=== PATIENT | male | born 1940 | race Caucasian/White ===

== ENCOUNTER 2021-02-10 10:46 | Emergency (ER) | payer MEDICARE ==
[2021-02-10 10:50] VITALS: RESP 16; TEMP 97.8
[2021-02-10 10:58] LABS: Appearance,Urine Clear (Clear); Bilirubin,Urine Negative (Negative); Blood,Urine Negative (Negative); Color,Urine Light Yellow; Glucose,Urine (UA) 4+ (Negative); Ketones,Urine Negative (Negative); Leukocyte Esterase,Urine Negative (Negative); Nitrite,Urine Negative (Negative); Protein,Urine Negative (Negative); Specific Gravity,Urine 1.027 (1.001-1.035); Urobilinogen,Urine <2.0 mg/dL (<2.0)
--- NOTE | 2021-02-10 11:11 | ED ---
Male Urogenital HPI - General Chief complaint: Urogenital Stated complaint: Frequent Urination Source: patient, RN notes reviewed, old records reviewed Mode of arrival: ambulatory Limitations: no limitations - History of Present Illness Initial comments: 80-year-old well-appearing white male presents to the emergency room with family member complaining of urinary frequency and bladder fullness for 6 months. Patient states that he seen Dr. Benavides in August and was told that he did have a enlarged prostate and was put on Flomax. He states that he has increased his dose to twice a day because he still has the symptoms of fullnes, stating when he urinates he still feels like his bladder is full. Patient states that it is now interrupting his sleep where he is unable to Patient denies any fevers, nausea, vomiting or diarrhea. He does not have any pain, complains of frequency and feeling of incomplete emptying. Patient states he's had no change in other medications other than jardiance. Patient is a former smoker. MD Complaint: dysuria -: month(s) (6) Radiation: none Severity scale (1-10): 0 Quality: other (Fullness) Consistency: intermittent Improves with: urination Worsens with: none Reports: other (Increased thirst) - Related Data Allergies Allergy/AdvReac Type Severity Reaction Status Date / Time No Known Allergies Allergy Verified 02/10/21 10:47 Review of Systems ROS Statement: Those systems with pertinent positive or pertinent negative responses have been documented in the HPI. ROS Other: All systems not noted in ROS Statement are negative. Past Medical History Past Medical History: No Reported History History of Any Multi-Drug Resistant Organisms: None Reported Additional Past Surgical History / Comment(s): CABG, lip CA Past Psychological History: No Psychological Hx Reported Smoking Status: Never smoker Past Alcohol Use History: Daily Past Drug Use History: None Reported General Exam Limitations: no limitations General appearance: alert, in no apparent distress Head exam: Present: atraumatic, normocephalic, normal inspection Eye exam: Present: normal appearance, PERRL, EOMI. Absent: scleral icterus, conjunctival injection, periorbital swelling Pupils: Present: normal accommodation ENT exam: Present: normal exam, normal oropharynx, mucous membranes moist Neck exam: Present: normal inspection, full ROM. Absent: tenderness, meningismus, lymphadenopathy Respiratory exam: Present: normal lung sounds bilaterally. Absent: respiratory distress, wheezes, rales, rhonchi, stridor, chest wall tenderness, accessory muscle use, decreased breath sounds, prolonged expiratory Cardiovascular Exam: Present: regular rate, normal rhythm, normal heart sounds. Absent: systolic murmur, diastolic murmur, rubs, gallop, clicks GI/Abdominal exam: Present: soft, tenderness (suprapubic with palpation), normal bowel sounds. Absent: distended, guarding, rebound, rigid Extremities exam: Present: full ROM, normal capillary refill. Absent: tenderne ss, pedal edema, joint swelling, calf tenderness Back exam: Present: normal inspection, full ROM. Absent: tenderness, CVA tenderness (R), CVA tenderness (L), muscle spasm, paraspinal tenderness, vertebral tenderness, rash noted Neurological exam: Present: alert, oriented X3, CN II-XII intact Psychiatric exam: Present: normal affect, normal mood Skin exam: Present: warm, dry, intact, normal color. Absent: rash, cyanosis, diaphoretic, erythema, petechiae, pallor, mottled Course Vital Signs 02/10/21 10:47 Temperature 97.8 F Pulse Rate 93 Respiratory 16 Rate Blood Pressure 114/73 O2 Sat by Pulse 98 Oximetry Medical Decision Making - Medical Decision Making UA shows 4+ glucose but negative for leukocyte esterase, nitrites. Accu-Check 185. Post void bladder scan shows 900 mL. Ll[place] catheter placed patient will be discharged home with a leg bag to follow up with urology. Patient will be given a leg bag and Tylenol threes at discharge. Directed to follow up with urology within the next 7 days. Strict parameters to return to the emergency room with no urine draining into the bag, fever, nausea or vomiting or increased pain. Case discussed with Dr. Kothari. - Lab Data Lab Results 02/10/21 02/10/21 Range/Units 10:52 12:29 POC Glucose (mg/dL) 185 H (75-99) mg/dL POC Glu Row Boss Hoeing ID Ana Cristina Bishop Urine Color Light Yellow Urine Appearance Clear (Clear) Urine pH 5.0 (5.0-8.0) Ur Specific [place] 1.027 (1.001-1.035) Urine Protein Negative (Negative) Urine Glucose (UA) 4+ H (Negative) Urine Ketones Negative (Negative) Urine Blood Negative (Negative) Urine Nitrite Negative (Negative) Urine Bilirubin Negative (Negative) Urine Urobilinogen <2.0 (<2.0) mg/dL Ur Leukocyte Esterase Negative (Negative) Disposition Clinical Impression: Urinary retention Disposition: HOME SELF-CARE Condition: Good Additional Instructions: Keep Llanes catheter in place until seen urology. Use Tylenol threes as needed for pain. Return to the emergency room with any decreased output from the Llanes catheter, fever, or increased pain. Is patient prescribed a controlled substance at d/c from ED?: No Referrals: Andre Berger DO [Primary Care Provider] - 1-2 days Carlitos Clark MD [STAFF PHYSICIAN] - 1-2 days Time of Disposition: 12:45
[2021-02-10] MEDS ORDERED: LIDOCAINE URO-JET JELLY 2% 5 ML KIT URETHRAL ONE (11:48)
[2021-02-10 12:40] LABS: Glucose,Whole Blood 185 mg/dL (75-99)
[2021-02-10] MEDS ORDERED: HYDROcodone/APAP 5-325MG 1 EACH TAB PO STA (12:41)
[2021-02-10] MEDS ORDERED: ACET/COD 300 MG/30 MG STARTER PACK 6 TAB BTL PO STA (12:42)
[2021-02-10 13:06] VITALS: BP 136/89; PULSE 78
== END 2021-02-10 13:05 | disposition home or self-care (01) ==
LOC: EC 10:46
DX: R33.9 Retention of urine, unspecified (principal); R35.0 Frequency of micturition; R30.0 Dysuria; Z87.891 Personal history of nicotine dependence
CPT/HCPCS: 36415; 51702; 51798; 81003; 99283

== ENCOUNTER 2021-09-29 06:14 | Day surgery (SDC) | payer MEDICARE ==
[2021-09-05 10:23] VITALS: BMI 23.2
--- NOTE | 2021-09-27 20:09 | P.GSHP ---
History of Present Illness H&P Date: 09/05/21 Chief Complaint: Urinary retention The patient is a 81-year-old white male who I initially saw in August 2020 for BPH. At that time, bladder emptying was adequate and he was not particularly bothered by his voiding symptoms. He was taking tamsulosin 0.8 mg daily at that time. In February he had an episode of acute urinary retention. 1100 mL of urine was drained from the bladder. Finasteride 5 mg daily was prescribed, to be taken in addition to tamsulosin. He was taught to perform intermittent self- catheterization, which he continues to do. However, he is able to void only small amounts. Urodynamic testing has shown normal detrusor function. Cystoscopy has shown trilobar BPH. He has elected to undergo a TURP to relieve his bladder outflow obstruction. - Constitutional Constitutional: Denies chills, Denies fever - Cardiovascular Cardiovascular: Reports high blood pressure - Genitourinary (Male) Genitourinary: Reports as per HPI Past Medical History Past Medical History: Coronary Artery Disease (CAD), Diabetes Mellitus, Hyperlipidemia, Hypertension Additional Past Medical History / Comment(s): BPH History of Any Multi-Drug Resistant Organisms: None Reported Past Surgical History: Coronary Bypass/CABG Additional Past Surgical History / Comment(s): Lip CA Past Psychological History: No Psychological Hx Reported Smoking Status: Former smoker Past Alcohol Use History: Daily Past Drug Use History: None Reported - Past Family History Mother Family Medical History: No Reported History Medications and Allergies Home Medications Medication Instructions Recorded Confirmed Type Aspirin [Adult Low Dose Aspirin EC] 81 mg PO DAILY 09/05/21 09/05/21 History Carvedilol [Coreg] 6.25 mg PO BID 09/05/21 09/05/21 History Empagliflozin [Jardiance] 25 mg PO DAILY 09/05/21 09/05/21 History Finasteride [Proscar] 5 mg PO DAILY 09/05/21 09/05/21 History Folic Acid 0.8 mg PO DAILY 09/05/21 09/05/21 History Lisinopril-Hctz 20-12.5 mg 1 tab PO DAILY 09/05/21 09/05/21 History [Zestoretic 20-12.5] Lovastatin [Mevacor] 20 mg PO DAILY 09/05/21 09/05/21 History Pioglitazone [Actos] 45 mg PO DAILY 09/05/21 09/05/21 History Tamsulosin [Flomax] 0.4 mg PO BID 09/05/21 09/05/21 History metFORMIN HCL [Glucophage] 1,000 mg PO BID 09/05/21 09/05/21 History Allergies Allergy/AdvReac Type Severity Reaction Status Date / Time No Known Allergies Allergy Verified 09/05/21 10:12 Surgical - Exam - General well developed, well nourished, no distress - Respiratory normal respiratory effort - Abdomen Abdomen: soft, non tender, no guarding, no rigid, no rebound Hernia: umbilical - Genitourinary normal penis with no external lesions, testicles non-tender - Rectum Rectum: normal sphincter tone, no masses, other (Prostate moderately enlarged an d smooth) - Psychiatric oriented to time, oriented to person, oriented to place, speech is normal, memory intact Assessment and Plan (1) Retention of urine, unspecified Status: Acute Code(s): R33.9 - RETENTION OF URINE, UNSPECIFIED SNOMED Code(s): 051552445 (2) Benign prostatic hyperplasia with lower urinary tract symptoms Status: Acute Code(s): N40.1 - BENIGN PROSTATIC HYPERPLASIA WITH LOWER URINARY TRACT SYMP SNOMED Code(s): 506484729 Plan: Cystoscopy, bipolar transurethral resection of prostate (TURP). The procedure has been reviewed in detail with the patient. He is aware of potential risks, which include anesthesia, bleeding, infection, urinary incontinence, and persistent urinary retention. His biggest risk is the requirement to be off Plavix perioperatively. He has been cleared by Dr. Villavicencio for this.
[2021-09-29] MEDS ORDERED: ONDANSETRON 4 MG/2 ML VIAL IVP ONE ×2 (06:37→12:48)
[2021-09-29] MEDS ORDERED: DEXAMETHASONE SOD PHOSPHATE 4 MG/ML 1 ML VIAL IV ONE (06:37)
[2021-09-29] MEDS ORDERED: HYDROmorphone 0.5 MG/0.5 ML SYRINGE IVP PRN (06:37)
[2021-09-29] MEDS: LACTATED RINGERS 1,000 ML IV SCH ×2 (06:52→13:12)
[2021-09-29] MEDS ORDERED: LIDOCAINE 1% (10MG/ML) FOR IV START INTRADERMA ONE (06:53)
[2021-09-29 07:08] LABS: Glucose,Whole Blood 166 mg/dL (75-99)
[2021-09-29] MEDS ORDERED: fentaNYL (PF) 50 MCG/ML 2 ML AMP ONE (07:30)
[2021-09-29] MEDS ORDERED: CALCIUM CHLORIDE 100 MG/ML 10 ML SYRINGE ONE (07:30)
[2021-09-29] MEDS ORDERED: ePHEDrine 50 MG/ML 1 ML VIAL ONE (07:30)
[2021-09-29] MEDS ORDERED: HYDROmorphone (PF) 1 MG/ML ONE (07:30)
[2021-09-29] MEDS ORDERED: PHENYLEPHRINE-0.9% NACL SYG 1,000 MCG/10 ML SYRINGE ONE (07:30)
[2021-09-29] MEDS ORDERED: PROPOFOL 10 MG/ML 20 ML VIAL IV ONE (07:30)
[2021-09-29] MEDS ORDERED: MIDAZOLAM 2 MG/2 ML VIAL ONE (07:30)
[2021-09-29] MEDS ORDERED: LIDOCAINE 1% INJ 10MG/ML (20 ML MDV) ONE (07:30)
[2021-09-29] MEDS ORDERED: SUCCINYLCHOLINE CHLORIDE 100 MG/5 ML SYR IV ONE (07:30)
[2021-09-29] MEDS ORDERED: LACTATED RINGERS 1,000 ML IV ONE (10:48)
[2021-09-29 10:56] VITALS: TEMP 97.4
--- NOTE | 2021-09-29 11:08 | P.OP ---
Date of Procedure: 09/29/21 Preoperative Diagnosis: BPH with obstruction Postoperative Diagnosis: Same Procedure(s) Performed: Cystoscopy, bipolar transurethral resection of prostate (TURP) Anesthesia: BAILEE Surgeon: Nikolas Sigala Estimated Blood Loss (ml): 50 IV fluids (ml): 1,500 Pathology: other (Prostate chips) Condition: stable Disposition: PACU Indications for Procedure: The patient is a 81-year-old white male who I initially saw in August 2020 for BPH. At that time, bladder emptying was adequate and he was not particularly bothered by his voiding symptoms. He was taking tamsulosin 0.8 mg daily at that time. In February he had an episode of acute urinary retention. 1100 mL of urine was drained from the bladder. Finasteride 5 mg daily was prescribed, to be taken in addition to tamsulosin. He was taught to perform intermittent self- catheterization, which he continues to do. However, he is able to void only small amounts. Urodynamic testing has shown normal detrusor function. Cystoscopy has shown trilobar BPH. He has elected to undergo a TURP to relieve his bladder outflow obstruction. Operative Findings: Trilobar BPH, complete occlusion. Description of Procedure: The patient was taken in the operating room and placed in the dorsolithotomy position. The external genitalia was prepped and draped sterilely. The 25- [place] [employer] resectoscope sheath was introduced into the bladder under direct vis ion. The urethra appeared normal. The prostate was visually occluded, with a trilobar configuration.. The bladder was inspected. Both ureteral orifices were of normal anatomic location and configuration. No tumors or foreign bodies were seen. Using the bipolar cutting loop, the median lobe was resected. Next, the lateral lobes were resected down to the surgical capsule. The floor of the prostate was then resected, proximal to the verumontanum. There was more tissue on the right side than the left, and there was considerable tissue at the floor of the prostatic urethra. Next, the remaining anterior tissue was resected. The residual apical tissue was then carefully resected, with care taken to avoid injury to the external urinary sphincter. The apical tissue extended beyond the verumontanum, and it was resected incompletely. The resection was carried down to the surgical capsule bilaterally. The prostatic fossa was then carefully examined, and any areas of bleeding were controlled with electrocautery. Excellent hemostasis was attained. The resectoscope was withdrawn into the bulbous urethra. The external urinary sphincter remained intact. The prostatic fossa was open. The [employer] evacuator was used to remove all prostate chips from the bladder. These were saved and sent for pathologic examination. The resectoscope was removed, and a 20 [place] Llanes catheter was placed. The return was essentially clear. The patient tolerated the procedure well was taken to the recovery room in stable condition.
[2021-09-29 12:29] LABS: Glucose,Whole Blood 203 mg/dL (75-99)
[2021-09-29] MEDS ORDERED: ONDANSETRON 4 MG/2 ML VIAL ONE (12:46)
[2021-09-29 15:12] VITALS: BP 136/76; PULSE 86; RESP 18
== END 2021-09-29 15:19 | disposition home or self-care (01) ==
LOC: OR 06:14
PROVIDERS: ATTEND Urology
DX: N40.1 Benign prostatic hyperplasia with lower urinary tract symptoms (principal); I25.10 Atherosclerotic heart disease of native coronary artery without angina pectoris; I10 Essential (primary) hypertension; E78.5 Hyperlipidemia, unspecified; E11.9 Type 2 diabetes mellitus without complications; N40.0 Benign prostatic hyperplasia without lower urinary tract symptoms; Z95.1 Presence of aortocoronary bypass graft
CPT/HCPCS: 52601; 88305; J2250; J1100; J0690; J2405; J2001; J3010; J1170; J2370; J0330; J2704

== ENCOUNTER 2021-10-07 15:11 | Emergency (ER) | payer MEDICARE ==
[2021-10-07 15:28] VITALS: RESP 18; TEMP 97.4
[2021-10-07] MEDS ORDERED: SODIUM CHLORIDE 0.9% 1,000 ML IV STA (15:28)
[2021-10-07 15:46] LABS: Glucose,Whole Blood 239 mg/dL (75-99)
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
[2021-10-07 15:52] LABS: Albumin 3.6 g/dL (3.5-5.0); Calcium 8.1 mg/dL (8.4-10.2); Magnesium 2.2 mg/dL (1.6-2.3); Total Bilirubin 1.8 mg/dL (0.2-1.3); Total Protein 6.6 g/dL (6.3-8.2)
[2021-10-07 15:53] LABS: Potassium 4.1 mmol/L (3.5-5.1)
[2021-10-07 16:18] LABS: INR 0.9 (<1.2)
[2021-10-07 16:19] LABS: Basophils % (A) 0 %; Eosinophils % (A) 0 %; HCT 39.3 % (39.0-53.0); HGB 13.3 gm/dL (13.0-17.5); Lymphocytes # (A) 0.5 k/uL (1.0-4.8); Lymphocytes % (A) 10 %; MCH 33.7 pg (25.0-35.0); MCHC 33.9 g/dL (31.0-37.0); MCV 99.3 fL (80.0-100.0); Mean Platelet Volume 8.7; Monocytes # (A) 0.4 k/uL (0-1.0); Monocytes % (A) 8 %; Neutrophils # (A) 3.6 k/uL (1.3-7.7); Neutrophils % (A) 77 %; Partial Thromboplastin Time 24.7 sec (22.0-30.0); Platelet Count 163 k/uL (150-450); Prothrombin Time 10.1 sec (9.0-12.0); RBC 3.96 m/uL (4.30-5.90); RDW 13.8 % (11.5-15.5); WBC 4.6 k/uL (3.8-10.6)
--- NOTE | 2021-10-07 17:12 | CT ---
EXAMINATION TYPE: CT brain wo con DATE OF EXAM: 10/07/2021 COMPARISON: None HISTORY: Syncopal episode and slurred speech. CT DLP: 1095.4 mGycm Automated exposure control for dose reduction was used. Images of the brain obtained without contrast. There is cerebral cortical atrophy. There is no mass effect or midline shift. There is no sign of int racranial hemorrhage. Calvarium is intact. There is normal aeration of the mastoid sinuses. IMPRESSION: Cerebral atrophy. No acute intracranial abnormality.
--- NOTE | 2021-10-07 17:12 | XR ---
EXAMINATION TYPE: XR chest 1V portable DATE OF EXAM: 10/07/2021 COMPARISON: NONE HISTORY: Syncope TECHNIQUE: Single view FINDINGS: There are sternal wires. There is no heart failure nor confluent pneumonic infiltrate. Cost ophrenic angles are clear. There are no hilar masses. IMPRESSION: No active cardiopulmonary disease. No heart failure seen.
[2021-10-07 18:46] LABS: Appearance,Urine Cloudy (Clear); Bilirubin,Urine Negative (Negative); Blood,Urine Large (Negative); Budding Yeast,Urine Many /hpf; Color,Urine Yellow; Glucose,Urine (UA) 4+ (Negative); Ketones,Urine Negative (Negative); Leukocyte Esterase,Urine Moderate (Negative); Mucus,Urine Rare /hpf; Nitrite,Urine Negative (Negative); Protein,Urine 1+ (Negative); RBC,Urine 55 /hpf (0-5); Specific Gravity,Urine 1.023 (1.001-1.035); Urobilinogen,Urine <2.0 mg/dL (<2.0); WBC,Urine 76 /hpf (0-5)
[2021-10-07] MEDS ORDERED: cefTRIAXone IN SWFI 1,000 MG/10 ML SYRINGE IVP STA (19:28)
[2021-10-07] MEDS ORDERED: SODIUM CHLORIDE 0.9% 1,000 ML IV SCH (19:30)
[2021-10-07] MEDS ORDERED: CEPHALEXIN 500MG STARTER PACK 4 CAP BTL PO STA (21:20)
[2021-10-07 21:28] VITALS: BP 126/77; PULSE 77
== END 2021-10-07 21:43 | disposition home or self-care (01) ==
LOC: EC 15:11
DX: E86.0 Dehydration (principal); N39.0 Urinary tract infection, site not specified; I25.10 Atherosclerotic heart disease of native coronary artery without angina pectoris; E11.9 Type 2 diabetes mellitus without complications; E78.5 Hyperlipidemia, unspecified; I10 Essential (primary) hypertension; Z79.82 Long term (current) use of aspirin; Z79.84 Long term (current) use of oral hypoglycemic drugs; Z95.1 Presence of aortocoronary bypass graft; Z87.891 Personal history of nicotine dependence; Z85.818 Personal history of malignant neoplasm of other sites of lip, oral cavity, and pharynx
CPT/HCPCS: 99285; 96374; 96361 ×2; 36415; 93005; 80053; 83735; 84484; 85025; 85610; 85730; 81001; 87086; 87077; 87186; 71045; 70450; J0696

== ENCOUNTER 2021-10-10 12:44 | Observation (INO) | payer MEDICARE ==
[2021-10-10 13:05] VITALS: TEMP 98.5
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
[2021-10-10 14:16] LABS: Albumin 3.7 g/dL (3.5-5.0); Calcium 8.6 mg/dL (8.4-10.2); Potassium 4.1 mmol/L (3.5-5.1); Total Bilirubin 1.5 mg/dL (0.2-1.3); Total Protein 6.9 g/dL (6.3-8.2)
[2021-10-10 14:40] LABS: HCT 41.6 % (39.0-53.0); HGB 14.3 gm/dL (13.0-17.5); MCH 33.5 pg (25.0-35.0); MCHC 34.4 g/dL (31.0-37.0); MCV 97.1 fL (80.0-100.0); Mean Platelet Volume 8.3; Platelet Count 160 k/uL (150-450); RBC 4.28 m/uL (4.30-5.90); RDW 12.9 % (11.5-15.5); WBC 5.4 k/uL (3.8-10.6)
[2021-10-10 14:59] LABS: Appearance,Urine Cloudy (Clear); Bilirubin,Urine Negative (Negative); Blood,Urine Large (Negative); Budding Yeast,Urine Moderate /hpf; Color,Urine Light Yellow; Glucose,Urine (UA) 4+ (Negative); Ketones,Urine Negative (Negative); Leukocyte Esterase,Urine Moderate (Negative); Mucus,Urine Rare /hpf; Nitrite,Urine Negative (Negative); Protein,Urine Trace (Negative); RBC,Urine 80 /hpf (0-5); Specific Gravity,Urine 1.023 (1.001-1.035); Urobilinogen,Urine <2.0 mg/dL (<2.0); WBC,Urine 64 /hpf (0-5)
[2021-10-10] MEDS ORDERED: ACETAMINOPHEN TAB 325 MG TAB PO PRN (14:59)
[2021-10-10] MEDS ORDERED: NALOXONE 0.4 MG/ML 1 ML VIAL IV PRN (14:59)
[2021-10-10] MEDS ORDERED: DAPTOmycin 500 MG in SODIUM CHLORIDE 0.9% 50 ML IVPB STA (15:06)
[2021-10-10 15:34] LABS: Eosinophils # (M) 0.05 k/uL (0-0.7); Lymphocytes # (M) 0.76 k/uL (1.0-4.8); Monocytes # (M) 0.32 k/uL (0-1.0); Neutrophils # (M) 4.27 k/uL (1.3-7.7); Neutrophils % (M) 79 %; Nucleated Red Blood Cells 0 /100 WBC (0-0); Total Cells Counted 100
[2021-10-10 15:35] LABS: RBC Morphology Normal
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
--- NOTE | 2021-10-10 16:23 | P.DS ---
Providers Date of admission: 10/10/21 15:23 Expected date of discharge: 10/10/21 Attending physician: Willard Wills MD Consults: 10/10/21 14:59 Consult Physician Urgent Consulting Provider: Kristal Pendleton Consult Reason/Comments: VRE Do you want consulting provider notified?: Yes Primary care physician: [facility] Course: 81-year-old man with medical history of CAD, diabetes, hypertension, hyperlipidemia, recent prostate surgery complicated by urinary tract infection presented with symptoms of dysuria. Patient is afebrile, 121/69, heart rate is 84, 98% on room air. CBC is unremarkable. Chemistries show mild hyponatremia to 134, elevated glucose to 228. LFTs are unremarkable. Urinalysis is positive for protein, glucose, blood, leukocyte esterase, RBCs are 80 and WBCs are 64. This urinalysis is stable from prior urinalysis. Complicated urinary tract infection due to vancomycin-resistant enterococcus -I reviewed patient's urine culture from previous encounter, he has enterococcus that is susceptible to linezolid. Overall, patient is in good health and overall improving, no fevers, hypotension, tachycardia, concerning signs of sepsis. Symptomatically, he reports his dysuria is improving as well. He feels he can take care of himself at home. His is at bedside, and agrees the patient is doing quite well clinically. I do not see an indication for IV antibiotics considering the susceptibility to linezolid. Although linezolid is bacteriostatic cannot bacteriocidal, it can be used in urinary tract infection cases. I recommended to the patient that he can go home with oral linezolid 600 mg by mouth twice a day for total of 5 days, with plan to repeat his urinalysis at his PCPs office. Should he start to develop symptoms concerning for sepsis, I asked that he return to the emergency room. She was symptoms of dysuria and frequency not improve with the antibiotics, he should return to urgent care or the emergency room or contact his PCP. Patient was subsequently discharged home with prescription for linezolid. Hypertension Hyperlipidemia Diabetes CAD BPH status post resection -Home medications were reviewed and reconciled, no changes made on discharge Gen: awake, alert HEENT: normocephalic, atraumatic, good hearing acuity, moist mucous membranes Resp: good air exchange, breathing comfortably with no accessory muscle use CVS: good distal perfusion x 4, GI: soft, NTTP, ND : Positive SPT, no CVAT, ackerman catheter not present MSK: no pitting edema, no clubbing Neuro: non-focal, moving all extremities Psych: cooperative, euthymic mood Patient Condition at Discharge: Good Plan - Discharge Summary New Discharge Prescriptions: New Linezolid [Zyvox] 600 mg PO Q12H 5 Days #10 tab Acetaminophen Tab [Tylenol] 650 mg PO Q6HR PRN tab PRN Reason: Mild Pain Or Fever > 100.5 Continue Tamsulosin [Flomax] 0.4 mg PO BID Lisinopril-Hctz 20-12.5 mg [Zestoretic 20-12.5] 1 tab PO DAILY Folic Acid 0.8 mg PO DAILY Empagliflozin [Jardiance] 25 mg PO DAILY Carvedilol [Coreg] 6.25 mg PO BID Pioglitazone [Actos] 45 mg PO DAILY metFORMIN HCL [Glucophage] 1,000 mg PO BID Lovastatin [Mevacor] 20 mg PO DAILY Finasteride [Proscar] 5 mg PO DAILY Aspirin [Adult Low Dose Aspirin EC] 81 mg PO DAILY Discharge Medication List Aspirin [Adult Low Dose Aspirin EC] 81 mg PO DAILY 09/05/21 [History] Carvedilol [Coreg] 6.25 mg PO BID 09/05/21 [History] Empagliflozin [Jardiance] 25 mg PO DAILY 09/05/21 [History] Finasteride [Proscar] 5 mg PO DAILY 09/05/21 [History] Folic Acid 0.8 mg PO DAILY 09/05/21 [History] Lisinopril-Hctz 20-12.5 mg [Zestoretic 20-12.5] 1 tab PO DAILY 09/05/21 [History] Lovastatin [Mevacor] 20 mg PO DAILY 09/05/21 [History] Pioglitazone [Actos] 45 mg PO DAILY 09/05/21 [History] Tamsulosin [Flomax] 0.4 mg PO BID 09/05/21 [History] metFORMIN HCL [Glucophage] 1,000 mg PO BID 09/05/21 [History] Acetaminophen Tab [Tylenol] 650 mg PO Q6HR PRN tab 10/10/21 [Rx] Linezolid [Zyvox] 600 mg PO Q12H 5 Days #10 tab 10/10/21 [Rx] Follow up Appointment(s)/Referral(s): Andre Berger DO [Primary Care Provider] - 1-2 days
[2021-10-10 17:43] VITALS: BP 123/87; PULSE 89; RESP 18
[2021-10-11] MEDS ORDERED: DAPTOmycin 500 MG in SODIUM CHLORIDE 0.9% 50 ML IVPB SCH (16:00)
== END 2021-10-10 16:53 | disposition home or self-care (01) ==
LOC: EC 12:44 → 6NMEDSUR 15:23
PROVIDERS: ADMIT Internal Medicine; ATTEND Internal Medicine
DX: N39.0 Urinary tract infection, site not specified (principal); B95.2 Enterococcus as the cause of diseases classified elsewhere; I10 Essential (primary) hypertension; E78.5 Hyperlipidemia, unspecified; E87.1 Hypo-osmolality and hyponatremia; E11.65 Type 2 diabetes mellitus with hyperglycemia; I25.10 Atherosclerotic heart disease of native coronary artery without angina pectoris; N40.0 Benign prostatic hyperplasia without lower urinary tract symptoms; Z16.21 Resistance to vancomycin; Z79.82 Long term (current) use of aspirin; Z79.84 Long term (current) use of oral hypoglycemic drugs; Z79.899 Other long term (current) drug therapy; Z85.819 Personal history of malignant neoplasm of unspecified site of lip, oral cavity, and pharynx; Z87.891 Personal history of nicotine dependence; Z95.1 Presence of aortocoronary bypass graft; Z90.79 Acquired absence of other genital organ(s)
CPT/HCPCS: 99284; 96365; 36415; 80053; 83605; 85025; 81001; 87040; 87086; 87077; 87186; G0378; J0878; 99285

== ENCOUNTER 2021-11-21 13:48 | Inpatient (IN) | payer MEDICARE ==
[2021-11-21] MEDS ORDERED: SODIUM CHLORIDE 0.9% 1,000 ML IV STA (13:55)
[2021-11-21] MEDS ORDERED: METOCLOPRAMIDE 5 MG/ML 2 ML VIAL IVP STA (13:56)
[2021-11-21] MEDS ORDERED: FAMOTIDINE 20 MG/2 ML VIAL IV STA (13:56)
--- NOTE | 2021-11-21 13:59 | ED ---
General Adult HPI - General Stated complaint: abd pain Time Seen by Provider: 11/21/21 13:51 Source: patient, RN notes reviewed Limitations: no limitations - History of Present Illness Initial comments: Patient is a pleasant 81-year-old male presenting to the emergency Department with complaints of dizziness. Dizziness has been present for the past 6 weeks. Patient feels like dizziness gets worse with opening eyes and head movement and upright position. Patient is also having some mild abdominal discomfort that is also been present for weeks. Patient feels like he needs have a bowel movement. No vomiting. No weakness. No confusion. - Related Data Home Medications Medication Instructions Recorded Confirmed Aspirin [Adult Low Dose Aspirin EC] 81 mg PO DAILY 09/05/21 11/21/21 Carvedilol [Coreg] 6.25 mg PO BID 09/05/21 11/21/21 Finasteride [Proscar] 5 mg PO DAILY 09/05/21 11/21/21 Folic Acid 0.8 mg PO DAILY 09/05/21 11/21/21 Lovastatin [Mevacor] 20 mg PO DAILY 09/05/21 11/21/21 Pioglitazone [Actos] 45 mg PO DAILY 09/05/21 11/21/21 metFORMIN HCL [Glucophage] 1,000 mg PO BID 09/05/21 11/21/21 Previous Rx's Medication Instructions Recorded Linezolid [Zyvox] 600 mg PO Q12H 5 Days #10 tab 10/10/21 Voriconazole 200 mg PO BID 12 Days #24 tablet 11/25/21 Allergies Allergy/AdvReac Type Severity Reaction Status Date / Time No Known Allergies Allergy Verified 11/21/21 18:12 Review of Systems ROS Statement: Those systems with pertinent positive or pertinent negative responses have been documented in the HPI. ROS Other: All systems not noted in ROS Statement are negative. Constitutional: Denies: fever Eyes: Denies: eye pain ENT: Denies: ear pain Respiratory: Denies: cough Cardiovascular: Denies: chest pain Endocrine: Denies: fatigue Gastrointestinal: Reports: as per HPI, abdominal pain, constipation. Denies: vomiting Genitourinary: Denies: dysuria Musculoskeletal: Denies: back pain Skin: Denies: rash Neurological: Reports: vertigo. Denies: headache, weakness, numbness, paresthesias, confusion Past Medical History Past Medical History: Coronary Artery Disease (CAD), Diabetes Mellitus, Hyperlipidemia, Hypertension Additional Past Medical History / Comment(s): BPH- pt states surgery rescheduled due to snow storm. denies angina or sob. History of Any Multi-Drug Resistant Organisms: VRE Date of last positivie culture/infection: 10/26/21 MDRO Source:: VRE URINE Past Surgical History: Coronary Bypass/CABG, Prostate Surgery, Tonsillectomy Additional Past Surgical History / Comment(s): Lip CA , CABG X2-PT STATES 30 YEARS AGO AND AGAIN 2017, Past Psychological History: No Psychological Hx Reported Smoking Status: Former smoker Past Alcohol Use History: Daily Past Drug Use History: None Reported - Past Family History family Family Medical History: No Reported History General Exam Limitations: no limitations General appearance: alert, in no apparent distress Head exam: Present: normocephalic Eye exam: Present: normal appearance, PERRL, EOMI. Absent: nystagmus ENT exam: Present: normal oropharynx Neck exam: Present: normal inspection Respiratory exam: Present: normal lung sounds bilaterally Cardiovascular Exam: Present: regular rate, normal rhythm Expanded Peripheral pulses: 2+: Posterior Tibialis (R), Posterior Tibialis (L) GI/Abdominal exam: Present: soft, tenderness (Minimal diffuse tenderness), normal bowel sounds. Absent: distended, guarding, rebound, rigid, pulsatile mass Extremities exam: Present: normal inspection Neurological exam: Present: alert, oriented X3, CN II-XII intact. Absent: motor sensory deficit Expanded Neurological exam: Present: protecting the airway Speech: Present: fluid speech Cranial nerves: EOM's Intact: Normal Motor strength exam: RUE: 5, LUE: 5, RLE: 5, LLE: 5 Eye Response: (4) open spontaneously Motor Response: (6) obeys commands Verbal Response: (5) oriented Psychiatric exam: Present: normal affect, normal mood Skin exam: Present: normal color Course Vital Signs 11/21/21 11/21/21 11/21/21 13:51 15:05 16:35 Temperature 98.2 F Pulse Rate 86 78 77 Pulse Rate [ [employer] ] Respiratory 20 18 18 Rate Blood Pressure 109/58 108/56 102/66 Blood Pressure [Left Arm Sitting] Blood Pressure [Left Arm Standing] Blood Pressure [Left Arm Supine] O2 Sat by Pulse 98 96 98 Oximetry 11/21/21 11/21/21 11/21/21 17:58 19:31 20:00 Temperature Pulse Rate 78 79 84 Pulse Rate [ [employer] ] Respiratory 18 18 16 Rate Blood Pressure 110/61 129/64 Blood Pressure [Left Arm Sitting] Blood Pressure [Left Arm Standing] Blood Pressure [Left Arm Supine] O2 Sat by Pulse 97 98 99 Oximetry 11/21/21 11/21/21 11/22/21 21:00 23:00 01:08 Temperature Pulse Rate 80 90 90 Pulse Rate [ [employer]ide ] Respiratory 16 16 16 Rate Blood Pressure 111/66 97/61 83/45 Blood Pressure [Left Arm Sitting] Blood Pressure [Left Arm Standing] Blood Pressure [Left Arm Supine] O2 Sat by Pulse 94 L 95 99 Oximetry 11/22/21 11/22/21 11/22/21 01:56 06:15 07:36 Temperature 98.1 F 97.6 F Pulse Rate 83 96 90 Pulse Rate [ [employer]ide ] Respiratory 16 16 16 Rate Blood Pressure 105/52 94/47 121/72 Blood Pressure [Left Arm Sitting] Blood Pressure [Left Arm Standing] Blood Pressure [Left Arm Supine] O2 Sat by Pulse 98 97 97 Oximetry 11/22/21 11/22/21 11/22/21 07:54 07:55 09:03 Temperature Pulse Rate 84 Pulse Rate [ 90 97 [employer]ide ] Respiratory 19 16 16 Rate Blood Pressure Blood Pressure 110/74 [Left Arm Sitting] Blood Pressure 127/73 [Left Arm Standing] Blood Pressure 112/67 [Left Arm Supine] O2 Sat by Pulse 96 96 Oximetry 11/22/21 11/22/21 11/22/21 10:09 10:54 16:00 Temperature 98.3 F Pulse Rate 74 98 102 H Pulse Rate [ [employer]ide ] Respiratory 16 16 16 Rate Blood Pressure 111/77 152/77 Blood Pressure [Left Arm Sitting] Blood Pressure [Left Arm Standing] Blood Pressure [Left Arm Supine] O2 Sat by Pulse 98 97 Oximetry EKG Findings - EKG Comments: EKG Findings:: Sinus rhythm with rate 81. KS 153. QRS 81. QT 371. QTC 49. Normal axis. Normal QRS. No acute ST change. Medical Decision Making - Lab Data Result diagrams: 11/25/21 06:35 11/25/21 06:35 Lab Results 04/18/22 04/18/22 04/18/22 Range/Units 14:11 14:11 14:11 WBC 4.9 (3.8-10.6) k/uL RBC 3.77 L (4.30-5.90) m/uL Hgb 12.4 L (13.0-17.5) gm/dL Hct 35.2 L (39.0-53.0) % MCV 93.6 (80.0-100.0) fL MCH 33.0 (25.0-35.0) pg MCHC 35.3 (31.0-37.0) g/dL RDW 14.4 (11.5-15.5) % Plt Count 66 L D (150-450) k/uL MPV 9.9 Neutrophils % 61 % Lymphocytes % 19 % Monocytes % 15 % Eosinophils % 1 % Basophils % 1 % Neutrophils # 3.0 (1.3-7.7) k/uL Lymphocytes # 0.9 L (1.0-4.8) k/uL Monocytes # 0.7 (0-1.0) k/uL Eosinophils # 0.0 (0-0.7) k/uL Basophils # 0.0 (0-0.2) k/uL Manual Slide Review Performed PT 12.0 (9.0-12.0) sec INR 1.1 (<1.2) APTT 20.4 L (22.0-30.0) sec Sodium 133 L (137-145) mmol/L Potassium 3.8 (3.5-5.1) mmol/L Chloride 100 (98-107) mmol/L Carbon Dioxide 22 (22-30) mmol/L Anion Gap 11 mmol/L BUN 21 H (9-20) mg/dL Creatinine 1.30 H (0.66-1.25) mg/dL Est GFR (CKD-EPI)AfAm 60 (>60 ml/min/1.73 sqM) Est GFR (CKD-EPI)NonAf 52 (>60 ml/min/1.73 sqM) Glucose 152 H (74-99) mg/dL POC Glucose (mg/dL) (75-99) mg/dL POC Glu [employer] ID Lactic Ac Sepsis Rflx Plasma Lactic Acid Stu (0.7-2.0) mmol/L Calcium 8.1 L (8.4-10.2) mg/dL Total Bilirubin 1.6 H (0.2-1.3) mg/dL AST 21 (17-59) U/L ALT 13 (4-49) U/L Alkaline Phosphatase 59 (38-126) U/L Troponin I (0.000-0.034) ng/mL Total Protein 6.2 L (6.3-8.2) g/dL Albumin 3.4 L (3.5-5.0) g/dL Urine Color Urine Appearance (Clear) Urine pH (5.0-8.0) Ur Specific [place] (1.001-1.035) Urine Protein (Negative) Urine Glucose (UA) (Negative) Urine Ketones (Negative) Urine Blood (Negative) Urine Nitrite (Negative) Urine Bilirubin (Negative) Urine Urobilinogen (<2.0) mg/dL Ur Leukocyte Esterase (Negative) Urine RBC (0-5) /hpf Urine WBC (0-5) /hpf Urine WBC Clumps (None) /hpf Urine Mucus (None) /hpf Urine Yeast (Budding) (None) /hpf Coronavirus (PCR) (Not Detectd) 11/21/21 11/21/21 11/21/21 Range/Units 14:11 14:11 14:40 WBC (3.8-10.6) k/uL RBC (4.30-5.90) m/uL Hgb (13.0-17.5) gm/dL Hct (39.0-53.0) % MCV (80.0-100.0) fL MCH (25.0-35.0) pg MCHC (31.0-37.0) g/dL RDW (11.5-15.5) % Plt Count (150-450) k/uL MPV Neutrophils % % Lymphocytes % % Monocytes % % Eosinophils % % Basophils % % Neutrophils # (1.3-7.7) k/uL Lymphocytes # (1.0-4.8) k/uL Monocytes # (0-1.0) k/uL Eosinophils # (0-0.7) k/uL Basophils # (0-0.2) k/uL Manual Slide Review PT (9.0-12.0) sec INR (<1.2) APTT (22.0-30.0) sec Sodium (137-145) mmol/L Potassium (3.5-5.1) mmol/L Chloride (98-107) mmol/L Carbon Dioxide (22-30) mmol/L Anion Gap mmol/L BUN (9-20) mg/dL Creatinine (0.66-1.25) mg/dL Est GFR (CKD-EPI)AfAm (>60 ml/min/1.73 sqM) Est GFR (CKD-EPI)NonAf (>60 ml/min/1.73 sqM) Glucose (74-99) mg/dL POC Glucose (mg/dL) (75-99) mg/dL POC Glu [employer] ID Lactic Ac Sepsis Rflx Plasma Lactic Acid Stu 3.2 H* (0.7-2.0) mmol/L Calcium (8.4-10.2) mg/dL Total Bilirubin (0.2-1.3) mg/dL AST (17-59) U/L ALT (4-49) U/L Alkaline Phosphatase (38-126) U/L Troponin I <0.012 (0.000-0.034) ng/mL Total Protein (6.3-8.2) g/dL Albumin (3.5-5.0) g/dL Urine Color Dark Brown Urine Appearance Turbid (Clear) Urine pH 6.0 (5.0-8.0) Ur Specific [place] 1.021 (1.001-1.035) Urine Protein 1+ H (Negative) Urine Glucose (UA) 4+ H (Negative) Urine Ketones Negative (Negative) Urine Blood Moderate H (Negative) Urine Nitrite Positive (Negative) Urine Bilirubin 1+ H (Negative) Urine Urobilinogen 3.0 (<2.0) mg/dL Ur Leukocyte Esterase Large H (Negative) Urine RBC 51 H (0-5) /hpf Urine WBC >182 H (0-5) /hpf Urine WBC Clumps Many H (None) /hpf Urine Mucus Few H (None) /hpf Urine Yeast (Budding) Many H (None) /hpf Coronavirus (PCR) (Not Detectd) 11/21/21 11/21/21 11/21/21 Range/Units 14:57 17:23 20:00 WBC (3.8-10.6) k/uL RBC (4.30-5.90) m/uL Hgb (13.0-17.5) gm/dL Hct (39.0-53.0) % MCV (80.0-100.0) fL MCH (25.0-35.0) pg MCHC (31.0-37.0) g/dL RDW (11.5-15.5) % Plt Count (150-450) k/uL MPV Neutrophils % % Lymphocytes % % Monocytes % % Eosinophils % % Basophils % % Neutrophils # (1.3-7.7) k/uL Lymphocytes # (1.0-4.8) k/uL Monocytes # (0-1.0) k/uL Eosinophils # (0-0.7) k/uL Basophils # (0-0.2) k/uL Manual Slide Review PT (9.0-12.0) sec INR (<1.2) APTT (22.0-30.0) sec Sodium (137-145) mmol/L Potassium (3.5-5.1) mmol/L Chloride (98-107) mmol/L Carbon Dioxide (22-30) mmol/L Anion Gap mmol/L BUN (9-20) mg/dL Creatinine (0.66-1.25) mg/dL Est GFR (CKD-EPI)AfAm (>60 ml/min/1.73 sqM) Est GFR (CKD-EPI)NonAf (>60 ml/min/1.73 sqM) Glucose (74-99) mg/dL POC Glucose (mg/dL) (75-99) mg/dL POC Glu [employer] ID Lactic Ac Sepsis Rflx Y Plasma Lactic Acid Stu 0.8 (0.7-2.0) mmol/L Calcium (8.4-10.2) mg/dL Total Bilirubin (0.2-1.3) mg/dL AST (17-59) U/L ALT (4-49) U/L Alkaline Phosphatase (38-126) U/L Troponin I (0.000-0.034) ng/mL Total Protein (6.3-8.2) g/dL Albumin (3.5-5.0) g/dL Urine Color Urine Appearance (Clear) Urine pH (5.0-8.0) Ur Specific [place] (1.001-1.035) Urine Protein (Negative) Urine Glucose (UA) (Negative) Urine Ketones (Negative) Urine Blood (Negative) Urine Nitrite (Negative) Urine Bilirubin (Negative) Urine Urobilinogen (<2.0) mg/dL Ur Leukocyte Esterase (Negative) Urine RBC (0-5) /hpf Urine WBC (0-5) /hpf Urine WBC Clumps (None) /hpf Urine Mucus (None) /hpf Urine Yeast (Budding) (None) /hpf Coronavirus (PCR) Not Detected (Not Detectd) 11/22/21 11/22/21 11/22/21 Range/Units 07:35 11:07 12:25 WBC (3.8-10.6) k/uL RBC (4.30-5.90) m/uL Hgb (13.0-17.5) gm/dL Hct (39.0-53.0) % MCV (80.0-100.0) fL MCH (25.0-35.0) pg MCHC (31.0-37.0) g/dL RDW (11.5-15.5) % Plt Count (150-450) k/uL MPV Neutrophils % % Lymphocytes % % Monocytes % % Eosinophils % % Basophils % % Neutrophils # (1.3-7.7) k/uL Lymphocytes # (1.0-4.8) k/uL Monocytes # (0-1.0) k/uL Eosinophils # (0-0.7) k/uL Basophils # (0-0.2) k/uL Manual Slide Review PT (9.0-12.0) sec INR (<1.2) APTT (22.0-30.0) sec Sodium (137-145) mmol/L Potassium (3.5-5.1) mmol/L Chloride (98-107) mmol/L Carbon Dioxide (22-30) mmol/L Anion Gap mmol/L BUN (9-20) mg/dL Creatinine (0.66-1.25) mg/dL Est GFR (CKD-EPI)AfAm (>60 ml/min/1.73 sqM) Est GFR (CKD-EPI)NonAf (>60 ml/min/1.73 sqM) Glucose (74-99) mg/dL POC Glucose (mg/dL) 186 H 126 H 154 H (75-99) mg/dL POC Glu [employer] Shasta Thornton Taylor Netter, [place], T Lactic Ac Sepsis Rflx Plasma Lactic Acid Stu (0.7-2.0) mmol/L Calcium (8.4-10.2) mg/dL Total Bilirubin (0.2-1.3) mg/dL AST (17-59) U/L ALT (4-49) U/L Alkaline Phosphatase (38-126) U/L Troponin I (0.000-0.034) ng/mL Total Protein (6.3-8.2) g/dL Albumin (3.5-5.0) g/dL Urine Color Urine Appearance (Clear) Urine pH (5.0-8.0) Ur Specific [place] (1.001-1.035) Urine Protein (Negative) Urine Glucose (UA) (Negative) Urine Ketones (Negative) Urine Blood (Negative) Urine Nitrite (Negative) Urine Bilirubin (Negative) Urine Urobilinogen (<2.0) mg/dL Ur Leukocyte Esterase (Negative) Urine RBC (0-5) /hpf Urine WBC (0-5) /hpf Urine WBC Clumps (None) /hpf Urine Mucus (None) /hpf Urine Yeast (Budding) (None) /hpf Coronavirus (PCR) (Not Detectd) 11/22/21 11/22/21 11/23/21 Range/Units 16:55 21:18 07:19 WBC (3.8-10.6) k/uL RBC (4.30-5.90) m/uL Hgb (13.0-17.5) gm/dL Hct (39.0-53.0) % MCV (80.0-100.0) fL MCH (25.0-35.0) pg MCHC (31.0-37.0) g/dL RDW (11.5-15.5) % Plt Count (150-450) k/uL MPV Neutrophils % % Lymphocytes % % Monocytes % % Eosinophils % % Basophils % % Neutrophils # (1.3-7.7) k/uL Lymphocytes # (1.0-4.8) k/uL Monocytes # (0-1.0) k/uL Eosinophils # (0-0.7) k/uL Basophils # (0-0.2) k/uL Manual Slide Review PT (9.0-12.0) sec INR (<1.2) APTT (22.0-30.0) sec Sodium (137-145) mmol/L Potassium (3.5-5.1) mmol/L Chloride (98-107) mmol/L Carbon Dioxide (22-30) mmol/L Anion Gap mmol/L BUN (9-20) mg/dL Creatinine (0.66-1.25) mg/dL Est GFR (CKD-EPI)AfAm (>60 ml/min/1.73 sqM) Est GFR (CKD-EPI)NonAf (>60 ml/min/1.73 sqM) Glucose (74-99) mg/dL POC Glucose (mg/dL) 190 H 233 H 139 H (75-99) mg/dL POC Glu [employer] Kathia Sparks T Wright, Melinda Kirschner, Tiffany Lactic Ac Sepsis Rflx Plasma Lactic Acid Stu (0.7-2.0) mmol/L Calcium (8.4-10.2) mg/dL Total Bilirubin (0.2-1.3) mg/dL AST (17-59) U/L ALT (4-49) U/L Alkaline Phosphatase (38-126) U/L Troponin I (0.000-0.034) ng/mL Total Protein (6.3-8.2) g/dL Albumin (3.5-5.0) g/dL Urine Color Urine Appearance (Clear) Urine pH (5.0-8.0) Ur Specific [place] (1.001-1.035) Urine Protein (Negative) Urine Glucose (UA) (Negative) Urine Ketones (Negative) Urine Blood (Negative) Urine Nitrite (Negative) Urine Bilirubin (Negative) Urine Urobilinogen (<2.0) mg/dL Ur Leukocyte Esterase (Negative) Urine RBC (0-5) /hpf Urine WBC (0-5) /hpf Urine WBC Clumps (None) /hpf Urine Mucus (None) /hpf Urine Yeast (Budding) (None) /hpf Coronavirus (PCR) (Not Detectd) Disposition Clinical Impression: UTI (urinary tract infection), Dizziness Disposition: ADMITTED IP TO THIS HOSP Is patient prescribed a controlled substance at d/c from ED?: No
[2021-11-21 14:44] LABS: Basophils % (A) 1 %; Eosinophils % (A) 1 %; HCT 35.2 % (39.0-53.0); HGB 12.4 gm/dL (13.0-17.5); Lymphocytes # (A) 0.9 k/uL (1.0-4.8); Lymphocytes % (A) 19 %; MCHC 35.3 g/dL (31.0-37.0); MCV 93.6 fL (80.0-100.0); Mean Platelet Volume 9.9; Monocytes # (A) 0.7 k/uL (0-1.0); Monocytes % (A) 15 %; Neutrophils % (A) 61 %; RBC 3.77 m/uL (4.30-5.90); RDW 14.4 % (11.5-15.5); WBC 4.9 k/uL (3.8-10.6)
[2021-11-21 14:50] LABS: INR 1.1 (<1.2)
[2021-11-21 15:02] LABS: Appearance,Urine Turbid (Clear); Bilirubin,Urine 1+ (Negative); Blood,Urine Moderate (Negative); Budding Yeast,Urine Many /hpf; Color,Urine Dark Brown; Glucose,Urine (UA) 4+ (Negative); Ketones,Urine Negative (Negative); Leukocyte Esterase,Urine Large (Negative); Mucus,Urine Few /hpf; Nitrite,Urine Positive (Negative); Protein,Urine 1+ (Negative); RBC,Urine 51 /hpf (0-5); Specific Gravity,Urine 1.021 (1.001-1.035); WBC,Urine >182 /hpf (0-5)
[2021-11-21 15:07] LABS: Albumin 3.4 g/dL (3.5-5.0); Calcium 8.1 mg/dL (8.4-10.2); Potassium 3.8 mmol/L (3.5-5.1); Total Bilirubin 1.6 mg/dL (0.2-1.3); Total Protein 6.2 g/dL (6.3-8.2)
[2021-11-21 15:12] LABS: Partial Thromboplastin Time 20.4 sec (22.0-30.0)
[2021-11-21 15:35] LABS: Platelet Count 66 k/uL (150-450)
--- NOTE | 2021-11-21 16:15 | CT ---
EXAMINATION TYPE: CT brain wo con DATE OF EXAM: 11/21/2021 COMPARISON: CT dated 10/07/2021 HISTORY: Weakness. CT DLP: 1099.4 mGycm Automated exposure control for dose reduction was used. TECHNIQUE: CT scan of the brain is performed without IV contrast administration. FINDINGS: Brain volume loss changes, likely age-related. Bilateral cerebral white matter hypodensities, likely representing chronic microvascular ischemic changes. Scattered arterial atherosclerotic calcification s. No acute intracranial hemorrhage. No gross acute cortical infarct. No midline shift, herniation or ve ntriculomegaly. Unremarkable noland-white matter differentiation, basal cisterns, sella and CP angles. No gross space-o ccupying lesion, vasogenic edema or mass effect. Unremarkable orbits. Grossly unremarkable visualized paranasal sinuses and mastoid air cells. Unremar kable calvarial bones. IMPRESSION: No acute intracranial abnormality or gross space-occupying lesion by this nonenhanced CT scan. Incide ntal findings as described above.
--- NOTE | 2021-11-21 16:53 | CT ---
EXAMINATION TYPE: CT abdomen pelvis w con DATE OF EXAM: 11/21/2021 COMPARISON: None available HISTORY: Abdominal pain. CT DLP: 1147.6 mGycm Automated exposure control for dose reduction was used. TECHNIQUE: Helical acquisition of images was performed from the lung bases through the pelvis. CONTRAST: Performed without Oral Contrast and with IV Contrast, patient injected with 80ml mL of Isovue 300. FINDINGS: LUNG BASES: Bilateral basal subsegmental pulmonary atelectasis. Cardiomegaly with coronary arterial a therosclerotic calcifications and small right pleural reaction. LIVER/GB: No significant abnormality is appreciated. PANCREAS: Annular pancreas. Unremarkable pancreas otherwise. SPLEEN: No significant abnormality is seen. ADRENALS: Right adrenal nodule measuring 2.5 cm, incompletely characterized by this CT scan could rep resent an adrenal adenoma. Follow-up elective dedicated CT adrenal protocol can be considered. Unrema rkable left adrenal. KIDNEYS: A few left renal hypodensities likely representing renal cysts without gross suspicious feat ure. Bilateral perinephric fat stranding and reactive fluid, nonspecific. Acute inflammatory/infectio us process of the kidneys cannot be excluded. No hydroureter or hydronephrosis. FREE AIR: No free air is visualized. RETROPERITONEAL ADENOPATHY: None visualized REPRODUCTIVE ORGANS: Suspected previous transurethral resection of the prostate. Unremarkable seminal vesicles. URINARY BLADDER: Thickened urinary bladder wall with surrounding prominent subcentimeter lymph nodes and intravesical gas, please correlate with recent catheterization. Acute cystitis or urothelial les ion cannot be excluded, please correlate with urinalysis results. PELVIC ADENOPATHY: No pathologically enlarged pelvic lymph nodes. OSSEOUS STRUCTURES: Severe degenerative changes of the lumbar spine with multilevel spinal canal nikolas nosis and neuroforaminal stenosis. Further MRI assessment can be considered. BOWEL: Unremarkable nondistended stomach. Large diverticulum is seen at the duodenojejunal junction. Unremarkable remainder of the small bowel. Fluid-filled rectum, please correlate clinically for diar carson. Scattered uncomplicated colonic diverticulosis. No evidence of acute appendicitis. OTHER: Arterial atherosclerotic calcifications. No sizable ascites. Small left fat-containing inguina l hernia. IMPRESSION: Urinary bladder wall thickening and intravesicular gas, please correlate with recent catheterization/ intervention. Acute cystitis or urothelial lesion cannot be excluded, please correlate with urinalysi s results. Other multiple incidental findings and recommendations as described above.
[2021-11-21] MEDS ORDERED: AMPICILLIN 250 MG VIAL IV ONE (17:22)
[2021-11-21] MEDS ORDERED: cefTRIAXone IN SWFI 1,000 MG/10 ML SYRINGE IVP STA (19:09)
[2021-11-21] MEDS ORDERED: ACETAMINOPHEN TAB 325 MG TAB PO PRN (22:54)
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
[2021-11-22] MEDS: INSULIN ASPART (NovoLOG) 100 UNIT/ML VIAL SQ SCH ×5 (00:22→21:33)
[2021-11-22] MEDS: carvediloL 6.25 MG TAB PO SCH ×3 (01:10→21:32)
[2021-11-22] MEDS: TAMSULOSIN 0.4 MG CAP.ER.24H PO SCH ×3 (01:10→21:33)
[2021-11-22] MEDS: FINASTERIDE 5 MG TAB PO SCH (07:38)
[2021-11-22] MEDS: FOLIC ACID 1 MG TAB PO SCH (07:38)
[2021-11-22] MEDS: ASPIRIN 81 MG PO SCH (07:38)
[2021-11-22] MEDS: ATORVASTATIN 10 MG TAB PO SCH (07:38)
[2021-11-22 07:46] LABS: Glucose,Whole Blood 186 mg/dL (75-99)
[2021-11-22 11:12] LABS: Glucose,Whole Blood 126 mg/dL (75-99)
--- NOTE | 2021-11-22 11:40 | P.PN ---
Subjective Patient was examined at bedside today continues to complain of intractable pain currently rates the tendon to 10. His also notes some gas passing through his urethra proximally 4 days ago. Currently he was examined in the emergency department. He was resting comfortably not complaining of any worsening symptoms. Objective - Vital Signs Vital signs: Vital Signs Temp 97.6 F 11/22/21 07:36 Pulse 98 11/22/21 10:54 Resp 16 11/22/21 10:54 BP 111/77 11/22/21 10:54 Pulse Ox 98 11/22/21 10:54 Intake & Output 11/21/21 11/22/21 11/22/21 18:59 06:59 18:59 Weight 72.575 kg - Exam Constitutional: No acute distress, conversant, pleasant Eyes: Anicteric sclerae, moist conjunctiva, Pupils equal round reactive to light Lungs: Clear to auscultation Clear to percussion Normal respiratory effort, no accessory muscle use Cardiovascular: Heart regular in rate and rhythm, No murmurs, gallops, or rubs No peripheral edema Abdominal: Soft Nontender, no guarding, rebound or rigidity Abdomen moving with respiration Skin: Normal temperature, tone, texture, turgor No induration Extremities: No digital cyanosis No clubbing Pedal pulses intact and symmetrical Radial pulses intact and symmetrical No calf tenderness Psychiatric: Alert and oriented to person, place and time Appropriate affect fair judgement Neuro Muscles Strength 4/5 in all 4 extremities Sensation to light touch grossly present throughout Cranial nerves II-XII grossly intact No focal sensory deficits Lymphatics: no palpable cervical or supraclavicular , or inguinal lymph nodes - Labs CBC & Chem 7: 11/21/21 14:11 11/21/21 14:11 Labs: Abnormal Lab Results - Last 24 Hours (Table) 11/21/21 11/21/21 11/21/21 Range/Units 14:11 14:11 14:11 RBC 3.77 L (4.30-5.90) m/uL Hgb 12.4 L (13.0-17.5) gm/dL Hct 35.2 L (39.0-53.0) % Plt Count 66 L D (150-450) k/uL Lymphocytes # 0.9 L (1.0-4.8) k/uL APTT 20.4 L (22.0-30.0) sec Sodium 133 L (137-145) mmol/L BUN 21 H (9-20) mg/dL Creatinine 1.30 H (0.66-1.25) mg/dL Glucose 152 H (74-99) mg/dL POC Glucose (mg/dL) (75-99) mg/dL Plasma Lactic Acid Stu (0.7-2.0) mmol/L Calcium 8.1 L (8.4-10.2) mg/dL Total Bilirubin 1.6 H (0.2-1.3) mg/dL Total Protein 6.2 L (6.3-8.2) g/dL Albumin 3.4 L (3.5-5.0) g/dL Urine Protein (Negative) Urine Glucose (UA) (Negative) Urine Blood (Negative) Urine Bilirubin (Negative) Ur Leukocyte Esterase (Negative) Urine RBC (0-5) /hpf Urine WBC (0-5) /hpf Urine WBC Clumps (None) /hpf Urine Mucus (None) /hpf Urine Yeast (Budding) (None) /hpf 11/21/21 11/21/21 11/22/21 Range/Units 14:11 14:40 07:35 RBC (4.30-5.90) m/uL Hgb (13.0-17.5) gm/dL Hct (39.0-53.0) % Plt Count (150-450) k/uL Lymphocytes # (1.0-4.8) k/uL APTT (22.0-30.0) sec Sodium (137-145) mmol/L BUN (9-20) mg/dL Creatinine (0.66-1.25) mg/dL Glucose (74-99) mg/dL POC Glucose (mg/dL) 186 H (75-99) mg/dL Plasma Lactic Acid Stu 3.2 H* (0.7-2.0) mmol/L Calcium (8.4-10.2) mg/dL Total Bilirubin (0.2-1.3) mg/dL Total Protein (6.3-8.2) g/dL Albumin (3.5-5.0) g/dL Urine Protein 1+ H (Negative) Urine Glucose (UA) 4+ H (Negative) Urine Blood Moderate H (Negative) Urine Bilirubin 1+ H (Negative) Ur Leukocyte Esterase Large H (Negative) Urine RBC 51 H (0-5) /hpf Urine WBC >182 H (0-5) /hpf Urine WBC Clumps Many H (None) /hpf Urine Mucus Few H (None) /hpf Urine Yeast (Budding) Many H (None) /hpf 11/22/21 Range/Units 11:07 RBC (4.30-5.90) m/uL Hgb (13.0-17.5) gm/dL Hct (39.0-53.0) % Plt Count (150-450) k/uL Lymphocytes # (1.0-4.8) k/uL APTT (22.0-30.0) sec Sodium (137-145) mmol/L BUN (9-20) mg/dL Creatinine (0.66-1.25) mg/dL Glucose (74-99) mg/dL POC Glucose (mg/dL) 126 H (75-99) mg/dL Plasma Lactic Acid Stu (0.7-2.0) mmol/L Calcium (8.4-10.2) mg/dL Total Bilirubin (0.2-1.3) mg/dL Total Protein (6.3-8.2) g/dL Albumin (3.5-5.0) g/dL Urine Protein (Negative) Urine Glucose (UA) (Negative) Urine Blood (Negative) Urine Bilirubin (Negative) Ur Leukocyte Esterase (Negative) Urine RBC (0-5) /hpf Urine WBC (0-5) /hpf Urine WBC Clumps (None) /hpf Urine Mucus (None) /hpf Urine Yeast (Budding) (None) /hpf Microbiology - Last 24 Hours (Table) 11/21/21 14:40 Urine Culture - Preliminary Urine,Voided Assessment and Plan Assessment: Assessment/plan: #1 urinary tract infection/prostatitis #2 BPH status post TURP #3 likely acidosis secondary to above resolved #4 acute kidney injury on CKD most likely prerenal baseline creatinine around 1.3 #5 history of Enterococcus faecalis VRE-, continue to Plan: -Admit to medicine for close monitoring -Aspiration/fall precaution -Continue daptomycin. No previous urine cultures. -Chronic infectious disease consulted -Continue follow repeat microbiology for culture. -Urology also consulted -Computed tomography scan of the abdomen and pelvis suggesting intravesicular gas -CT abdomen and pelvis also showed an incidental normal at 2.5 cm Gen. nodule. Patient is requested to follow palpation. I have instructed him and he is agreeable and aware of this. -DVT prophylaxis
[2021-11-22 12:27] LABS: Glucose,Whole Blood 154 mg/dL (75-99)
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
[2021-11-22 16:56] LABS: Glucose,Whole Blood 190 mg/dL (75-99)
[2021-11-22 21:20] LABS: Glucose,Whole Blood 233 mg/dL (75-99)
[2021-11-23 07:22] LABS: Glucose,Whole Blood 139 mg/dL (75-99)
[2021-11-23] MEDS: INSULIN ASPART (NovoLOG) 100 UNIT/ML VIAL SQ SCH ×4 (10:04→22:01)
[2021-11-23] MEDS: TAMSULOSIN 0.4 MG CAP.ER.24H PO SCH ×2 (10:07→22:02)
[2021-11-23] MEDS: FOLIC ACID 1 MG TAB PO SCH (10:07)
[2021-11-23] MEDS: FINASTERIDE 5 MG TAB PO SCH (10:07)
[2021-11-23] MEDS: ASPIRIN 81 MG PO SCH (10:07)
[2021-11-23] MEDS: carvediloL 6.25 MG TAB PO SCH ×2 (10:07→22:02)
[2021-11-23] MEDS: ATORVASTATIN 10 MG TAB PO SCH (10:07)
--- NOTE | 2021-11-23 11:14 | P.PN ---
Subjective Patient was examined at bedside today not complaining of any new symptom symptomatology. Patient is anticipated for CT cystogram today. Case discussed with RN present at bedside. Patient denies of any fecal mass or gas passing through his urethra. We'll continue monitor closely. Objective - Vital Signs Vital signs: Vital Signs Temp 97.6 F 11/23/21 07:21 Pulse 93 11/23/21 07:21 Resp 18 11/23/21 07:21 BP 126/68 11/23/21 07:21 Pulse Ox 96 11/23/21 07:21 Intake & Output 11/22/21 11/23/21 11/23/21 18:59 06:59 18:59 Intake Total 180 Balance 180 Weight 72.575 kg Intake: Oral 180 Other: Voiding Method Toilet Toilet # Voids 3 - Exam Constitutional: No acute distress, conversant, pleasant Eyes: Anicteric sclerae, moist conjunctiva, Pupils equal round reactive to light Lungs: Clear to auscultation Clear to percussion Normal respiratory effort, no accessory muscle use Cardiovascular: Heart regular in rate and rhythm, No murmurs, gallops, or rubs No peripheral edema Abdominal: Soft Nontender, no guarding, rebound or rigidity Abdomen moving with respiration Skin: Normal temperature, tone, texture, turgor No induration Extremities: No digital cyanosis No clubbing Pedal pulses intact and symmetrical Radial pulses intact and symmetrical No calf tenderness Psychiatric: Alert and oriented to person, place and time Appropriate affect fair judgement Neuro Muscles Strength 4/5 in all 4 extremities Sensation to light touch grossly present throughout Cranial nerves II-XII grossly intact No focal sensory deficits Lymphatics: no palpable cervical or supraclavicular , or inguinal lymph nodes - Labs CBC & Chem 7: 11/21/21 14:11 11/21/21 14:11 Labs: Abnormal Lab Results - Last 24 Hours (Table) 11/22/21 11/22/21 11/22/21 Range/Units 11:07 12:25 16:55 POC Glucose (mg/dL) 126 H 154 H 190 H (75-99) mg/dL 11/22/21 11/23/21 Range/Units 21:18 07:19 POC Glucose (mg/dL) 233 H 139 H (75-99) mg/dL Microbiology - Last 24 Hours (Table) 11/21/21 14:40 Urine Culture - Preliminary Urine,Voided Yeast species Assessment and Plan Assessment: Assessment/plan: #1 urinary tract infection/prostatitis #2 BPH status post TURP #3 likely acidosis secondary to above resolved #4 acute kidney injury on CKD most likely prerenal baseline creatinine around 1.3 #5 history of Enterococcus faecalis VRE-, continue to Plan: -Admit to medicine for close monitoring -Aspiration/fall precaution -Patient anticipated for CT cystogram today. -Continue daptomycin. Noted previous urine cultures. -infectious disease consulted -Continue follow repeat microbiology for culture. -Urology also consulted -Computed tomography scan of the abdomen and pelvis suggesting intravesicular gas -CT abdomen and pelvis also showed an incidental normal at 2.5 cm adrenal nodule. Patient is requested to follow with PCP. I have instructed him and he is agreeable and aware of this. -DVT prophylaxis Disposition patient is scheduled for CT cystogram today pending further recommendations from surgical team.
[2021-11-23 12:31] LABS: Glucose,Whole Blood 207 mg/dL (75-99)
[2021-11-23] MEDS ORDERED: FLUCONAZOLE 100 MG TAB PO SCH (12:45)
--- NOTE | 2021-11-23 12:54 | P.PN ---
Subjective Progress Note Date: 11/23/21 CHIEF COMPLAINT: Pneumaturia HISTORY OF PRESENT ILLNESS: Patient reports having pneumaturia this morning. He also still having dysuria. Denies any passing of stool through the urine. Denies any abdominal pain. He did report having a normal bowel movement today. He is scheduled for a CT cystogram for further evaluation about a colovesical fistula. Unfortunately they're having difficulty to place Llanes catheter. Awaiting urology to place the catheter. Afebrile. Mildly tachycardic. Labs pending PHYSICAL EXAM: VITAL SIGNS: Reviewed. GENERAL: Well-developed in no acute distress. HEENT: No sclera icterus. Extraocular movements grossly intact. Moist buccal mucosa. Head is atraumatic, normocephalic. ABDOMEN: Soft. Nondistended. Nontender. NEUROLOGIC: Alert and oriented. Cranial nerves II through XII grossly intact. ASSESSMENT: 1. Pneumaturia PLAN: -Awaiting CT cystogram for further evaluation of possible colovesical fistula -Awaiting urology to place Llanes catheter before CT cystogram can be completed -Continue supportive care Physician Jacquard Loom Heddles Tier note has been reviewed by physician. Signing provider agrees with the documented findings, assessment, and plan of care. I have personally seen and examined the patient, reviewed the JOB HONER /PAs history, exam and MDM and agree with the assessment and plan as written. Based on total visit time, I have performed more than 50% of the visit. As above: Patient feels better today. CT cystogram shows no obvious fistula. There still seems to be a plane between the gallbladder and the sigmoid colon. Urine culture shows [place]. Will discuss further with urology. Objective - Vital Signs Vital signs: Vital Signs Temp 97.6 F 11/23/21 07:21 Pulse 93 11/23/21 07:21 Resp 18 11/23/21 07:21 BP 126/68 11/23/21 07:21 Pulse Ox 96 11/23/21 07:21 Intake & Output 11/22/21 11/23/21 11/23/21 18:59 06:59 18:59 Intake Total 180 Balance 180 Weight 72.575 kg Intake: Oral 180 Other: Voiding Method Toilet Toilet # Voids 3 - Labs CBC & Chem 7: 11/21/21 14:11 11/21/21 14:11 Labs: Abnormal Lab Results - Last 24 Hours (Table) 11/22/21 11/22/21 11/23/21 Range/Units 16:55 21:18 07:19 POC Glucose (mg/dL) 190 H 233 H 139 H (75-99) mg/dL 11/23/21 Range/Units 12:25 POC Glucose (mg/dL) 207 H (75-99) mg/dL Microbiology - Last 24 Hours (Table) 11/21/21 14:40 Urine Culture - Preliminary Urine,Voided Yeast species
--- NOTE | 2021-11-23 14:54 | P.PN ---
Subjective Progress Note Date: 11/23/21 the patient has a uti and persistent pneumaturia. He saw Dr Cotter yesterday. He will undergo a ct cystogram today. This has been discussed with the patient. Objective - Vital Signs Vital signs: Vital Signs Temp 98.2 F 11/23/21 13:40 Pulse 91 11/23/21 13:40 Resp 18 11/23/21 13:40 BP 106/63 11/23/21 13:40 Pulse Ox 99 11/23/21 13:40 Intake & Output 11/22/21 11/23/21 11/23/21 18:59 06:59 18:59 Intake Total 180 Balance 180 Weight 72.575 kg Intake: Oral 180 Other: Voiding Method Toilet Toilet # Voids 3 2 - Labs CBC & Chem 7: 11/21/21 14:11 11/21/21 14:11 Labs: Abnormal Lab Results - Last 24 Hours (Table) 11/22/21 11/22/21 11/23/21 Range/Units 16:55 21:18 07:19 POC Glucose (mg/dL) 190 H 233 H 139 H (75-99) mg/dL 11/23/21 Range/Units 12:25 POC Glucose (mg/dL) 207 H (75-99) mg/dL Microbiology - Last 24 Hours (Table) 11/21/21 14:40 Urine Culture - Preliminary Urine,Voided Yeast species
--- NOTE | 2021-11-23 15:13 | CDI ---
Documentation Clarification Form Date: 11/23/2021 From: Lisa Bella RN, CCDS Phone: [phone] Admit Date: 11/23/2021 08:09:00 AM Patient Name: Markus Khan Visit Number: [id number] Discharge Date: ATTENTION: The Clinical Documentation Specialists (CDI) and [facility] Coding Staff appreciate your assistance in clarifying documentation. Please respond to the clarification below the line at the bottom and electronically sign. The CDI & [facility] Coding staff will review the response and follow-up if needed. Please note: Queries are made part of the Legal Health Record. If you have any questions, please contact the author of this message via ITS. Dr. Umberto Waterman or Dr. Vicente Brown: Unspecified CKD is documented in the progress note starting on 11/21/21. Additional clarification regarding the stage of CKD is requested. History/Risk Factors: CAD, Diabetes Mellitus, Hyperlipidemia, Hypertension Patients Historical: 11/22 Progress note: Baseline creatinine 1.3 Clinical Indicators: [id number] male with UTI, history of BPH. Progress notes on 11/21/21 has acute kidney injury on CKD most likely prerenal baseline creatinine around 1.3 11/21 BUN 21, CR 1.30, GFR 52 Treatment: Flomax 0.4 MG PO BID .9NS@ 130 MLS/HR IV (11/21) Please clarify the stage of the CKD, if known: [ ] CKD Stage 1 (GFR > 90) [ ] CKD Stage 2 (GFR 60-89) [ ] CKD Stage 3 (GFR 30-59) [ x ] CKD Stage 3a (GFR 45-59) [ ] CKD Stage 3b (GFR 30-44) [ ] Other, please specify [ ] Unable to determine (Template last revised: September 2020) MTDD
--- NOTE | 2021-11-23 15:19 | P.PCN ---
Date of Procedure: 11/23/21 Preoperative Diagnosis: r ecurrent uti, nursing staff unable to pass cath for cystogram Postoperative Diagnosis: same Procedure(s) Performed: difficult catherization Anesthesia: none Description of Procedure: the patient is prespped draped steriley. A 14 fr coude tip catheter is passed into the bladder with cloudy urine return. HE will undergo ct cystogram
--- NOTE | 2021-11-23 16:02 | CT ---
EXAMINATION TYPE: CT Cystogram DATE OF EXAM: 11/23/2021 INDICATION: Evaluate for possible colovesical fistula CT DLP: 1554 mGy.cm Automated Exposure Control for Dose Reduction was Utilized. TECHNIQUE AND CONTRAST: CT scan of the pelvis before and after intra-vesical injection of contrast (CT cystogram). COMPARISON: CT dated 11/21/2021 FINDINGS: Interval insertion of a Llanes catheter with persistent multiple air bubbles within the urinary bladde r. There is also persistent thickening of the urinary bladder wall with surrounding perivesical fat s tranding and prominent subcentimeter lymph node. The retrograde cystogram images demonstrate linear filling defects within the urinary bladder lumen w hich could represent debris or blood clots. Trabeculation is also seen within the urinary bladder wal l. No evidence of extravasation of the injected contrast outside the urinary bladder. No tushar communica tion with the adjacent bowel. Questionable previous transurethral resection of the prostate. Grossly unremarkable seminal vesicles. The rest is unchanged compared to the previous recent CT scan. IMPRESSION: No convincing evidence of a colovesicular fistula by this CT cystogram. Persistent diffuse wall thick ening of the urinary bladder with intravesical gas, perivesical fat stranding and prominent lymph nod es. This could be due to acute cystitis, probably by a gas-forming organism however underlying urothe lial lesion cannot be excluded. Recommend correlation with urinalysis results including cytology. Fur ther cystoscopy can be considered.
[2021-11-23 17:14] LABS: Glucose,Whole Blood 196 mg/dL (75-99)
[2021-11-23 18:52] LABS: HCT 33.1 % (39.6-50.0); HGB 10.6 g/dL (13.0-17.0); MCH 31.2 pg (27.0-32.0); MCV 97.4 fL (80.0-97.0); Mean Platelet Volume 10.8 fL (9.5-12.2); NRBC Per 100 WBC 0.5 /100 WBCS (0.0-0.0); Platelet Count 157 X 10*3/uL (140-440); RDW 14.2 % (11.5-14.5); WBC 5.72 X 10*3/uL (4.50-10.00)
[2021-11-23 19:08] LABS: African American GFR (CKD) 73.6 (60.0-200.0); Anion Gap 12.4 mmol/L (10.00-18.00); BUN/Creat Ratio 10.91 Ratio (12.00-20.00); Calcium 8.8 mg/dL (8.7-10.3); Carbon Dioxide 21.6 mmol/L (20.0-27.5); Non-African American GFR(CKD) 63.5 (60.0-200.0); Potassium 3.9 mmol/L (3.5-5.5)
[2021-11-23 19:46] LABS: Basophils # (M) 0.06 X 10*3/uL (0.00-0.10); Eosinophils # (M) 0.17 X 10*3/uL (0.04-0.35); Lymphocytes # (M) 0.74 X 10*3/uL (0.90-5.00); Metamyelocytes % 1 % (0-0); Monocytes # (M) 0.46 X 10*3/uL (0.20-1.00); Myelocytes % 2 % (0-0); Neutrophils # (M) 4.12 X 10*3/uL (2.00-8.90); Neutrophils % (M) 72 %; RBC Morphology NORMAL
[2021-11-23 21:52] LABS: Glucose,Whole Blood 194 mg/dL (75-99)
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
--- NOTE | 2021-11-24 06:08 | P.PN ---
Subjective Progress Note Date: 11/24/21 The patient is in the hospital with a uti and pneumaturia. He is growing genia which could be producing gas. His cystogram didnt show a fistula. He was started on diflucan by Dr Pendleton. Will follow Objective - Vital Signs Vital signs: Vital Signs Temp 98.2 F 11/24/21 03:13 Pulse 97 11/24/21 03:13 Resp 18 11/24/21 03:13 BP 94/53 11/24/21 03:13 Pulse Ox 98 11/24/21 03:13 Intake & Output 11/23/21 11/23/21 11/24/21 06:59 18:59 06:59 Intake Total 402 Balance 402 Intake: Oral 402 Other: Voiding Method Toilet Toilet Toilet # Voids 3 2 2 - Labs CBC & Chem 7: 11/23/21 10:53 11/23/21 10:53 Labs: Abnormal Lab Results - Last 24 Hours (Table) 11/23/21 11/23/21 11/23/21 Range/Units 07:19 10:53 10:53 RBC 3.40 L (4.40-5.60) X 10*6/uL Hgb 10.6 L (13.0-17.0) g/dL Hct 33.1 L (39.6-50.0) % MCV 97.4 H (80.0-97.0) fL Absolute Nucleated RBC 0.03 H (0.00-0.00) X 10*3/uL Metamyelocytes % 1 H (0-0) % Myelocytes % 2 H (0-0) % Lymphocytes # (Manual) 0.74 L (0.90-5.00) X 10*3/uL NRBC/100 WBC Diff 0.5 H (0.0-0.0) /100 WBCS BUN/Creatinine Ratio 10.91 L (12.00-20.00) Ratio Glucose 207 H (70-110) mg/dL POC Glucose (mg/dL) 139 H (75-99) mg/dL 11/23/21 11/23/21 11/23/21 Range/Units 12:25 17:12 21:50 RBC (4.40-5.60) X 10*6/uL Hgb (13.0-17.0) g/dL Hct (39.6-50.0) % MCV (80.0-97.0) fL Absolute Nucleated RBC (0.00-0.00) X 10*3/uL Metamyelocytes % (0-0) % Myelocytes % (0-0) % Lymphocytes # (Manual) (0.90-5.00) X 10*3/uL NRBC/100 WBC Diff (0.0-0.0) /100 WBCS BUN/Creatinine Ratio (12.00-20.00) Ratio Glucose (70-110) mg/dL POC Glucose (mg/dL) 207 H 196 H 194 H (75-99) mg/dL Microbiology - Last 24 Hours (Table) 11/21/21 14:40 Urine Culture - Final Urine,Voided Genia glabrata
[2021-11-24 07:16] LABS: Glucose,Whole Blood 228 mg/dL (75-99)
[2021-11-24] MEDS: INSULIN ASPART (NovoLOG) 100 UNIT/ML VIAL SQ SCH ×4 (08:23→21:23)
[2021-11-24] MEDS: carvediloL 6.25 MG TAB PO SCH ×2 (08:24→19:56)
[2021-11-24] MEDS: ATORVASTATIN 10 MG TAB PO SCH (08:24)
[2021-11-24] MEDS: FINASTERIDE 5 MG TAB PO SCH (08:24)
[2021-11-24] MEDS: ASPIRIN 81 MG PO SCH (08:24)
[2021-11-24] MEDS: FOLIC ACID 1 MG TAB PO SCH (08:24)
[2021-11-24] MEDS: VORICONAZOLE 200 MG in SODIUM CHLORIDE 0.9% 100 ML IVPB SCH ×2 (08:24→19:56)
[2021-11-24] MEDS: TAMSULOSIN 0.4 MG CAP.ER.24H PO SCH ×2 (08:25→19:56)
[2021-11-24] MEDS ORDERED: FLUCONAZOLE 100 MG TAB PO SCH (09:00)
[2021-11-24 09:39] LABS: Basophils # (A) 0.04 X 10*3/uL (0.00-0.10); Basophils % (A) 0.7 %; Eosinophils # (A) 0.11 X 10*3/uL (0.04-0.35); Eosinophils % (A) 2.1 %; HCT 31.3 % (39.6-50.0); HGB 10.1 g/dL (13.0-17.0); Immature Grans, Automated 3.6 %; Lymphocytes # (A) 1.26 X 10*3/uL (0.90-5.00); Lymphocytes % (A) 23.6 %; MCH 31.1 pg (27.0-32.0); MCHC 32.3 g/dL (32.0-37.0); MCV 96.3 fL (80.0-97.0); Mean Platelet Volume 10.4 fL (9.5-12.2); Monocytes # (A) 0.69 X 10*3/uL (0.20-1.00); Monocytes % (A) 12.9 %; NRBC Per 100 WBC 0.6 /100 WBCS (0.0-0.0); Neutrophils # (A) 3.05 X 10*3/uL (1.80-7.70); Neutrophils % (A) 57.1 %; Platelet Count 163 X 10*3/uL (140-440); RBC 3.25 X 10*6/uL (4.40-5.60); RDW 14.2 % (11.5-14.5); WBC 5.34 X 10*3/uL (4.50-10.00)
[2021-11-24 09:47] LABS: African American GFR (CKD) 82.6 (60.0-200.0); Albumin/Globulin Ratio 1.82 (1.60-3.17); Anion Gap 13.1 mmol/L (10.00-18.00); BUN/Creat Ratio 11.7 Ratio (12.00-20.00); Blood Urea Nitrogen 11.7 mg/dL (9.0-27.0); C Reactive Protein 1.9 mg/dL (0.00-0.80); Calcium 8.6 mg/dL (8.7-10.3); Carbon Dioxide 23.9 mmol/L (20.0-27.5); Globulin 2.2 g/dL (1.6-3.3); Non-African American GFR(CKD) 71.3 (60.0-200.0); Total Bilirubin 0.7 mg/dL (0.30-1.20); Total Protein 6.2 g/dL (6.2-8.2)
--- NOTE | 2021-11-24 11:27 | P.PN ---
Subjective Progress Note Date: 11/24/21 CHIEF COMPLAINT: Pneumaturia HISTORY OF PRESENT ILLNESS: Patient reports that he is still having dysuria. Denies any abdominal pain. Denies passing any air with the urine this morning or last night. Denies any nausea or vomiting. CT cystogram showed no evidence of colovesical fistula. Urine culture growing genia glabrata. Dr. Pendleton started Voriconzole. Afebrile. WBC 5.34 HGB 10.1 plt 163 PHYSICAL EXAM: VITAL SIGNS: Reviewed. GENERAL: Well-developed in no acute distress. HEENT: No sclera icterus. Extraocular movements grossly intact. Moist buccal mucosa. Head is atraumatic, normocephalic. ABDOMEN: Soft. Nondistended. Nontender. NEUROLOGIC: Alert and oriented. Cranial nerves II through XII grossly intact. ASSESSMENT: 1. Pneumaturia 2. Urine growing genia glabrata PLAN: -Continue supportive care -Continue Voriconzole per ID -Further recommendations forthcoming per surgeon -Appreciate urology recommendations Physician Cuprous Chloride Operator note has been reviewed by physician. Signing provider agrees with the documented findings, assessment, and plan of care. I have personally seen and examined the patient, reviewed the SEASONING MIXER /PAs history, exam and MDM and agree with the assessment and plan as written. Based on total visit time, I have performed more than 50% of the visit. As above: Patient doing better today. Urine culture is noted. Possible gas- forming organism in the form of genia. Continue antifungal's. If pneumaturia persists recommend outpatient follow-up. Otherwise patient will follow up with his urologist after discharge. We'll sign off. Please call if needed. Objective - Vital Signs Vital signs: Vital Signs Temp 98.0 F 11/24/21 07:00 Pulse 98 11/24/21 07:00 Resp 18 11/24/21 07:00 BP 143/75 11/24/21 07:00 Pulse Ox 97 11/24/21 07:00 Intake & Output 11/23/21 11/24/21 11/24/21 18:59 06:59 18:59 Intake Total 402 180 Balance 402 180 Intake: Oral 402 180 Other: Voiding Method Toilet Toilet # Voids 2 2 - Labs CBC & Chem 7: 11/24/21 05:41 11/24/21 05:41 Labs: Abnormal Lab Results - Last 24 Hours (Table) 11/23/21 11/23/21 11/23/21 Range/Units 10:53 10:53 12:25 RBC 3.40 L (4.40-5.60) X 10*6/uL Hgb 10.6 L (13.0-17.0) g/dL Hct 33.1 L (39.6-50.0) % MCV 97.4 H (80.0-97.0) fL Absolute Nucleated RBC 0.03 H (0.00-0.00) X 10*3/uL Metamyelocytes % 1 H (0-0) % Myelocytes % 2 H (0-0) % Immature Gran # (0.00-0.04) X 10*3/uL Lymphocytes # (Manual) 0.74 L (0.90-5.00) X 10*3/uL NRBC/100 WBC Diff 0.5 H (0.0-0.0) /100 WBCS BUN/Creatinine Ratio 10.91 L (12.00-20.00) Ratio Glucose 207 H (70-110) mg/dL POC Glucose (mg/dL) 207 H (75-99) mg/dL Calcium (8.7-10.3) mg/dL C-Reactive Protein (0.00-0.80) mg/dL 11/23/21 11/23/21 11/24/21 Range/Units 17:12 21:50 05:41 RBC 3.25 L (4.40-5.60) X 10*6/uL Hgb 10.1 L (13.0-17.0) g/dL Hct 31.3 L (39.6-50.0) % MCV (80.0-97.0) fL Absolute Nucleated RBC 0.03 H (0.00-0.00) X 10*3/uL Metamyelocytes % (0-0) % Myelocytes % (0-0) % Immature Gran # 0.19 H (0.00-0.04) X 10*3/uL Lymphocytes # (Manual) (0.90-5.00) X 10*3/uL NRBC/100 WBC Diff 0.6 H (0.0-0.0) /100 WBCS BUN/Creatinine Ratio (12.00-20.00) Ratio Glucose (70-110) mg/dL POC Glucose (mg/dL) 196 H 194 H (75-99) mg/dL Calcium (8.7-10.3) mg/dL C-Reactive Protein (0.00-0.80) mg/dL 11/24/21 11/24/21 Range/Units 05:41 07:14 RBC (4.40-5.60) X 10*6/uL Hgb (13.0-17.0) g/dL Hct (39.6-50.0) % MCV (80.0-97.0) fL Absolute Nucleated RBC (0.00-0.00) X 10*3/uL Metamyelocytes % (0-0) % Myelocytes % (0-0) % Immature Gran # (0.00-0.04) X 10*3/uL Lymphocytes # (Manual) (0.90-5.00) X 10*3/uL NRBC/100 WBC Diff (0.0-0.0) /100 WBCS BUN/Creatinine Ratio 11.70 L (12.00-20.00) Ratio Glucose 210 H (70-110) mg/dL POC Glucose (mg/dL) 228 H (75-99) mg/dL Calcium 8.6 L (8.7-10.3) mg/dL C-Reactive Protein 1.90 H (0.00-0.80) mg/dL Microbiology - Last 24 Hours (Table) 11/21/21 14:40 Urine Culture - Final Urine,Voided Genia glabrata
[2021-11-24 12:10] LABS: Glucose,Whole Blood 211 mg/dL (75-99)
[2021-11-24 16:59] LABS: Glucose,Whole Blood 196 mg/dL (75-99)
--- NOTE | 2021-11-24 17:48 | P.PN ---
Subjective Patient was seen and examined chart was reviewed no active complaints remains afebrile Objective - Vital Signs Vital signs: Vital Signs Temp 97.8 F 11/24/21 14:42 Pulse 93 11/24/21 14:42 Resp 17 11/24/21 14:42 BP 104/65 11/24/21 14:42 Pulse Ox 96 11/24/21 14:42 Intake & Output 11/23/21 11/24/21 11/24/21 18:59 06:59 18:59 Intake Total 402 420 Balance 402 420 Intake: Oral 402 420 Other: Voiding Method Toilet Toilet # Voids 2 2 4 # Bowel Movements 1 - Exam Constitutional: No acute distress, conversant, pleasant Eyes: Anicteric sclerae, moist conjunctiva, Pupils equal round reactive to light Lungs: Clear to auscultation Clear to percussion Normal respiratory effort, no accessory muscle use Cardiovascular: Heart regular in rate and rhythm, No murmurs, gallops, or rubs No peripheral edema Abdominal: Soft Nontender, no guarding, rebound or rigidity Abdomen moving with respiration Skin: Normal temperature, tone, texture, turgor No induration Extremities: No digital cyanosis No clubbing Pedal pulses intact and symmetrical Radial pulses intact and symmetrical No calf tenderness Psychiatric: Alert and oriented to person, place and time Appropriate affect fair judgement Neuro Muscles Strength 4/5 in all 4 extremities Sensation to light touch grossly present throughout Cranial nerves II-XII grossly intact No focal sensory deficits Lymphatics: no palpable cervical or supraclavicular , or inguinal lymph nodes - Labs CBC & Chem 7: 11/24/21 05:41 11/24/21 05:41 Labs: Abnormal Lab Results - Last 24 Hours (Table) 11/23/21 11/23/21 11/23/21 Range/Units 10:53 10:53 21:50 RBC 3.40 L (4.40-5.60) X 10*6/uL Hgb 10.6 L (13.0-17.0) g/dL Hct 33.1 L (39.6-50.0) % MCV 97.4 H (80.0-97.0) fL Absolute Nucleated RBC 0.03 H (0.00-0.00) X 10*3/uL Metamyelocytes % 1 H (0-0) % Myelocytes % 2 H (0-0) % Immature Gran # (0.00-0.04) X 10*3/uL Lymphocytes # (Manual) 0.74 L (0.90-5.00) X 10*3/uL NRBC/100 WBC Diff 0.5 H (0.0-0.0) /100 WBCS BUN/Creatinine Ratio 10.91 L (12.00-20.00) Ratio Glucose 207 H (70-110) mg/dL POC Glucose (mg/dL) 194 H (75-99) mg/dL Calcium (8.7-10.3) mg/dL C-Reactive Protein (0.00-0.80) mg/dL 11/24/21 11/24/21 11/24/21 Range/Units 05:41 05:41 07:14 RBC 3.25 L (4.40-5.60) X 10*6/uL Hgb 10.1 L (13.0-17.0) g/dL Hct 31.3 L (39.6-50.0) % MCV (80.0-97.0) fL Absolute Nucleated RBC 0.03 H (0.00-0.00) X 10*3/uL Metamyelocytes % (0-0) % Myelocytes % (0-0) % Immature Gran # 0.19 H (0.00-0.04) X 10*3/uL Lymphocytes # (Manual) (0.90-5.00) X 10*3/uL NRBC/100 WBC Diff 0.6 H (0.0-0.0) /100 WBCS BUN/Creatinine Ratio 11.70 L (12.00-20.00) Ratio Glucose 210 H (70-110) mg/dL POC Glucose (mg/dL) 228 H (75-99) mg/dL Calcium 8.6 L (8.7-10.3) mg/dL C-Reactive Protein 1.90 H (0.00-0.80) mg/dL 11/24/21 11/24/21 Range/Units 12:07 16:56 RBC (4.40-5.60) X 10*6/uL Hgb (13.0-17.0) g/dL Hct (39.6-50.0) % MCV (80.0-97.0) fL Absolute Nucleated RBC (0.00-0.00) X 10*3/uL Metamyelocytes % (0-0) % Myelocytes % (0-0) % Immature Gran # (0.00-0.04) X 10*3/uL Lymphocytes # (Manual) (0.90-5.00) X 10*3/uL NRBC/100 WBC Diff (0.0-0.0) /100 WBCS BUN/Creatinine Ratio (12.00-20.00) Ratio Glucose (70-110) mg/dL POC Glucose (mg/dL) 211 H 196 H (75-99) mg/dL Calcium (8.7-10.3) mg/dL C-Reactive Protein (0.00-0.80) mg/dL Microbiology - Last 24 Hours (Table) 11/21/21 14:40 Urine Culture - Final Urine,Voided Genia glabrata Assessment and Plan Plan: #urinary tract infection/prostatitis Urology and infectious disease following Urine culture: Genia albicans Started on Diflucan by infectious diseases EKG: Daily is normal, monitor liver enzyme #BPH status post TURP Continue per urology accommodation #acute kidney injury on CKD most likely prerenal baseline creatinine around 1.3 -CT abdomen and pelvis also showed an incidental normal at 2.5 cm adrenal nodule. Patient is requested to follow with PCP. I have instructed him and he is agreeable and aware of this. -DVT prophylaxis Disposition: Per infection disease [id number]
[2021-11-24 20:23] LABS: Glucose,Whole Blood 244 mg/dL (75-99)
--- NOTE | 2021-11-24 23:38 | P.PN ---
Subjective Progress Note Date: 11/24/21 Principal diagnosis: Complicated urinary tract infection Patient is a 81 year male with a recent history of TURP procedure in this patient subsequently developing urinary tract infection has been treated with multiple courses of antibiotic present hospital with weakness dizziness and burning of urine and a positive UA concerning for a complicated UTI. On today's evaluation that is 11/24/2021, the patient denies having any fever or any chills patient is feeling slightly better, patient urinary burning has slightly decreased no chest pain shortness of breath no cough no abdominal pain no diarrhea Objective - Vital Signs Vital signs: Vital Signs Temp 98.0 F 11/24/21 07:00 Pulse 98 11/24/21 07:00 Resp 18 11/24/21 07:00 BP 143/75 11/24/21 07:00 Pulse Ox 97 11/24/21 07:00 Intake & Output 11/23/21 11/24/21 11/24/21 18:59 06:59 18:59 Intake Total 402 420 Balance 402 420 Intake: Oral 402 420 Other: Voiding Method Toilet Toilet # Voids 2 2 4 # Bowel Movements 1 - Exam GENERAL DESCRIPTION: An elderly male lying in bed in no distress RESPIRATORY SYSTEM: Unlabored breathing , decreased breath sounds at bases HEART: S1 S2 regular rate and rhythm , ABDOMEN: Soft , no tenderness EXTREMITIES: No edema feet - Labs CBC & Chem 7: 11/24/21 05:41 11/24/21 05:41 Labs: Abnormal Lab Results - Last 24 Hours (Table) 11/23/21 11/23/21 11/23/21 Range/Units 10:53 10:53 17:12 RBC 3.40 L (4.40-5.60) X 10*6/uL Hgb 10.6 L (13.0-17.0) g/dL Hct 33.1 L (39.6-50.0) % MCV 97.4 H (80.0-97.0) fL Absolute Nucleated RBC 0.03 H (0.00-0.00) X 10*3/uL Metamyelocytes % 1 H (0-0) % Myelocytes % 2 H (0-0) % Immature Gran # (0.00-0.04) X 10*3/uL Lymphocytes # (Manual) 0.74 L (0.90-5.00) X 10*3/uL NRBC/100 WBC Diff 0.5 H (0.0-0.0) /100 WBCS BUN/Creatinine Ratio 10.91 L (12.00-20.00) Ratio Glucose 207 H (70-110) mg/dL POC Glucose (mg/dL) 196 H (75-99) mg/dL Calcium (8.7-10.3) mg/dL C-Reactive Protein (0.00-0.80) mg/dL 11/23/21 11/24/21 11/24/21 Range/Units 21:50 05:41 05:41 RBC 3.25 L (4.40-5.60) X 10*6/uL Hgb 10.1 L (13.0-17.0) g/dL Hct 31.3 L (39.6-50.0) % MCV (80.0-97.0) fL Absolute Nucleated RBC 0.03 H (0.00-0.00) X 10*3/uL Metamyelocytes % (0-0) % Myelocytes % (0-0) % Immature Gran # 0.19 H (0.00-0.04) X 10*3/uL Lymphocytes # (Manual) (0.90-5.00) X 10*3/uL NRBC/100 WBC Diff 0.6 H (0.0-0.0) /100 WBCS BUN/Creatinine Ratio 11.70 L (12.00-20.00) Ratio Glucose 210 H (70-110) mg/dL POC Glucose (mg/dL) 194 H (75-99) mg/dL Calcium 8.6 L (8.7-10.3) mg/dL C-Reactive Protein 1.90 H (0.00-0.80) mg/dL 11/24/21 11/24/21 Range/Units 07:14 12:07 RBC (4.40-5.60) X 10*6/uL Hgb (13.0-17.0) g/dL Hct (39.6-50.0) % MCV (80.0-97.0) fL Absolute Nucleated RBC (0.00-0.00) X 10*3/uL Metamyelocytes % (0-0) % Myelocytes % (0-0) % Immature Gran # (0.00-0.04) X 10*3/uL Lymphocytes # (Manual) (0.90-5.00) X 10*3/uL NRBC/100 WBC Diff (0.0-0.0) /100 WBCS BUN/Creatinine Ratio (12.00-20.00) Ratio Glucose (70-110) mg/dL POC Glucose (mg/dL) 228 H 211 H (75-99) mg/dL Calcium (8.7-10.3) mg/dL C-Reactive Protein (0.00-0.80) mg/dL Microbiology - Last 24 Hours (Table) 11/21/21 14:40 Urine Culture - Final Urine,Voided Genia glabrata Assessment and Plan (1) UTI (urinary tract infection) Current Visit: No Status: Acute Code(s): N39.0 - URINARY TRACT INFECTION, SITE NOT SPECIFIED SNOMED Code(s): 03476915 Plan: 1patient presented to hospital with weakness and dizzinessdid have significant burning of urine positive UA and abnormality on the CT suspicious for cystitis with culture done this admission showing a Genia. 2patient urine is growing Genia glabrata for which the patient was started on voriconazole and seemed to have shown some clinical improvement if continued to improve to finish a 10 day course of oral voriconazole on discharge Time with Patient: Less than 30
[2021-11-25 07:15] LABS: Glucose,Whole Blood 220 mg/dL (75-99)
--- NOTE | 2021-11-25 07:55 | P.PN ---
Subjective Progress Note Date: 11/25/21 The patient has been in the hospital with a recurrent urine infection and pneumaturia. This has occurred for the last couple of months. He did have a TURP by for urine retention back in September. His symptoms however persisted. He did a computed tomography scan and a CT cystogram to make sure there is no colovesical fistula and none was identified. There is a nice plane between the colon and the bladder. The urine culture which originally grew VRE enterococcus now is growing Genia. He was placed on intravenous Diflucan and his symptoms have abated significantly. He will go home on oral Diflucan. I explained to the patient that I could not tell him a long he had need to be on t his. I suspect he has a chronic prostatitis. He'll be seen in the office in one week. Urologic standpoint he can go home. Objective - Vital Signs Vital signs: Vital Signs Temp 97.2 F L 11/25/21 07:00 Pulse 104 H 11/25/21 07:00 Resp 18 11/25/21 07:00 BP 115/56 11/25/21 07:00 Pulse Ox 97 11/25/21 07:00 Intake & Output 11/24/21 11/25/21 11/25/21 18:59 06:59 18:59 Intake Total 600 Balance 600 Intake: Oral 600 Other: Voiding Method Toilet # Voids 4 1 # Bowel Movements 1 - Labs CBC & Chem 7: 11/24/21 05:41 11/24/21 05:41 Labs: Abnormal Lab Results - Last 24 Hours (Table) 11/24/21 11/24/21 11/24/21 Range/Units 05:41 05:41 12:07 RBC 3.25 L (4.40-5.60) X 10*6/uL Hgb 10.1 L (13.0-17.0) g/dL Hct 31.3 L (39.6-50.0) % Absolute Nucleated RBC 0.03 H (0.00-0.00) X 10*3/uL Immature Gran # 0.19 H (0.00-0.04) X 10*3/uL NRBC/100 WBC Diff 0.6 H (0.0-0.0) /100 WBCS BUN/Creatinine Ratio 11.70 L (12.00-20.00) Ratio Glucose 210 H (70-110) mg/dL POC Glucose (mg/dL) 211 H (75-99) mg/dL Calcium 8.6 L (8.7-10.3) mg/dL C-Reactive Protein 1.90 H (0.00-0.80) mg/dL 11/24/21 11/24/21 11/25/21 Range/Units 16:56 20:22 07:05 RBC (4.40-5.60) X 10*6/uL Hgb (13.0-17.0) g/dL Hct (39.6-50.0) % Absolute Nucleated RBC (0.00-0.00) X 10*3/uL Immature Gran # (0.00-0.04) X 10*3/uL NRBC/100 WBC Diff (0.0-0.0) /100 WBCS BUN/Creatinine Ratio (12.00-20.00) Ratio Glucose (70-110) mg/dL POC Glucose (mg/dL) 196 H 244 H 220 H (75-99) mg/dL Calcium (8.7-10.3) mg/dL C-Reactive Protein (0.00-0.80) mg/dL
[2021-11-25] MEDS: TAMSULOSIN 0.4 MG CAP.ER.24H PO SCH (08:02)
[2021-11-25] MEDS: ASPIRIN 81 MG PO SCH (08:02)
[2021-11-25] MEDS: ATORVASTATIN 10 MG TAB PO SCH (08:02)
[2021-11-25] MEDS: INSULIN ASPART (NovoLOG) 100 UNIT/ML VIAL SQ SCH ×2 (08:02→12:47)
[2021-11-25] MEDS: FINASTERIDE 5 MG TAB PO SCH (08:03)
[2021-11-25] MEDS: FOLIC ACID 1 MG TAB PO SCH (08:03)
[2021-11-25] MEDS: carvediloL 6.25 MG TAB PO SCH (08:03)
[2021-11-25] MEDS: VORICONAZOLE 200 MG in SODIUM CHLORIDE 0.9% 100 ML IVPB SCH (08:07)
[2021-11-25 09:22] LABS: HCT 33.2 % (39.6-50.0); HGB 10.3 g/dL (13.0-17.0); NRBC Per 100 WBC 0 /100 WBCS (0.0-0.0); Platelet Count 154 X 10*3/uL (140-440); RBC 3.32 X 10*6/uL (4.40-5.60); RDW 14.9 % (11.5-14.5); WBC 5.73 X 10*3/uL (4.50-10.00)
[2021-11-25 09:29] LABS: African American GFR (CKD) 82.6 (60.0-200.0); Albumin 3.9 g/dL (3.8-4.9); Albumin/Globulin Ratio 1.7 (1.60-3.17); Anion Gap 11.8 mmol/L (10.00-18.00); BUN/Creat Ratio 10.6 Ratio (12.00-20.00); Blood Urea Nitrogen 10.6 mg/dL (9.0-27.0); Calcium 8.5 mg/dL (8.7-10.3); Carbon Dioxide 24.2 mmol/L (20.0-27.5); Globulin 2.3 g/dL (1.6-3.3); Non-African American GFR(CKD) 71.3 (60.0-200.0); Potassium 3.8 mmol/L (3.5-5.5); Total Bilirubin 0.9 mg/dL (0.30-1.20); Total Protein 6.2 g/dL (6.2-8.2)
[2021-11-25 11:53] LABS: Glucose,Whole Blood 202 mg/dL (75-99)
--- NOTE | 2021-11-25 12:25 | P.PN ---
Subjective Patient was seen and examined chart was reviewed no active complaints remains afebrile Patient has been treated for chronic prostatitis. Patient urine grew Genia glabrata, sensitivity to voriconazole. Patient started voriconazole with the plan to go home on oral voriconazole. Objective - Vital Signs Vital signs: Vital Signs Temp 97.2 F L 11/25/21 07:00 Pulse 104 H 11/25/21 07:00 Resp 18 11/25/21 07:00 BP 115/56 11/25/21 07:00 Pulse Ox 97 11/25/21 07:00 Intake & Output 11/24/21 11/25/21 11/25/21 18:59 06:59 18:59 Intake Total 600 180 Balance 600 180 Intake: Oral 600 180 Other: Voiding Method Toilet # Voids 4 1 # Bowel Movements 1 - Exam Constitutional: No acute distress, conversant, pleasant Eyes: Anicteric sclerae, moist conjunctiva, Pupils equal round reactive to light Lungs: Clear to auscultation Clear to percussion Normal respiratory effort, no accessory muscle use Cardiovascular: Heart regular in rate and rhythm, No murmurs, gallops, or rubs No peripheral edema Abdominal: Soft Nontender, no guarding, rebound or rigidity Abdomen moving with respiration Skin: Normal temperature, tone, texture, turgor No induration Extremities: No digital cyanosis No clubbing Pedal pulses intact and symmetrical Radial pulses intact and symmetrical No calf tenderness Psychiatric: Alert and oriented to person, place and time Appropriate affect fair judgement Neuro Muscles Strength 4/5 in all 4 extremities Sensation to light touch grossly present throughout Cranial nerves II-XII grossly intact No focal sensory deficits Lymphatics: no palpable cervical or supraclavicular , or inguinal lymph nodes - Labs CBC & Chem 7: 11/25/21 06:35 11/25/21 06:35 Labs: Abnormal Lab Results - Last 24 Hours (Table) 11/24/21 11/24/21 11/25/21 Range/Units 16:56 20:22 06:35 RBC 3.32 L (4.40-5.60) X 10*6/uL Hgb 10.3 L (13.0-17.0) g/dL Hct 33.2 L (39.6-50.0) % MCV 100.0 H (80.0-97.0) fL MCHC 31.0 L (32.0-37.0) g/dL RDW 14.9 H (11.5-14.5) % BUN/Creatinine Ratio (12.00-20.00) Ratio Glucose (70-110) mg/dL POC Glucose (mg/dL) 196 H 244 H (75-99) mg/dL Calcium (8.7-10.3) mg/dL 11/25/21 11/25/21 11/25/21 Range/Units 06:35 07:05 11:52 RBC (4.40-5.60) X 10*6/uL Hgb (13.0-17.0) g/dL Hct (39.6-50.0) % MCV (80.0-97.0) fL MCHC (32.0-37.0) g/dL RDW (11.5-14.5) % BUN/Creatinine Ratio 10.60 L (12.00-20.00) Ratio Glucose 211 H (70-110) mg/dL POC Glucose (mg/dL) 220 H 202 H (75-99) mg/dL Calcium 8.5 L (8.7-10.3) mg/dL Assessment and Plan Plan: #urinary tract infection/chronic prostatitis Urology and infectious disease following Urine culture: Genia glabrata Started on IV voriconazole by infectious diseaseJos switched to oral voriconazole discharge #BPH status post TURP Continue per urology accommodation #acute kidney injury on CKD most likely prerenal baseline creatinine around 1.3 -CT abdomen and pelvis also showed an incidental normal at 2.5 cm adrenal nodule. Patient is requested to follow with PCP. I have instructed him and he is agreeable and aware of this. -DVT prophylaxis Disposition: Discharge home once okay with urology and infectious disease
[2021-11-25 13:45] VITALS: BP 100/56; PULSE 88; RESP 16; TEMP 97.6
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
== END 2021-11-25 15:06 | disposition home or self-care (01) | DRG 728 ==
LOC: EC 13:48 → 6NMEDSUR 11-22 06:29 → OBSVTOIN 11-23 08:09
PROVIDERS: ADMIT Internal Medicine; ATTEND Internal Medicine
PROC: BT101ZZ Fluoroscopy of Bladder using Low Osmolar Contrast (ICD-10-PCS; principal; 2021-11-23)
DX: B37.41 Candidal cystitis and urethritis (principal); N17.9 Acute kidney failure, unspecified; E87.2 Acidosis; N18.31 Chronic kidney disease, stage 3a; E11.22 Type 2 diabetes mellitus with diabetic chronic kidney disease; D69.6 Thrombocytopenia, unspecified; Z20.822 Contact with and (suspected) exposure to COVID-19; N41.1 Chronic prostatitis; I25.10 Atherosclerotic heart disease of native coronary artery without angina pectoris; I12.9 Hypertensive chronic kidney disease with stage 1 through stage 4 chronic kidney disease, or unspecified chronic kidney disease; R42 Dizziness and giddiness; N40.0 Benign prostatic hyperplasia without lower urinary tract symptoms; R39.89 Other symptoms and signs involving the genitourinary system; E78.5 Hyperlipidemia, unspecified; Z90.79 Acquired absence of other genital organ(s); Z95.1 Presence of aortocoronary bypass graft; Z79.82 Long term (current) use of aspirin; Z79.899 Other long term (current) drug therapy; Z79.84 Long term (current) use of oral hypoglycemic drugs; Z87.891 Personal history of nicotine dependence; Z87.440 Personal history of urinary (tract) infections; Z85.819 Personal history of malignant neoplasm of unspecified site of lip, oral cavity, and pharynx
CPT/HCPCS: 36415; 70450; 72192; 74177; 80048; 80053; 81001; 83605; 84484; 85025; 85027; 85610; 85730; 86140; 87086; 87635; 93005; 96361; 96365; 96375; 99285

== ENCOUNTER 2022-02-19 14:47 | Emergency (ER) | payer MEDICARE ==
[2022-02-19 14:54] VITALS: TEMP 97.9
[2022-02-19] MEDS ORDERED: KETOROLAC 15 MG/ML 1 ML VIAL IVP STA ×2 (14:57→16:33)
[2022-02-19] MEDS ORDERED: diazePAM 5 MG TAB PO STA (14:58)
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
--- NOTE | 2022-02-19 15:33 | XR ---
EXAMINATION TYPE: XR lumbosacral spine min 4V DATE OF EXAM: 02/19/2022 COMPARISON: NONE HISTORY: Back pain TECHNIQUE: 5 views FINDINGS: The lumbar vertebrae have normal alignment. There is degenerative disc space narrowing thro ughout the lumbar spine with spur formation. No compression fracture. Abdominal aorta is atheromatous . The sacroiliac joints are intact. IMPRESSION: Moderate multilevel spondylotic changes. No fracture. No change compared to CT scan of .
[2022-02-19] MEDS ORDERED: ORPHENADRINE 30 MG/ML 2 ML VIAL IVP STA (16:33)
[2022-02-19] MEDS ORDERED: ACET/COD 300 MG/30 MG STARTER PACK 6 TAB BTL PO STA (17:48)
[2022-02-19 18:07] VITALS: BP 138/78; PULSE 85; RESP 18
== END 2022-02-19 18:00 | disposition home or self-care (01) ==
LOC: EC 14:47
DX: S39.012A Strain of muscle, fascia and tendon of lower back, initial encounter (principal); I10 Essential (primary) hypertension; E11.9 Type 2 diabetes mellitus without complications; E78.5 Hyperlipidemia, unspecified; Z87.891 Personal history of nicotine dependence; Z79.84 Long term (current) use of oral hypoglycemic drugs; Z79.899 Other long term (current) drug therapy; Z79.82 Long term (current) use of aspirin; X58.XXXA Exposure to other specified factors, initial encounter; Y93.H2 Activity, gardening and landscaping
CPT/HCPCS: 72110; 99284; 96374; 96375; 96376; J2360; J1885

== ENCOUNTER 2022-03-11 18:15 | Inpatient (IN) | payer MEDICARE ==
[2022-03-11] MEDS ORDERED: MORPHINE SULFATE 4 MG/ML SYRINGE IVP STA (19:06)
--- NOTE | 2022-03-11 19:09 | ED ---
General Adult HPI - General Chief complaint: Recheck/Abnormal Lab/Rx Stated complaint: Infection in back/Sent by PCP Time Seen by Provider: 03/11/22 18:35 Source: patient, family, RN notes reviewed, old records reviewed (MRI shows L2/3 discitis possible osteomyelitis) Mode of arrival: ambulatory Limitations: no limitations - History of Present Illness Initial comments: Patient is a pleasant 81-year-old male presenting to the emergency Department with back pain. Symptoms have been present around 3 weeks. No fevers. Discomfort does increase with movement. Discomfort is moderate to severe. No leg weakness. No loss of sensation. No retention or loss of control of bowel or bladder products. Patient does have history of mild back problems previously however not severe enough to see her doctor. - Related Data Home Medications Medication Instructions Recorded Confirmed Aspirin [Adult Low Dose Aspirin EC] 81 mg PO DAILY 09/05/21 11/21/21 Finasteride [Proscar] 5 mg PO DAILY 09/05/21 11/21/21 Folic Acid 0.8 mg PO DAILY 09/05/21 11/21/21 Lovastatin [Mevacor] 20 mg PO DAILY 09/05/21 11/21/21 Pioglitazone [Actos] 45 mg PO DAILY 09/05/21 11/21/21 carvediloL [Coreg] 6.25 mg PO BID 09/05/21 11/21/21 metFORMIN HCL [Glucophage] 1,000 mg PO BID 09/05/21 11/21/21 Previous Rx's Medication Instructions Recorded Linezolid [Zyvox] 600 mg PO Q12H 5 Days #10 tab 10/10/21 Voriconazole 200 mg PO BID 12 Days #24 tablet 11/25/21 Cyclobenzaprine [Flexeril] 5 mg PO TID #20 tab 02/19/22 Ketorolac [Toradol] 10 mg PO Q6HR #15 tab 02/19/22 Allergies Allergy/AdvReac Type Severity Reaction Status Date / Time No Known Allergies Allergy Verified 03/11/22 18:33 Review of Systems ROS Statement: Those systems with pertinent positive or pertinent negative responses have been documented in the HPI. ROS Other: All systems not noted in ROS Statement are negative. Constitutional: Denies: fever, chills Eyes: Denies: eye pain ENT: Denies: ear pain Respiratory: Denies: cough Cardiovascular: Denies: chest pain Endocrine: Denies: fatigue Gastrointestinal: Denies: abdominal pain Genitourinary: Denies: dysuria Musculoskeletal: Reports: as per HPI, back pain Skin: Denies: rash Neurological: Denies: weakness Past Medical History Past Medical History: Coronary Artery Disease (CAD), Diabetes Mellitus, Hyperlipidemia, Hypertension Additional Past Medical History / Comment(s): BPH- pt states surgery rescheduled due to snow storm. denies angina or sob. History of Any Multi-Drug Resistant Organisms: VRE Date of last positivie culture/infection: 10/26/21 MDRO Source:: VRE URINE Past Surgical History: Coronary Bypass/CABG, Prostate Surgery, Tonsillectomy Additional Past Surgical History / Comment(s): Lip CA , CABG X2-PT STATES 30 YEARS AGO AND AGAIN 2017, Past Anesthesia/Blood Transfusion Reactions: No Reported Reaction Past Psychological History: No Psychological Hx Reported Smoking Status: Former smoker Past Alcohol Use History: Daily Past Drug Use History: None Reported - Past Family History Mother Family Medical History: No Reported History family Family Medical History: No Reported History General Exam Limitations: no limitations General appearance: alert, in no apparent distress Head exam: Present: normocephalic Eye exam: Present: normal appearance Neck exam: Present: normal inspection Respiratory exam: Present: normal lung sounds bilaterally Cardiovascular Exam: Present: regular rate, normal rhythm GI/Abdominal exam: Present: soft. Absent: tenderness Extremities exam: Present: normal inspection Back exam: Present: vertebral tenderness (Lower lumbar) Neurological exam: Present: alert. Absent: motor sensory deficit Expanded Sensory exam: Lower Extremity Light Touch: Normal Motor strength exam: RLE: 5, LLE: 5 Psychiatric exam: Present: normal affect, normal mood Skin exam: Present: normal color Course Vital Signs 03/11/22 18:28 Temperature 97.6 F Pulse Rate 76 Respiratory 18 Rate Blood Pressure 168/88 O2 Sat by Pulse 96 Oximetry Medical Decision Making - Medical Decision Making Case was discussed with Dr. Morales who will notify Dr. munoz for consult. [facility] [place] physician group has been paged for admission covering Dr. Davis Rodríguez. IV antibiotics will be started. Case was discussed with Dr. Broussard, who will admit. Disposition Clinical Impression: Discitis Disposition: ADMITTED IP TO THIS HOSP Is patient prescribed a controlled substance at d/c from ED?: No Referrals: Andre Berger DO [Primary Care Provider] - 1-2 days Time of Disposition: 20:03
[2022-03-11] MEDS ORDERED: ONDANSETRON 4 MG/2 ML VIAL IVP PRN (20:04)
[2022-03-11] MEDS ORDERED: NALOXONE 0.4 MG/ML 1 ML VIAL IV PRN (20:04)
[2022-03-11] MEDS ORDERED: ACETAMINOPHEN TAB 325 MG TAB PO PRN (20:04)
[2022-03-11] MEDS ORDERED: HYDROmorphone 0.5 MG/0.5 ML SYRINGE IVP PRN (20:04)
[2022-03-11] MEDS ORDERED: VANCOMYCIN IV PER PHARMACY 1 EACH MISC MISCELLANE PRN (20:08)
[2022-03-11] MEDS ORDERED: VANCOMYCIN 1,250 MG in SODIUM CHLORIDE 0.9% 250 ML IVPB STA (20:12)
[2022-03-11 20:25] LABS: Basophils % (A) 0 %; Eosinophils % (A) 0 %; HCT 41.5 % (39.0-53.0); HGB 13.3 gm/dL (13.0-17.5); Lymphocytes # (A) 1.2 k/uL (1.0-4.8); Lymphocytes % (A) 16 %; MCH 28.9 pg (25.0-35.0); MCHC 32.1 g/dL (31.0-37.0); MCV 89.9 fL (80.0-100.0); Mean Platelet Volume 7.2; Monocytes # (A) 0.4 k/uL (0-1.0); Monocytes % (A) 5 %; Neutrophils # (A) 5.7 k/uL (1.3-7.7); Neutrophils % (A) 76 %; Platelet Count 256 k/uL (150-450); RBC 4.62 m/uL (4.30-5.90); RDW 14.8 % (11.5-15.5); WBC 7.5 k/uL (3.8-10.6)
[2022-03-11 20:47] LABS: ALT 14 U/L (4-49); AST 18 U/L (17-59); African American GFR (CKD) >90 (>60 ml/min/1.73 sqM); Albumin 4.2 g/dL (3.5-5.0); Alkaline Phosphatase 88 U/L (38-126); Anion Gap 11 mmol/L; Blood Urea Nitrogen 32 mg/dL (9-20); Calcium 9.7 mg/dL (8.4-10.2); Carbon Dioxide 23 mmol/L (22-30); Chloride 100 mmol/L (98-107); Glucose 222 mg/dL (74-99); Non-African American GFR(CKD) 84 (>60 ml/min/1.73 sqM); Potassium 4.6 mmol/L (3.5-5.1); Sodium 134 mmol/L (137-145); Total Bilirubin 0.8 mg/dL (0.2-1.3); Total Protein 7.4 g/dL (6.3-8.2)
[2022-03-11] MEDS: SODIUM CHLORIDE 0.9% 1,000 ML IV SCH (22:27)
[2022-03-11 22:29] LABS: Partial Thromboplastin Time 23.7 sec (22.0-30.0)
--- NOTE | 2022-03-12 03:09 | P.HPIM ---
History of Present Illness H&P Date: 03/11/22 Chief Complaint: Low back pain 81-year-old male with diabetes mellitus, BPH, hypertension, CAD with CABG Patient comes in for evaluation upon abnormal results on his lumbar MRI showing possible discitis/osteomyelitis. Patient denies any fevers or chills he reports improvement in his overall low back pain which has started about 3 weeks ago when he exhausted himself with y saurab[employer] work suddenly started noticing some stiffness in his lower back which Progressively getting worse for about a week when eventually he came into the ED that was 2 weeks ago for evaluation x-rays were done and he was diagnosed with paraspinal lumbar muscles strain and recommendations were made to follow up with his regular doctor. His PCP ordered an MRI due to persistent low back pain and today was resulted suggesting possible discitis and osteomyelitis of L2 and L3. Patient denies any fevers or chills denies any saddle numbness or paresthesia denies any radiculopathic pain denies any weakness numbness or tingling in his bilateral extremities however he does report that he doesn't feel safe when standing up and he's been using a walker however this has been improving over the past few days. He denies any falls or injuries otherwise. Denies any history of back surgery Patient denies any changes in his urinary habits or bowel habits denies any urinary retention or constipation denies any incontinence. Workup in the ED showed no leukocytosis CRP was within normal limits overall l abs with within normal limits. Lactic acid slightly elevated at 2.1 Patient denies any tobacco smoking and illicit drugs. He admits to occasional alcohol. Review of Systems Pertinent positives as noted in HPI. All other systems were reviewed and are negative Past Medical History Past Medical History: Coronary Artery Disease (CAD), Diabetes Mellitus, Hyperlipidemia, Hypertension, Syncope Additional Past Medical History / Comment(s): BPH History of Any Multi-Drug Resistant Organisms: VRE Date of last positivie culture/infection: 10/26/21 MDRO Source:: VRE URINE Past Surgical History: Coronary Bypass/CABG, Prostate Surgery, Tonsillectomy Additional Past Surgical History / Comment(s): Lip CA , CABG X2-PT STATES 30 YEARS AGO AND AGAIN 2017, Past Anesthesia/Blood Transfusion Reactions: No Reported Reaction Past Psychological History: No Psychological Hx Reported Additional Psychological History / Comment(s): Pt resides with his spouse. He is independent. Smoking Status: Former smoker Past Alcohol Use History: Daily Additional Past Alcohol Use History / Comment(s): Pt started smoking in 1959 and quit in the . He has a shot iof alcohol a day Past Drug Use History: None Reported - Past Family History Mother Family Medical History: No Reported History family Family Medical History: No Reported History Medications and Allergies Home Medications Medication Instructions Recorded Confirmed Type Aspirin [Adult Low Dose Aspirin EC] 81 mg PO DAILY 09/05/21 11/21/21 History Finasteride [Proscar] 5 mg PO DAILY 09/05/21 11/21/21 History Folic Acid 0.8 mg PO DAILY 09/05/21 11/21/21 History Lovastatin [Mevacor] 20 mg PO DAILY 09/05/21 11/21/21 History Pioglitazone [Actos] 45 mg PO DAILY 09/05/21 11/21/21 History carvediloL [Coreg] 6.25 mg PO BID 09/05/21 11/21/21 History metFORMIN HCL [Glucophage] 1,000 mg PO BID 09/05/21 11/21/21 History Linezolid [Zyvox] 600 mg PO Q12H 5 Days #10 tab 10/10/21 11/21/21 Rx Voriconazole 200 mg PO BID 12 Days #24 tablet 11/25/21 Rx Cyclobenzaprine [Flexeril] 5 mg PO TID #20 tab 02/19/22 Rx Ketorolac [Toradol] 10 mg PO Q6HR #15 tab 02/19/22 Rx Allergies Allergy/AdvReac Type Severity Reaction Status Date / Time No Known Allergies Allergy Verified 03/11/22 18:33 Physical Exam Vitals: Vital Signs Temp Pulse Pulse Resp BP BP Pulse Ox 03/11/22 22:57 51 L 183/93 03/11/22 22:37 97.7 F 43 L 16 196/98 98 03/11/22 21:35 81 18 03/11/22 18:28 97.6 F 76 18 168/88 96 Intake and Output 03/11/22 03/11/22 03/12/22 14:59 22:59 06:59 Other: Voiding Method Toilet Weight 74.843 kg Constitutional: No acute distress, conversant, pleasant Eyes: Anicteric sclerae, moist conjunctiva, Pupils equal round reactive to light ENMT: NC/AT Oropharynx clear, no erythema, or exudates Neck: Supple, FROM, no masses, or JVD No carotid bruits No thyromegaly Lungs: Clear to auscultation Clear to percussion Normal respiratory effort, no accessory muscle use Cardiovascular: Heart regular in rate and rhythm, No murmurs, gallops, or rubs No peripheral edema Abdominal: Soft Nontender, no guarding, rebound or rigidity Abdomen moving with respiration Normoactive bowel sounds No hepatomegaly, No splenomegaly No palpable mass No abdominal wall hernia noted No focal tenderness to palpation of the spine. No skin changes over the lumbar spine no warmth to the touch no edema no swelling Skin: Normal temperature, tone, texture, turgor No induration No subcutaneous nodules No rash, lesions No ulcers Extremities: No digital cyanosis No clubbing Pedal pulses intact and symmetrical Radial pulses intact and symmetrical No calf tenderness Psychiatric: Alert and oriented to person, place and time Appropriate affect fair judgement Neuro Muscles Strength 5/5 in all 4 extremities Sensation to light touch grossly present throughout Cranial nerves II-XII grossly intact No focal sensory deficits Lymphatics: no palpable cervical or supraclavicular , or inguinal lymph nodes Results CBC & Chem 7: 03/11/22 19:20 03/11/22 19:20 Labs: Abnormal Lab Results - Last 24 Hours (Table) 03/11/22 03/11/22 Range/Units 19:20 20:32 Sodium 134 L (137-145) mmol/L BUN 32 H (9-20) mg/dL Glucose 222 H (74-99) mg/dL Plasma Lactic Acid Stu 2.1 H* (0.7-2.0) mmol/L Thrombosis Risk Factor Assmnt - Choose All That Apply Any of the Below Risk Factors Present?: No Other Risk Factors: Yes Each Risk Factor Represents 3 Points: Age 75 years or older Other congenital or acquired thrombophilia - If yes, enter type in comment: No Thrombosis Risk Factor Assessment Total Risk Factor Score: 3 Thrombosis Risk Factor Assessment Level: Moderate Risk Assessment and Plan Assessment: Abnormal MRI finding of lumbar spine rule out discitis/osteomyelitis CRP within normal limits No leukocytosis No reported fevers or chills Follow-up cultures Patient initiated on vancomycin Orthopedic consultation Pain control with opiates Tylenol for fever IV fluid hydration with normal saline Fall precautions PT/OT eval Chronic conditions BPH continue with finasteride Hypertension continue with Coreg, clonidine when necessary for systolic above 180 Diabetes mellitus, insulin sliding scale CAD with history of CABG, continue with aspirin and statin DVT prophylaxis heparin subcu 3 times a day Full code
[2022-03-12] MEDS ORDERED: cloNIDine HCL 0.1 MG TAB PO PRN (03:12)
[2022-03-12] MEDS: HYDROmorphone 1 MG/ML 1 ML SYRINGE IVP PRN ×2 (03:36→08:05)
[2022-03-12 07:22] LABS: Glucose,Whole Blood 168 mg/dL (70-110)
[2022-03-12] MEDS: FINASTERIDE 5 MG TAB PO SCH ×2 (08:09→08:11)
[2022-03-12] MEDS: carvediloL 6.25 MG TAB PO SCH ×2 (08:10→18:01)
[2022-03-12] MEDS: INSULIN ASPART (NovoLOG) 100 UNIT/ML VIAL SQ SCH ×4 (08:11→21:03)
[2022-03-12] MEDS: ATORVASTATIN 10 MG TAB PO SCH (08:11)
[2022-03-12] MEDS: ASPIRIN 81 MG PO SCH (08:11)
[2022-03-12] MEDS ORDERED: VANCOMYCIN 1,250 MG in SODIUM CHLORIDE 0.9% 250 ML IVPB SCH (10:00)
[2022-03-12 12:27] LABS: Glucose,Whole Blood 198 mg/dL (70-110)
[2022-03-12] MEDS ORDERED: tiZANidine 4 MG TAB PO PRN (12:53)
--- NOTE | 2022-03-12 13:01 | P.PN ---
Subjective Progress Note Date: 03/12/22 Principal diagnosis: Back pain Patient was seen and examined. No acute events overnight. Patient reports well controlled pain in his lower back. No bladder or bowel incontinence. No saddle anesthesia. No fever or chills. Objective - Vital Signs Vital signs: Vital Signs Temp 97.8 F 03/12/22 12:22 Pulse 81 03/12/22 12:22 Resp 18 03/12/22 12:22 BP 149/82 03/12/22 12:22 Pulse Ox 97 03/12/22 12:22 FiO2 Intake & Output 03/11/22 03/12/22 03/12/22 18:59 06:59 18:59 Intake Total 590 Balance 590 Weight 74.843 kg 74.843 kg Intake: Oral 590 Other: Voiding Method Toilet # Voids 4 - Exam General: [non toxic], [no distress], [appears at stated age] Derm: [warm], [dry] Head: [atraumatic], [normocephalic], [symmetric] Eyes: [EOMI], [no lid lag], [anicteric sclera] Mouth: [no lip lesion], [mucus membranes moist] Ext: [no gross muscle atrophy], [Tenderness to palpation R paraspinal muscles], [no contractures] Neuro: [no focal neuro deficits] Psych: [Alert], [oriented], [appropriate affect] - Labs CBC & Chem 7: 03/11/22 19:20 03/11/22 19:20 Labs: Abnormal Lab Results - Last 24 Hours (Table) 03/11/22 03/11/22 03/12/22 Range/Units 19:20 20:32 06:21 Sodium 134 L (137-145) mmol/L BUN 32 H (9-20) mg/dL Glucose 222 H (74-99) mg/dL POC Glucose (mg/dL) (70-110) mg/dL Hemoglobin A1c 9.9 H (0.0-6.0) % Plasma Lactic Acid Stu 2.1 H* (0.7-2.0) mmol/L 03/12/22 03/12/22 Range/Units 07:21 12:25 Sodium (137-145) mmol/L BUN (9-20) mg/dL Glucose (74-99) mg/dL POC Glucose (mg/dL) 168 H 198 H (70-110) mg/dL Hemoglobin A1c (0.0-6.0) % Plasma Lactic Acid Stu (0.7-2.0) mmol/L Assessment and Plan Assessment: Abnormal MRI finding of lumbar spine rule out discitis/osteomyelitis CRP within normal limits No leukocytosis No reported fevers or chills Follow-up cultures Patient initiated on vancomycin Orthopedic consultation Infectious disease consultation Pain control with Tizanidine and Tramadol as needed Tylenol for fever IV fluid hydration with normal saline Fall precautions PT/OT eval Chronic conditions BPH continue with finasteride Hypertension continue with Coreg, clonidine when necessary for systolic above 180 Diabetes mellitus, insulin sliding scale CAD with history of CABG, continue with aspirin and statin DVT prophylaxis heparin subcu 3 times a day Full code
[2022-03-12] MEDS: tiZANidine 4 MG TAB PO SCH ×2 (13:16→21:03)
[2022-03-12] MEDS: traMADol 50 MG TAB PO PRN ×2 (13:16→21:02)
--- NOTE | 2022-03-12 14:07 | P.CNOR ---
History of Present Illness - [facility] Consult date: 03/12/22 Consult reason: back pain History of present illness: This is a 81-year-old male who is admitted for ongoing problems with his low back. He was seen by his primary care physician who ordered an MRI. The MRI had findings consistent with discitis at L2-3 and he was admitted for IV antibiotics. The patient is slightly sedated secondary to pain medication but is able to provide some history. He states that about 3 weeks ago he was riding his lawnmower for quite a while then began having back pain. He states that he had difficulty getting off of the lawnmower secondary to the back pain. He states that he did have a fall a while back when he passed out but does not recall if it was before or after the back pain began. He states that he did recently have a urinary tract infection which was treated with antibiotics. He states that his urinary symptoms have resolved. He currently denies any numbness or tingling down the legs. He denies weakness to legs. He denies bowel or bladder dysfunction. White blood cell count and CRP are normal. Lactic acid is elevated 2.1. The patient has been afebrile. Past Medical History Past Medical History: Coronary Artery Disease (CAD), Diabetes Mellitus, Hyperlipidemia, Hypertension, Syncope Additional Past Medical History / Comment(s): BPH 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 He is independent. Smoking Status: Former smoker Past Alcohol Use History: Daily Additional Past Alcohol Use History / Comment(s): Pt started smoking in 1960 and quit in the . He has a shot iof alcohol a day Past Drug Use History: None Reported - Past Family History Mother Family Medical History: No Reported History family Family Medical History: No Reported History Medications and Allergies Home Medications Medication Instructions Recorded Confirmed Type Aspirin [Adult Low Dose Aspirin EC] 81 mg PO DAILY 09/05/21 03/12/22 History Finasteride [Proscar] 5 mg PO DAILY 09/05/21 03/12/22 History Folic Acid 0.8 mg PO DAILY 09/05/21 03/12/22 History Lovastatin [Mevacor] 20 mg PO DAILY 09/05/21 03/12/22 History Pioglitazone [Actos] 45 mg PO DAILY 09/05/21 03/12/22 History carvediloL [Coreg] 6.25 mg PO BID 09/05/21 03/12/22 History metFORMIN HCL [Glucophage] 1,000 mg PO BID 09/05/21 03/12/22 History Furosemide [Lasix] 20 mg PO BID 03/12/22 03/12/22 History tiZANidine [Zanaflex] 4 mg PO DAILY 03/12/22 03/12/22 History traMADol HCL 50 mg PO Q12H PRN 03/12/22 03/12/22 History Allergies Allergy/AdvReac Type Severity Reaction Status Date / Time No Known Allergies Allergy Verified 03/11/22 18:33 Physical Examination This is a pleasant 81-year-old male in no acute distress. He is slightly groggy from pain medication. He is able to participate with the exam. He seems to be oriented X3. Exam of the head neck reveal no obvious deformity. He has full cervical spine motion without difficulty or pain. There is no pain to palpation about cervical spine or paraspinal musculature. Exam of the upper extremities reveal no obvious deformity. He has fairly good shoulder, elbow, wrist and finger motion bilaterally without pain. Neurovasc ular status the upper extremities intact. Exam of the thoracic and lumbar spine reveal no obvious deformity. Skin is intact. There are no areas of ecchymosis, erythema or abrasions. There is minimal tenderness to palpation in the L2-3 region. He is nontender over the thoracic or lower lumbar spine. There is minimal paraspinal musculature tenderness in the lumbar region. Exam of the lower extremities reveals no hip irritability. He is able to straight leg raise bilaterally without pain. He has 5/5 strength to the quadriceps. There is slight weakness with dorsiflexion of the great toe against resistance on the right foot compared to the left. Right foot 3-4/5, left foot 5/5 strength. No clonus noted. Neurovascular status to the lower extremity is intact. Results MRI of the lumbar spine which was performed prior to his admission reveals degenerative changes throughout. There is increased signal at the L2 and L3 vertebral bodies. There is edema in the L2-3 disc space. There are findings suspicious for discitis. White blood cell count is 7.5. CRP is 0.6. Lactic acid is elevated at 2.1. - Labs Labs: Abnormal Lab Results - Last 24 Hours (Table) 03/11/22 03/11/22 03/12/22 Range/Units 19:20 20:32 07:21 Sodium 134 L (137-145) mmol/L BUN 32 H (9-20) mg/dL Glucose 222 H (74-99) mg/dL POC Glucose (mg/dL) 168 H (70-110) mg/dL Plasma Lactic Acid Stu 2.1 H* (0.7-2.0) mmol/L H & H 03/11/22 Range/Units 19:20 Hgb 13.3 (13.0-17.5) gm/dL Hct 41.5 (39.0-53.0) % Coagulation 03/11/22 Range/Units 21:28 INR 1.0 (<1.2) Result Diagrams: 03/11/22 19:20 03/11/22 19:20 Assessment and Plan (1) Low back pain Current Visit: Yes Status: Acute Code(s): M54.50 - LOW BACK PAIN, UNSPECIFIED SNOMED Code(s): 815544222 (2) Discitis Current Visit: Yes Status: Acute Code(s): M46.40 - DISCITIS, UNSPECIFIED, SITE UNSPECIFIED SNOMED Code(s): 4458255 Plan: The clinical and radiographic findings are discussed with the patient. I have reviewed the case with Dr. Hurst. He will review the MRI. There is no plan for emergent surgical intervention. Continue IV antibiotics. Appreciate evaluation and recommendations by infectious disease.
[2022-03-12] MEDS: SODIUM CHLORIDE 0.9% 1,000 ML IV SCH (15:50)
[2022-03-12] MEDS ORDERED: tiZANidine 4 MG TAB PO SCH (16:00)
[2022-03-12 17:39] LABS: Glucose,Whole Blood 175 mg/dL (70-110)
[2022-03-12 20:46] LABS: Glucose,Whole Blood 194 mg/dL (70-110)
--- NOTE | 2022-03-12 22:48 | P.CONS ---
History of Present Illness - Reason for Consult Consult date: 03/12/22 Discitis/Osteomyelitis Requesting physician: Nilay Lopez - Chief Complaint Lower back pain 3 week - History of Present Illness Patient is a 81-year male with a past medical history significant for TURP procedure done September 29, 2021, patient apparently did have a multiple UTIs after his surgical procedure as the patient urine culture positive for Enterococcus faecalis followed by VRE and Genia glabrata patient apparently seem to have done well since then with a last urine culture positive on 11/21/2021, patient apparently started having increasing lower back pain that has been going on for the last 3 weeks patient mention has been doing more exercises and may have a sore on his back no history of any fall or trauma patient did have a MRI of the lumbar sacral spine completed on 03/11/2022 which has been read as edema and L2-L3 vertebral bodies with increased fluid signal in the disc consistent with discitis and possible osteomyelitis patient subsequently has been brought to the hospital patient was admitted he was started on empiric Rocephin and vancomycin infectious disease was consulted for further management of antibiotic therapy patient denies having any fever or any chills over the last 2 to 3 weeks patient has been complaining of lower back pain more of a dull aching with intensity 5-6 out of 10 and no radiation denies having any bowel or bladder problems, infectious disease was consulted for further management of antibiotic therapy Review of Systems Positive point has been mentioned in the HPI rest of the systems are negative Past Medical History Past Medical History: Coronary Artery Disease (CAD), Diabetes Mellitus, Hyperlipidemia, Hypertension, Syncope Additional Past Medical History / Comment(s): BPH 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 He is independent. Smoking Status: Former smoker Past Alcohol Use History: Daily Additional Past Alcohol Use History / Comment(s): Pt started smoking in 1960 and quit in the . He has a shot iof alcohol a day Past Drug Use History: None Reported - Past Family History Mother Family Medical History: No Reported History family Family Medical History: No Reported History Medications and Allergies Home Medications Medication Instructions Recorded Confirmed Type Aspirin [Adult Low Dose Aspirin EC] 81 mg PO DAILY 09/05/21 03/12/22 History Finasteride [Proscar] 5 mg PO DAILY 09/05/21 03/12/22 History Folic Acid 0.8 mg PO DAILY 09/05/21 03/12/22 History Lovastatin [Mevacor] 20 mg PO DAILY 09/05/21 03/12/22 History Pioglitazone [Actos] 45 mg PO DAILY 09/05/21 03/12/22 History carvediloL [Coreg] 6.25 mg PO BID 09/05/21 03/12/22 History metFORMIN HCL [Glucophage] 1,000 mg PO BID 09/05/21 03/12/22 History Furosemide [Lasix] 20 mg PO BID 03/12/22 03/12/22 History tiZANidine [Zanaflex] 4 mg PO DAILY 03/12/22 03/12/22 History traMADol HCL 50 mg PO Q12H PRN 03/12/22 03/12/22 History Allergies Allergy/AdvReac Type Severity Reaction Status Date / Time No Known Allergies Allergy Verified 03/11/22 18:33 Physical Exam Vitals: Vital Signs Temp Pulse Pulse Resp BP BP Pulse Ox 03/12/22 12:22 97.8 F 81 18 149/82 97 03/12/22 10:28 162/79 03/12/22 09:00 222/97 03/12/22 05:00 97.6 F 83 16 176/92 98 03/11/22 22:57 51 L 183/93 03/11/22 22:37 97.7 F 43 L 16 196/98 98 03/11/22 21:35 81 18 03/11/22 18:28 97.6 F 76 18 168/88 96 Intake and Output 03/11/22 03/12/22 03/12/22 22:59 06:59 14:59 Intake Total 590 Balance 590 Intake: Oral 590 Other: Voiding Method Toilet # Voids 4 Weight 74.843 kg GENERAL DESCRIPTION: Elderly male lying in bed, no distress. No tachypnea or accessory muscle of respiration use. HEENT: Shows Pallor , no scleral icterus. Oral mucous membrane is dry. No pharyngeal erythema or thrush NECK: Trachea central, no thyromegaly. LUNGS: Unlabored breathing. Clear to auscultation anteriorly. No wheeze or crackle. HEART: S1, S2, regular rate and rhythm. No loud murmur ABDOMEN: Soft, no tenderness , guarding or rigidity, no organomegaly EXTREMITIES: No edema of feet. SKIN: No rash, no masses palpable. NEUROLOGICAL: The patient is awake, alert, oriented x3, mood and affect normal. Results CBC & Chem 7: 03/14/22 07:05 03/14/22 07:05 Labs: Abnormal Lab Results - Last 24 Hours (Table) 03/11/22 03/11/22 03/12/22 Range/Units 19:20 20:32 06:21 Sodium 134 L (137-145) mmol/L BUN 32 H (9-20) mg/dL Glucose 222 H (74-99) mg/dL POC Glucose (mg/dL) (70-110) mg/dL Hemoglobin A1c 9.9 H (0.0-6.0) % Plasma Lactic Acid Stu 2.1 H* (0.7-2.0) mmol/L 03/12/22 03/12/22 Range/Units 07:21 12:25 Sodium (137-145) mmol/L BUN (9-20) mg/dL Glucose (74-99) mg/dL POC Glucose (mg/dL) 168 H 198 H (70-110) mg/dL Hemoglobin A1c (0.0-6.0) % Plasma Lactic Acid Stu (0.7-2.0) mmol/L Assessment and Plan (1) Discitis Current Visit: Yes Status: Acute Code(s): M46.40 - DISCITIS, UNSPECIFIED, SITE UNSPECIFIED SNOMED Code(s): 1268767 Plan: 1patient been complaining of lower back pain for 3 weeks in this patient with n o fever no tenderness no white count however did have abnormal MRI of the lumbosacral spine underlying discitis not entirely excluded. 2we will request for IR aspirate of the affected area and the fluid should be sent for gram stain and culture. 3as the patient does not look toxic not running any fever white count is normal we will discontinue his antibiotic to increase the yield of these culture this was explained in detail and in simple [place] to both the patient and his daughter and both agreed with the plan. We will follow on clinical condition and cultures to further adjust medication if needed Thank you for this consultation will follow this patient along with you Time with Patient: Greater than 30
[2022-03-13] MEDS: SODIUM CHLORIDE 0.9% 1,000 ML IV SCH ×3 (03:07→23:29)
[2022-03-13] MEDS: traMADol 50 MG TAB PO PRN ×3 (03:33→21:48)
[2022-03-13] MEDS: tiZANidine 4 MG TAB PO SCH ×3 (06:33→21:48)
[2022-03-13 06:44] LABS: African American GFR (CKD) >90 (>60 ml/min/1.73 sqM); C Reactive Protein 2.7 mg/dL (<1.0); Non-African American GFR(CKD) 83 (>60 ml/min/1.73 sqM)
[2022-03-13 07:20] LABS: Glucose,Whole Blood 177 mg/dL (70-110)
[2022-03-13] MEDS: ASPIRIN 81 MG PO SCH (08:08)
[2022-03-13] MEDS: INSULIN ASPART (NovoLOG) 100 UNIT/ML VIAL SQ SCH ×4 (08:09→20:25)
[2022-03-13] MEDS: FOLIC ACID 1 MG TAB PO SCH (08:10)
[2022-03-13] MEDS: carvediloL 6.25 MG TAB PO SCH ×2 (08:10→17:51)
[2022-03-13] MEDS: ATORVASTATIN 10 MG TAB PO SCH (08:10)
--- NOTE | 2022-03-13 08:58 | P.PN ---
Progress Note - Text Progress Note Date: 03/13/22 Orthopedic spine: History of present illness: Patient is a very pleasant 81-year-old male who is seen and examined at bedside for follow-up evaluation in regards to his lumbar spine. Recent lumbar MRI imaging showed evidence of likely discitis at L2-3. He was admitted for further treatment and evaluation with IV antibiotics. He is being seen by Dr. Pendleton in infectious disease. Patient has been experiencing lumbosacral pain over the past 3 weeks. He experiences pain at the lumbosacral junction and not higher in his lumbar spine. He denies any lower extremity weakness or radiculopathy bilaterally. He has remained afebrile. He does not have an elevated white count. After being seen and examined yesterday, infectious disease currently discontinued IV antibiotic medication as they have requested interventional radiology aspirate to the area of L2-3 with the fluid to be sent for Gram stain and culture. Antibiotic medication was currently discontinued to increase the yield of the culture and Gram stain. Blood cultures have come back positive for gram-positive bacilli and gram-positive cocci. Patient currently denies any lower extremity weakness or radiculopathy bilaterally. Patient is being seen and examined by medicine for his other multiple medical diagnoses including coronary artery disease with history of CABG, diabetes mellitus, hyperlipidemia, hypertension, and recent multiple urinary tract infections. Physical exam: Patient is awake, alert, and oriented 3 Vital signs stable Good chest excursion with deep inspiration and expiration Examination of lumbar spine reveals skin is intact with no abrasions, lacerations, or bruises; no erythema, purulence or signs of infection No significant pain with palpation over the lumbar and lumbosacral spine Dorsiflexion, plantarflexion, and extensor hallucis longus positive sustained bilaterally Lower extremity strength 5/5 bilaterally Patellar reflex 2+ bilaterally and Achilles reflexes 2+ bilaterally No lower extremity hyperreflexia bilaterally Straight leg test negative bilateral lower extremities Negative Lasegue's test bilaterally No signs or symptoms of DVT; no calf pain No pain with internal and external rotation of the hips bilaterally Neurovascularly intact Pertinent studies: Blood culture finalized on 03/12/2022: Gram-positive bacilli Blood culture finalized on 03/13/2022: Gram-positive cocci MRI of the lumbar spine taken on 03/11/2022: L2-3 increased signal on T2 images with edema in the L2 and L3 vertebral bodies with increased fluid signal in the disc that is consistent with discitis and possible osteomyelitis; no evidence of fracture; multilevel spondylitic changes in all no significant spinal stenosis X-rays of the lumbosacral spine taken on 02/19/2022: T12-S1 significant degenerative disc disease throughout the lumbar spine with anterior ossific spurring; no spondylolisthesis; evidence of endplate bony change at L2-3; no obvious compression fracture deformity; degenerative scoliosis Assessment: Acute lumbosacral pain L2-3 likely discitis possible osteomyelitis T12-S1 significant degenerative disc disease Degenerative scoliosis Lumbar spondylosis Positive blood cultures for gram-positive bacilli and gram-positive cocci Recent multiple urinary tract infections Coronary artery disease with history of CABG Diabetes mellitus Hyperlipidemia Hypertension Plan: 1. Patient is currently being evaluated for likely discitis at L2-3. Patient has been experiencing acute lumbosacral pain over the past 3 weeks. Over this course of time he has remained afebrile. He does not have an elevated white count since his admission to the hospital. Blood cultures have come back positive for gram-positive bacilli and gram-positive cocci. He is currently being seen and examined by infectious disease. Antibiotic medications are currently on hold as consultation has been placed with interventional radiology for aspiration at the L2-3 and infectious is diseases hoping to obtain a higher yield for Gram stain and culture. We did discuss antibiotic medications will be managed by infectious disease. Patient is not currently dispensing lower extremity weakness or radiculopathy bilaterally. We're not currently planning for acute surgical intervention in regards to his lumbar spine. We did discuss in detail he should continue conservative treatment with infectious disease and medicine. Patient feels a significant plan of care. Patient does state he would like to avoid surgical intervention in regards to his lumbar spine if he is able to do so. 2. Patient will continue to be seen and examined by medicine and infectious disease.
--- NOTE | 2022-03-13 11:26 | CT ---
EXAMINATION TYPE: CT guided aspiration DATE OF EXAM: 03/13/2022 COMPARISON: MRI 03/11/2022 HISTORY: Discitis CT DLP: 1344 mGycm The procedure is discussed with the patient, the risks, complications, benefits and alternatives, wer e discussed and any questions were answered. Informed consent was obtained. The patient is placed p dayana on the CT table, prepped and draped in the usual sterile fashion. Utilizing a 22-gauge Chiba needle access into the L2-L3 disc interspace was achieved with small aspir ate obtained. Pathology sent to pathology for analysis. All elements of maximal barrier technique w ere utilized. The patient remained stable throughout the procedure with no immediate postprocedural complication. IMPRESSION: 1. Successful CT guided fine needle aspiration of L2-L3 disc interspace.
[2022-03-13] MEDS ORDERED: VANCOMYCIN IV PER PHARMACY 1 EACH MISC MISCELLANE PRN (11:27)
[2022-03-13 11:56] LABS: Glucose,Whole Blood 171 mg/dL (70-110)
[2022-03-13] MEDS ORDERED: VANCOMYCIN 1,500 MG in SODIUM CHLORIDE 0.9% 250 ML IVPB SCH (12:00)
[2022-03-13] MEDS ORDERED: hydrALAZINE HCL 20 MG/ML 1 ML VIAL IVP PRN (13:28)
--- NOTE | 2022-03-13 13:29 | P.PN ---
Subjective Progress Note Date: 03/13/22 CC: Back pain 03/13: Mr. Khan was seen and examined. He underwent bone biopsy this morning. Complains of pain at biopsy site. Denies fevers or chills. No focal neurological deficits. Vitals: Reviewed General: No acute distress HEENT: Mucous membranes moist neck supple Cardiovascular: RRR, S1-S2 Lungs: Breath sounds equal and clear to auscultation bilaterally. No wheezing, rhonchi or rales Abdomen: Soft, nontender, nondistended Extremities: No lower extremity edema Neuro: No focal deficits Laboratory data reviewed Assessment and plan Assessment and plan 1. Suspected discitis/osteomyelitis of lumbar spine Antibiotics were held briefly for bone biopsy of lumbar spine that was done today. Resume vancomycin. ID on the case and recommendations appreciated. Pain is not controlled today therefore morphine was added along with his tramadol. PT/OT. 2. Gram-positive bacteremia Blood cultures with gram-positive cocci and bacilli. Obtain echocardiogram to rule out endocarditis. Continue with IV vancomycin. Await susceptibilities. Repeat blood cultures to assure clearance. 2. DM 2 Goal blood sugar is 140-180 in the hospital. Continue sliding scale insulin. W e will adjust insulin as needed. 3. Hypertension Elevated, suspect component of pain adding to elevation. Amlodipine 5 mg daily. DC clonidine add hydralazine as needed. 4. CAD status post CABG Continue aspirin, statin and beta deon 5. BPH Continue Flomax Disposition: Anticipate hospitalization for at least another 48 hours Objective - Vital Signs Vital signs: Vital Signs Temp 98 F 03/13/22 11:38 Pulse 81 03/13/22 11:38 Resp 18 03/13/22 11:38 BP 160/79 03/13/22 11:38 Pulse Ox 94 L 03/13/22 11:38 FiO2 Intake & Output 03/12/22 03/13/22 03/13/22 18:59 06:59 18:59 Intake Total 900 Balance 900 Intake: Intake, IV Titration 900 Amount Sodium Chloride 0.9% 1, 900 000 ml @ 75 mls/hr IV . [id number] [facility] Rx#:[id number] Other: Voiding Method Toilet # Voids 3 3 - Labs CBC & Chem 7: 03/11/22 19:20 03/13/22 05:49 Labs: Abnormal Lab Results - Last 24 Hours (Table) 03/12/22 03/12/22 03/13/22 Range/Units 17:38 20:42 05:49 ESR (0-20) mm/Hr POC Glucose (mg/dL) 175 H 194 H (70-110) mg/dL C-Reactive Protein 2.7 H (<1.0) mg/dL 03/13/22 03/13/22 03/13/22 Range/Units 05:49 07:19 11:54 ESR 33 H (0-20) mm/Hr POC Glucose (mg/dL) 177 H 171 H (70-110) mg/dL C-Reactive Protein (<1.0) mg/dL Microbiology - Last 24 Hours (Table) 03/11/22 19:20 Blood Culture - Final Blood 03/11/22 19:35 Blood Culture Gram Stain - Preliminary Blood 03/11/22 19:35 Blood Culture - Final Blood
[2022-03-13] MEDS: amLODIPine 5 MG TAB PO SCH (13:35)
[2022-03-13] MEDS: MORPHINE SULFATE 2 MG/ML SYRINGE IVP PRN ×3 (13:39→23:29)
--- NOTE | 2022-03-13 17:20 | CA ---
Transthoracic Echo Report Name: Markus Khan Age: 81 Gender: M : 1940 Exam Date: 03/13/2022 13:50 Exam Location: [facility] Ht (in): 71 Wt (lb): 165 Ordering Physician: Tosin Mccann MD Attending/Referring Phys: Acetylene Torch Solderer Priscila Cary RDCS Procedure CPT: Indications: rule out endocarditis Cardiac Hx: Cabg Technical Quality: Good Contrast 1: Definity Total Dose (mL): Contrast 2: Total Dose (mL): MEASUREMENTS (Male / Female) Normal Values 2D ECHO LV Diastolic Diameter PLAX 4.2 cm 4.2 - 5.9 / 3.9 - 5.3 cm LV Systolic Diameter PLAX 3.4 cm IVS Diastolic Thickness 1.2 cm 0.6 - 1.0 / 0.6 - 0.9 cm LVPW Diastolic Thickness 1.4 cm 0.6 - 1.0 / 0.6 - 0.9 cm LV Relative Wall Thickness 0.6 RV Internal Dim ED PLAX 3.0 cm M-MODE Aortic Root Diameter MM 3.7 cm LA Systolic Diameter MM 4.9 cm LA Ao Ratio MM 1.3 MV E Point Septal Separation 1.6 cm AV Cusp Separation MM 2.2 cm DOPPLER AV Peak Velocity 72.1 cm/s AV Peak Gradient 2.1 mmHg AI Peak Velocity 143.3 cm/s AI Peak Gradient 8.2 mmHg AI Pressure Half Time 442.4 ms MV Area PHT 5.7 cm??? MR Peak Velocity 188.6 cm/s MR Peak Gradient 14.2 mmHg Mitral E Point Velocity 79.8 cm/s Mitral A Point Velocity 45.5 cm/s Mitral E to A Ratio 1.8 MV Deceleration Time 133.3 ms TR Peak Velocity 318.0 cm/s TR Peak Gradient 40.4 mmHg Right Ventricular Systolic Press 44.2 mmHg PV Peak Velocity 112.4 cm/s PV Peak Gradient 5.0 mmHg PI Peak Gradient 17.0 mmHg FINDINGS Left Ventricle Mild concentric LVH.left ventricular cavity size normal. Left ventricular ejection fraction is estimated at 45-50 %. Right Ventricle The right ventricle is normal in size and function. Right Atrium The right atrium is normal in size. Left Atrium The left atrium is normal in size. Mitral Valve Structurally normal mitral valve without significant stenosis or prolapse. There is mild mitral regurgitation. Aortic Valve Structurally normal aortic valve without significant sclerosis or stenosis. There is mild aortic regurgitation. Possible vegetation or fibroblastoma on the aortic valve leaflet. Tricuspid Valve Structurally normal tricuspid valve without significant stenosis. Pulmonary artery systolic pressure is normal. Trace tricuspid regurgitation. Pulmonic Valve Structurally normal pulmonic valve without significant stenosis. There is mild pulmonic regurgitation. Pericardium Normal pericardium without effusion. Aorta Normal aortic root dimension. CONCLUSIONS Mild LV systolic dysfunction Previewed by: Dr. Adam Scott MD (Electronically Signed) Final Date: 13 March 2022 17:19
[2022-03-13 17:32] LABS: Glucose,Whole Blood 136 mg/dL (70-110)
[2022-03-13 20:13] LABS: Glucose,Whole Blood 230 mg/dL (70-110)
[2022-03-13] MEDS: AMPICILLIN 2,000 MG in SODIUM CHLORIDE 0.9% 100 ML IVPB SCH (23:29)
[2022-03-14] MEDS: MORPHINE SULFATE 2 MG/ML SYRINGE IVP PRN ×3 (03:13→21:38)
[2022-03-14] MEDS: AMPICILLIN 2,000 MG in SODIUM CHLORIDE 0.9% 100 ML IVPB SCH ×5 (03:56→19:13)
[2022-03-14] MEDS: tiZANidine 4 MG TAB PO SCH ×3 (05:22→21:40)
[2022-03-14] MEDS: traMADol 50 MG TAB PO PRN ×3 (05:22→21:39)
[2022-03-14 07:28] LABS: Glucose,Whole Blood 185 mg/dL (70-110)
[2022-03-14] MEDS: FOLIC ACID 1 MG TAB PO SCH (07:54)
[2022-03-14] MEDS: carvediloL 6.25 MG TAB PO SCH ×2 (07:54→17:34)
[2022-03-14] MEDS: FINASTERIDE 5 MG TAB PO SCH (07:54)
[2022-03-14] MEDS: amLODIPine 5 MG TAB PO SCH (07:55)
[2022-03-14] MEDS: ASPIRIN 81 MG PO SCH (07:55)
[2022-03-14] MEDS: ATORVASTATIN 10 MG TAB PO SCH (07:55)
[2022-03-14] MEDS: INSULIN ASPART (NovoLOG) 100 UNIT/ML VIAL SQ SCH ×4 (07:55→20:32)
[2022-03-14 08:04] LABS: African American GFR (CKD) >90 (>60 ml/min/1.73 sqM); Anion Gap 8 mmol/L; Blood Urea Nitrogen 17 mg/dL (9-20); Calcium 8.7 mg/dL (8.4-10.2); Carbon Dioxide 26 mmol/L (22-30); Chloride 101 mmol/L (98-107); Glucose 200 mg/dL (74-99); Non-African American GFR(CKD) 83 (>60 ml/min/1.73 sqM); Potassium 3.9 mmol/L (3.5-5.1); Sodium 135 mmol/L (137-145)
[2022-03-14 10:45] LABS: Basophils # (A) 0.03 X 10*3/uL (0.00-0.10); Basophils % (A) 0.4 %; Eosinophils # (A) 0.08 X 10*3/uL (0.04-0.35); HCT 39.8 % (39.6-50.0); HGB 12.5 g/dL (13.0-17.0); Immature Grans, Automated 0.4 %; Lymphocytes # (A) 0.95 X 10*3/uL (0.90-5.00); Lymphocytes % (A) 11.7 %; MCH 28.3 pg (27.0-32.0); MCHC 31.4 g/dL (32.0-37.0); MCV 90.2 fL (80.0-97.0); Mean Platelet Volume 9.9 fL (9.5-12.2); Monocytes % (A) 9.9 %; NRBC Per 100 WBC 0 /100 WBCS (0.0-0.0); Neutrophils # (A) 6.22 X 10*3/uL (1.80-7.70); Neutrophils % (A) 76.6 %; Platelet Count 211 X 10*3/uL (140-440); RBC 4.41 X 10*6/uL (4.40-5.60); RDW 14.9 % (11.5-14.5); WBC 8.11 X 10*3/uL (4.50-10.00)
[2022-03-14] MEDS ORDERED: polyethylene glycoL 3350 17 GM POWD.PACK PO PRN (11:27)
[2022-03-14] MEDS ORDERED: MAGNESIUM HYDROXIDE 2,400 MG/10 ML CUP PO PRN (11:28)
[2022-03-14 11:33] LABS: Glucose,Whole Blood 154 mg/dL (70-110)
--- NOTE | 2022-03-14 12:15 | P.PN ---
Subjective Progress Note Date: 03/13/22 Principal diagnosis: Bacteremia and discitis Patient is a 81 year old male presenting to the hospital with lower back pain and abnormal MRI done in the outpatient MRI suggestive of L2 and at the vertebral bodies discitis and possible osteomyelitis in this patient who is status post IR aspirate of that area and subsequently blood cultures came back positive with gram-positive cocci. On today's evaluation that is 03/13/2022, patient denies having any fever or any chills, the patient is a breathing comfortably, the patient denies having any chest pain or shortness of breath or cough still complaining of lower back pain with some improvement with the pain medication, denies nausea no vomiting no abdominal pain or diarrhea Objective - Vital Signs Vital signs: Vital Signs Temp 98 F 03/13/22 11:38 Pulse 81 03/13/22 11:38 Resp 18 03/13/22 11:38 BP 160/79 03/13/22 11:38 Pulse Ox 94 L 03/13/22 11:38 FiO2 Intake & Output 03/12/22 03/13/22 03/13/22 18:59 06:59 18:59 Intake Total 900 Balance 900 Intake: Intake, IV Titration 900 Amount Sodium Chloride 0.9% 1, 900 000 ml @ 75 mls/hr IV . [id number] [facility] Rx#:[id number] Other: Voiding Method Toilet # Voids 3 3 - Exam GENERAL DESCRIPTION: An elderly male lying in bed in no distress RESPIRATORY SYSTEM: Unlabored breathing , decreased breath sounds at bases HEART: S1 S2 regular rate and rhythm , ABDOMEN: Soft , no tenderness EXTREMITIES: No edema feet - Labs CBC & Chem 7: 03/14/22 07:05 03/14/22 07:05 Labs: Abnormal Lab Results - Last 24 Hours (Table) 03/12/22 03/12/22 03/13/22 Range/Units 17:38 20:42 05:49 ESR (0-20) mm/Hr POC Glucose (mg/dL) 175 H 194 H (70-110) mg/dL C-Reactive Protein 2.7 H (<1.0) mg/dL 03/13/22 03/13/22 03/13/22 Range/Units 05:49 07:19 11:54 ESR 33 H (0-20) mm/Hr POC Glucose (mg/dL) 177 H 171 H (70-110) mg/dL C-Reactive Protein (<1.0) mg/dL Microbiology - Last 24 Hours (Table) 03/11/22 19:20 Blood Culture - Final Blood 03/11/22 19:35 Blood Culture Gram Stain - Preliminary Blood 03/11/22 19:35 Blood Culture - Final Blood Assessment and Plan (1) Discitis Current Visit: Yes Status: Acute Code(s): M46.40 - DISCITIS, UNSPECIFIED, SITE UNSPECIFIED SNOMED Code(s): 5068984 (2) Bacteremia Current Visit: No Status: Acute Code(s): R78.81 - BACTEREMIA SNOMED Code(s): 6977350 Plan: 1patient been complaining of lower back pain for 3 weeks in this patient with no fever no tenderness no white count however did have abnormal MRI of the lumbosacral spine underlying discitis not entirely excluded. 2the patient is status post IR aspirate of the affected area and the fluid has been sent for gram stain and culture. 3patient now have evidence of gram-positive bacteremia the patient was started on vancomycin subsequently reported by pharmacy likely enterococcus with no resistance genes, antibiotic was switched to ampicillin blood culture has been repeated to document clearance of bacteremia Time with Patient: Less than 30
--- NOTE | 2022-03-14 12:16 | P.PN ---
Subjective Progress Note Date: 03/14/22 Principal diagnosis: Bacteremia and discitis Patient is a 81 year old male presenting to the hospital with lower back pain and abnormal MRI done in the outpatient MRI suggestive of L2 and at the vertebral bodies discitis and possible osteomyelitis in this patient who is status post IR aspirate of that area and subsequently blood cultures came back positive with gram-positive cocci. On today's evaluation that is 03/14/2022, patient remains to be afebrile, the patient is a breathing comfortably on room air, the patient denies having any chest pain or shortness of breath or cough, the patient is still complaining of lower back pain with some improvement with the pain medication, the patient denies nausea no vomiting no abdominal pain or diarrhea Objective - Vital Signs Vital signs: Vital Signs Temp 98.2 F 03/14/22 04:05 Pulse 89 03/14/22 04:05 Resp 18 03/14/22 04:05 BP 151/78 03/14/22 04:05 Pulse Ox 97 03/14/22 04:05 FiO2 Intake & Output 03/13/22 03/14/22 03/14/22 18:59 06:59 18:59 Intake Total 550 1580 Balance 550 1580 Intake: Intake, IV Titration 550 1100 Amount Ampicillin 2,000 mg In 200 Sodium Chloride 0.9% 100 ml @ 200 mls/hr IVPB Q4HR [facility] Rx#:[id number] Sodium Chloride 0.9% 1, 300 900 000 ml @ 75 mls/hr IV . [id number] [facility] Rx#:[id number] Vancomycin 1,500 mg In 250 Sodium Chloride 0.9% 250 ml @ 125 mls/hr IVPB Q12H [facility] Rx#:[id number] Oral 480 Other: Voiding Method Toilet Toilet # Voids 3 3 - Exam GENERAL DESCRIPTION: An elderly male lying in bed in no distress RESPIRATORY SYSTEM: Unlabored breathing , decreased breath sounds at bases HEART: S1 S2 regular rate and rhythm , ABDOMEN: Soft , no tenderness EXTREMITIES: No edema feet - Labs CBC & Chem 7: 03/14/22 07:05 03/14/22 07:05 Labs: Abnormal Lab Results - Last 24 Hours (Table) 03/13/22 03/13/22 03/13/22 Range/Units 05:49 11:54 17:29 ESR 33 H (0-20) mm/Hr Sodium (137-145) mmol/L Glucose (74-99) mg/dL POC Glucose (mg/dL) 171 H 136 H (70-110) mg/dL 03/13/22 03/14/22 03/14/22 Range/Units 20:11 07:05 07:18 ESR (0-20) mm/Hr Sodium 135 L (137-145) mmol/L Glucose 200 H (74-99) mg/dL POC Glucose (mg/dL) 230 H 185 H (70-110) mg/dL Microbiology - Last 24 Hours (Table) 03/11/22 19:35 Blood Culture Gram Stain - Preliminary Blood Blood Culture - Preliminary Enterococcus faecalis 03/11/22 19:20 Blood Culture Gram Stain - Preliminary Blood Blood Culture - Preliminary Group D Enterococcus 03/13/22 11:15 Fungal Culture - Preliminary Aspirate 03/13/22 11:15 Anaerobic Culture - Preliminary Aspirate 03/13/22 11:15 Body Fluid Culture - Preliminary Aspirate 03/13/22 11:15 Acid Fast Bacilli Culture - Preliminary Aspirate 03/13/22 05:49 Blood Culture - Final Blood 03/11/22 19:20 Blood Culture - Final Blood Assessment and Plan (1) Discitis Current Visit: Yes Status: Acute Code(s): M46.40 - DISCITIS, UNSPECIFIED, SITE UNSPECIFIED SNOMED Code(s): 2235135 (2) Bacteremia Current Visit: No Status: Acute Code(s): R78.81 - BACTEREMIA SNOMED Code(s): 1846540 Plan: 1patient been complaining of lower back pain for 3 weeks in this patient with no fever no tenderness no white count however did have abnormal MRI of the lumbosacral spine underlying discitis not entirely excluded. 2the patient is status post IR aspirate of the affected area and the fluid has been sent for gram stain and culture. 3patient Enterococcus faecalis bacteremia likely the source of this L2-3 discitis and Osteomyelitis, patient to continue with ampicillin we will wait for the blood cultures to be negative before placing a PICC line and will need at least 6-8 weeks of IV antibiotic on discharge case assistant to start working on it discussed with Winston Time with Patient: Less than 30
[2022-03-14] MEDS: SODIUM CHLORIDE 0.9% 1,000 ML IV SCH (14:14)
--- NOTE | 2022-03-14 15:26 | P.PN ---
Subjective Progress Note Date: 03/14/22 Patient this morning is complaining of constipation. I started patient on aggressive bowel regimen. He otherwise denies any fever chills nausea vomiting. Objective - Vital Signs Vital signs: Vital Signs Temp 97.8 F 03/14/22 12:23 Pulse 76 03/14/22 12:23 Resp 20 03/14/22 12:23 BP 138/75 03/14/22 12:23 Pulse Ox 96 03/14/22 12:23 FiO2 Intake & Output 03/13/22 03/14/22 03/14/22 18:59 06:59 18:59 Intake Total 550 1580 Balance 550 1580 Intake: Intake, IV Titration 550 1100 Amount Ampicillin 2,000 mg In 200 Sodium Chloride 0.9% 100 ml @ 200 mls/hr IVPB Q4HR [facility] Rx#:[id number] Sodium Chloride 0.9% 1, 300 900 000 ml @ 75 mls/hr IV . 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 Psych - Calm and cooperative - Labs CBC & Chem 7: 03/14/22 07:05 03/14/22 07:05 Labs: Abnormal Lab Results - Last 24 Hours (Table) 03/13/22 03/13/22 03/14/22 Range/Units 17:29 20:11 07:05 Hgb (13.0-17.0) g/dL MCHC (32.0-37.0) g/dL RDW (11.5-14.5) % Sodium 135 L (137-145) mmol/L Glucose 200 H (74-99) mg/dL POC Glucose (mg/dL) 136 H 230 H (70-110) mg/dL 03/14/22 03/14/22 03/14/22 Range/Units 07:05 07:18 11:32 Hgb 12.5 L (13.0-17.0) g/dL MCHC 31.4 L (32.0-37.0) g/dL RDW 14.9 H (11.5-14.5) % Sodium (137-145) mmol/L Glucose (74-99) mg/dL POC Glucose (mg/dL) 185 H 154 H (70-110) mg/dL Microbiology - Last 24 Hours (Table) 03/13/22 12:00 Blood Culture - Preliminary Blood No Growth after 24 hours 03/13/22 05:49 Blood Culture Gram Stain - Preliminary Blood 03/11/22 19:35 Blood Culture Gram Stain - Preliminary Blood Blood Culture - Preliminary Enterococcus faecalis 03/11/22 19:20 Blood Culture Gram Stain - Preliminary Blood Blood Culture - Preliminary Group D Enterococcus 03/13/22 11:15 Fungal Culture - Preliminary Aspirate 03/13/22 11:15 Anaerobic Culture - Preliminary Aspirate 03/13/22 11:15 Body Fluid Culture - Preliminary Aspirate 03/13/22 11:15 Acid Fast Bacilli Culture - Preliminary Aspirate 03/13/22 05:49 Blood Culture - Final Blood Assessment and Plan Assessment: 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
[2022-03-14 17:05] VITALS: BMI 23.6
[2022-03-14 17:11] LABS: Glucose,Whole Blood 138 mg/dL (70-110)
[2022-03-14 20:19] LABS: Glucose,Whole Blood 241 mg/dL (70-110)
[2022-03-15] MEDS: AMPICILLIN 2,000 MG in SODIUM CHLORIDE 0.9% 100 ML IVPB SCH ×6 (00:43→22:19)
[2022-03-15] MEDS: MORPHINE SULFATE 2 MG/ML SYRINGE IVP PRN ×2 (03:56→22:26)
[2022-03-15] MEDS: traMADol 50 MG TAB PO PRN ×3 (06:05→22:19)
[2022-03-15] MEDS: tiZANidine 4 MG TAB PO SCH ×3 (06:06→22:20)
[2022-03-15] MEDS: SODIUM CHLORIDE 0.9% 1,000 ML IV SCH ×2 (06:06→22:20)
[2022-03-15 07:08] LABS: Glucose,Whole Blood 203 mg/dL (70-110)
[2022-03-15 07:30] LABS: Basophils % (A) 0 %; Eosinophils # (A) 0.1 k/uL (0-0.7); Eosinophils % (A) 2 %; HCT 39.7 % (39.0-53.0); HGB 12.5 gm/dL (13.0-17.5); Lymphocytes # (A) 0.8 k/uL (1.0-4.8); Lymphocytes % (A) 15 %; MCHC 31.4 g/dL (31.0-37.0); MCV 89.2 fL (80.0-100.0); Mean Platelet Volume 8.5; Monocytes # (A) 0.6 k/uL (0-1.0); Monocytes % (A) 11 %; Neutrophils % (A) 71 %; Platelet Count 208 k/uL (150-450); RBC 4.44 m/uL (4.30-5.90); RDW 14.9 % (11.5-15.5); WBC 5.7 k/uL (3.8-10.6)
[2022-03-15 07:37] LABS: African American GFR (CKD) >90 (>60 ml/min/1.73 sqM); Anion Gap 10 mmol/L; Blood Urea Nitrogen 13 mg/dL (9-20); Calcium 8.5 mg/dL (8.4-10.2); Carbon Dioxide 26 mmol/L (22-30); Chloride 98 mmol/L (98-107); Glucose 184 mg/dL (74-99); Non-African American GFR(CKD) 89 (>60 ml/min/1.73 sqM); Potassium 3.7 mmol/L (3.5-5.1); Sodium 134 mmol/L (137-145)
[2022-03-15] MEDS: amLODIPine 5 MG TAB PO SCH (10:11)
[2022-03-15] MEDS: ASPIRIN 81 MG PO SCH (10:11)
[2022-03-15] MEDS: FINASTERIDE 5 MG TAB PO SCH (10:11)
[2022-03-15] MEDS: INSULIN ASPART (NovoLOG) 100 UNIT/ML VIAL SQ SCH ×4 (10:12→22:19)
[2022-03-15] MEDS: FOLIC ACID 1 MG TAB PO SCH (10:12)
[2022-03-15] MEDS: ATORVASTATIN 10 MG TAB PO SCH (10:12)
[2022-03-15] MEDS: carvediloL 6.25 MG TAB PO SCH ×2 (10:12→16:18)
[2022-03-15 11:15] LABS: Glucose,Whole Blood 305 mg/dL (70-110)
--- NOTE | 2022-03-15 13:11 | CDI ---
Documentation Clarification Form Date: 03/15/2022 12:48:27 PM From: Lisa Bella RN, CCDS Admit Date: 03/11/2022 08:04:00 PM Patient Name: Markus Khan Visit Number: [id number] Discharge Date: ATTENTION: The Clinical Documentation Specialists (CDI) and [facility] Coding Staff appreciate your assistance in clarifying documentation. Please respond to the clarification below the line at the bottom and electronically sign. The CDI & [facility] Coding staff will review the response and follow-up if needed. Please note: Queries are made part of the Legal Health Record. If you have any questions, please contact the author of this message via ITS. Dr. Kristal Pendleton Osteomyelitis is documented in the the consult on 03/12/22 and subsequent progress notes. Additional clarification regarding the cause and acuity of the osteomyelitis is requested. History/Risk Factors: Discitis, Coronary artery disease, Diabetes Mellitus, Hyperlipidemia, Hypertension, VRE-urine Clinical Indicators: 81-year-old male with complaints lower back pain onging for the last 3 weeks. MRI of lumbar sacral spine completed on 03/11/22 read as edema and L2-3 vertebral bodies and increased fluid signal in the disc consistent with discitis and possible osteomyelitis. 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
--- NOTE | 2022-03-15 13:58 | P.PN ---
Subjective Progress Note Date: 03/15/22 Patient denies any acute complaints. He said that he had a bowel movement yesterday. His cultures from 03/13 and 03/14 are still negative. Objective - Vital Signs Vital signs: Vital Signs Temp 98 F 03/15/22 11:14 Pulse 83 03/15/22 11:14 Resp 17 03/15/22 11:14 BP 151/81 03/15/22 11:14 Pulse Ox 99 03/15/22 11:14 FiO2 Intake & Output 03/14/22 03/15/22 03/15/22 18:59 06:59 18:59 Intake Total 900 800 Balance 900 800 Weight 74.843 kg Intake: Intake, IV Titration 900 200 Amount Ampicillin 2,000 mg In 200 Sodium Chloride 0.9% 100 ml @ 200 mls/hr IVPB Q4HR [facility] Rx#:[id number] Sodium Chloride 0.9% 1, 900 000 ml @ 75 mls/hr IV . [id number] [facility] Rx#:[id number] Oral 600 Other: Voiding Method Toilet Toilet # Voids 3 - Labs CBC & Chem 7: 03/15/22 06:44 03/15/22 06:44 Labs: Abnormal Lab Results - Last 24 Hours (Table) 03/14/22 03/14/22 03/15/22 Range/Units 17:03 20:17 06:44 Hgb 12.5 L (13.0-17.5) gm/dL Lymphocytes # 0.8 L (1.0-4.8) k/uL Sodium (137-145) mmol/L Glucose (74-99) mg/dL POC Glucose (mg/dL) 138 H 241 H (70-110) mg/dL 03/15/22 03/15/22 03/15/22 Range/Units 06:44 07:05 11:14 Hgb (13.0-17.5) gm/dL Lymphocytes # (1.0-4.8) k/uL Sodium 134 L (137-145) mmol/L Glucose 184 H (74-99) mg/dL POC Glucose (mg/dL) 203 H 305 H (70-110) mg/dL Microbiology - Last 24 Hours (Table) 03/13/22 11:15 Gram Stain - Preliminary Aspirate Body Fluid Culture - Preliminary 03/14/22 07:05 Blood Culture - Preliminary Blood No Growth after 24 hours 03/13/22 11:15 Acid Fast Bacilli Smear - Final Aspirate Acid Fast Bacilli Culture - Preliminary 03/13/22 12:00 Blood Culture - Preliminary Blood No Growth after 24 hours 03/13/22 05:49 Blood Culture Gram Stain - Preliminary Blood Assessment and Plan Assessment: 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 Blood cultures from 03/13/2022 and 03/15/2020 are negative to date Diabetes mellitus type 2 Sliding-scale insulin Hypertension Resume amlodipine and hydralazine as needed Coronary artery disease status post CABG Resume aspirin and statin and beta deon BPH Resume Flomax Anticipated discharge: In the next 24-48 hours. Patient will be discharged home. He has great support at home for antibiotic home infusion.
[2022-03-15 17:08] LABS: Glucose,Whole Blood 87 mg/dL (70-110)
[2022-03-15 20:35] LABS: Glucose,Whole Blood 192 mg/dL (70-110)
[2022-03-16] MEDS: AMPICILLIN 2,000 MG in SODIUM CHLORIDE 0.9% 100 ML IVPB SCH ×7 (00:37→23:52)
[2022-03-16] MEDS: MORPHINE SULFATE 2 MG/ML SYRINGE IVP PRN ×3 (04:22→23:32)
[2022-03-16] MEDS: traMADol 50 MG TAB PO PRN ×3 (05:42→21:07)
[2022-03-16] MEDS: tiZANidine 4 MG TAB PO SCH ×4 (05:42→21:29)
[2022-03-16 07:06] LABS: Glucose,Whole Blood 218 mg/dL (70-110)
[2022-03-16] MEDS: SODIUM CHLORIDE 0.9% 1,000 ML IV SCH ×2 (08:26→20:32)
[2022-03-16] MEDS: ASPIRIN 81 MG PO SCH (08:27)
[2022-03-16] MEDS: FOLIC ACID 1 MG TAB PO SCH (08:27)
[2022-03-16] MEDS: FINASTERIDE 5 MG TAB PO SCH (08:27)
[2022-03-16] MEDS: ATORVASTATIN 10 MG TAB PO SCH (08:27)
[2022-03-16] MEDS: carvediloL 6.25 MG TAB PO SCH ×2 (08:27→16:34)
[2022-03-16] MEDS: amLODIPine 5 MG TAB PO SCH (08:27)
[2022-03-16] MEDS: INSULIN ASPART (NovoLOG) 100 UNIT/ML VIAL SQ SCH ×4 (08:28→21:06)
[2022-03-16 11:11] LABS: Glucose,Whole Blood 217 mg/dL (70-110)
--- NOTE | 2022-03-16 11:34 | P.PN ---
Subjective Progress Note Date: 03/16/22 Patient denies any acute complaints. No acute issues overnight. Patient blood culture from 03/13/2022 came back positive. Cardiology consult regarding YVETTE is pending. Objective - Vital Signs Vital signs: Vital Signs Temp 97.8 F 03/16/22 11:10 Pulse 78 03/16/22 11:10 Resp 17 03/16/22 11:10 BP 143/73 03/16/22 11:10 Pulse Ox 97 03/16/22 11:10 FiO2 Intake & Output 03/15/22 03/16/22 03/16/22 18:59 06:59 18:59 Intake Total 1100 Balance 1100 Intake: Intake, IV Titration 1100 Amount Ampicillin 2,000 mg In 200 Sodium Chloride 0.9% 100 ml @ 200 mls/hr IVPB Q4HR [facility] Rx#:[id number] Sodium Chloride 0.9% 1, 900 000 ml @ 75 mls/hr IV . 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 - Calm and cooperative - Labs CBC & Chem 7: 03/15/22 06:44 03/15/22 06:44 Labs: Abnormal Lab Results - Last 24 Hours (Table) 03/15/22 03/16/22 03/16/22 Range/Units 20:33 07:05 11:09 POC Glucose (mg/dL) 192 H 218 H 217 H (70-110) mg/dL Microbiology - Last 24 Hours (Table) 03/13/22 11:15 Gram Stain - Preliminary Aspirate Body Fluid Culture - Preliminary 03/14/22 07:05 Blood Culture - Preliminary Blood No Growth after 48 hours 03/13/22 05:49 Blood Culture Gram Stain - Preliminary Blood Blood Culture - Preliminary Group D Enterococcus 03/13/22 12:00 Blood Culture - Preliminary Blood No Growth after 48 hours Assessment and Plan Assessment: 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 Cardiology consult placed with YVETTE which will likely be done tomorrow. Per ID well order for PICC line once blood cultures are negative. Blood cultures on 03/13/2022 is positive. Blood culture on 03/14/2022 is negative so far. Tomorrow morning at 9AM the culture from 03/14/2022 will be negative for 72 hours and then PICC line can be placed. Diabetes mellitus type 2 Sliding-scale insulin Hypertension Resume amlodipine and hydralazine as needed Coronary artery disease status post CABG Resume aspirin and statin and beta deon BPH Resume Flomax Anticipated discharge: In the next 24 if surveillance blood culture negative and YVETTE negative for endocarditis. Patient will be discharged home. He has great support at home for antibiotic home infusion.
--- NOTE | 2022-03-16 12:21 | P.CRDCN ---
History of Present Illness Consult date: 03/16/22 History of present illness: Patient is a known history of coronary artery disease status post CABG vessel initial surgery 30 years ago and again in 2017, diabetes, hypertension, hyperlipidemia. We have been consulted to perform a YVETTE to rule out endocarditis. Patient is a no 3 but pleasantly confused, and is a poor historian. Patient has been admitted for discitis. Patient denies chest pain, increased shortness of breath. He denies history of congestive heart failure. Recent echocardiogram shows a mildly decreased LV function with an EF of 45-50%. His repeat blood cultures are negative. obtain an EKG. Patient will undergo YVETTE tomorrow Review of Systems REVIEW OF SYSTEMS At the time of my exam: CONSTITUTIONAL: Denies fever or chills. EYES: Negative for vision changes ENT: Negative for hearing loss CARDIOVASCULAR: Denies chest pain, shortness of breath, diaphoresis, orthopnea, PND or palpitations. VASCULAR: Denies edema RESPIRATORY: Denies cough. GASTROINTESTINAL: Denies abdominal pain, diarrhea, constipation, nausea or vomiting. MUSCULOSKELETAL: Denies myalgias. NEUROLOGIC: Denies numbness, tingling, headache or weakness. ENDOCRINE: Denies fatigue, weight change, polydipsia or polyurina. GENITOURINARY: Denies burning, hematuria or urgency with micturation. HEMATOLOGIC: Denies history of anemia or bleeding. DERMATOLOGY: Denies rash or skin sores PSYCH: Negative for depression or hallucinations. Past Medical History Past Medical History: Coronary Artery Disease (CAD), Diabetes Mellitus, Hyperlipidemia, Hypertension, Syncope Additional Past Medical History / Comment(s): BPH History of Any Multi-Drug Resistant Organisms: VRE Date of last positivie culture/infection: 10/26/21 MDRO Source:: VRE URINE Past Surgical History: Coronary Bypass/CABG, Prostate Surgery, Tonsillectomy Additional Past Surgical History / Comment(s): Lip CA , CABG X2-PT STATES 30 YEARS AGO AND AGAIN 2017, Past Anesthesia/Blood Transfusion Reactions: No Reported Reaction Past Psychological History: No Psychological Hx Reported Additional Psychological History / Comment(s): Pt resides with his spouse. He is independent. Smoking Status: Former smoker Past Alcohol Use History: Daily Additional Past Alcohol Use History / Comment(s): Pt started smoking in 1960 and quit in the . He has a shot iof alcohol a day Past Drug Use History: None Reported - Past Family History Mother Family Medical History: No Reported History family Family Medical History: No Reported History Medications and Allergies Home Medications Medication Instructions Recorded Confirmed Type Aspirin [Adult Low Dose Aspirin EC] 81 mg PO DAILY 09/05/21 03/12/22 History Finasteride [Proscar] 5 mg PO DAILY 09/05/21 03/12/22 History Folic Acid 0.8 mg PO DAILY 09/05/21 03/12/22 History Lovastatin [Mevacor] 20 mg PO DAILY 09/05/21 03/12/22 History Pioglitazone [Actos] 45 mg PO DAILY 09/05/21 03/12/22 History carvediloL [Coreg] 6.25 mg PO BID 09/05/21 03/12/22 History metFORMIN HCL [Glucophage] 1,000 mg PO BID 09/05/21 03/12/22 History Furosemide [Lasix] 20 mg PO BID 03/12/22 03/12/22 History tiZANidine [Zanaflex] 4 mg PO DAILY 03/12/22 03/12/22 History traMADol HCL 50 mg PO Q12H PRN 03/12/22 03/12/22 History Allergies Allergy/AdvReac Type Severity Reaction Status Date / Time No Known Allergies Allergy Verified 03/11/22 18:33 Physical Exam Vitals: Vital Signs Temp Pulse Resp BP Pulse Ox 03/16/22 11:10 97.8 F 78 17 143/73 97 03/16/22 08:29 86 165/72 03/16/22 04:48 97.6 F 83 13 183/77 98 03/15/22 20:00 17 03/15/22 19:01 97.5 F L 82 15 142/67 95 Intake and Output 03/15/22 03/16/22 03/16/22 22:59 06:59 14:59 Intake Total 1100 Balance 1100 Intake: Intake, IV Titration 1100 Amount Ampicillin 2,000 mg In 200 Sodium Chloride 0.9% 100 ml @ 200 mls/hr IVPB Q4HR [facility] Rx#:[id number] Sodium Chloride 0.9% 1, 900 000 ml @ 75 mls/hr IV . [id number] [facility] Rx#:[id number] Other: Voiding Method Toilet # Voids 4 1 PHYSICAL EXAMINATION VITAL SIGNS: Reviewed General: The patient is awake and alert, in no distress, and does not appear acutely ill. Skin: Skin is warm and dry and no rashes or lesions are noted. Eye: Pupils are equal, round and reactive to light, extra-ocular movements are intact; there is normal conjunctiva bilaterally. Ears, nose, mouth and throat: There are moist mucous membranes and no oral lesions. Neck: The neck is supple, there is no tenderness or JVD. Cardiovascular: There is irregular regular rate and rhythm. No murmur, rub or gallop is appreciated. Respiratory: Lungs are clear to auscultation, respirations are non-labored, breath sounds are equal. Gastrointestinal: Soft, non-distended, non-tender abdomen without masses or organomegaly noted. There is no rebound or guarding present. Bowel sounds are unremarkable. Back: There is no tenderness to palpation in the midline. There is no obvious deformity. Musculoskeletal: Normal ROM, no tenderness, There is no pedal edema. There is no calf tenderness or swelling. Extremities: Mild bilateral pitting edema Vascular: Femoral pulse is normal. Posterior tibial pulses are normal .Dorsalis pedis is palpable. Neurological: CN II-XII intact. There are no obvious motor or sensory deficits. Speech is normal. Psychiatric: Cooperative, appropriate mood & affect, normal judgment Results 03/15/22 06:44 03/15/22 06:44 Current Medications Generic Name Dose Route Start Last Admin Trade Name Freq PRN Reason Stop Dose Admin Acetaminophen 650 mg 03/11/22 20:04 Acetaminophen Tab 325 Mg Tab PO Q6HR PRN Mild Pain or Fever > 100.5 Amlodipine Besylate 5 mg 03/13/22 13:30 03/16/22 08:27 Amlodipine 5 Mg Tab PO 5 mg DAILY [facility] Administration Aspirin 81 mg 03/12/22 09:00 03/16/22 08:27 Aspirin 81 Mg PO 81 mg DAILY [facility] Administration Atorvastatin Calcium 10 mg 03/12/22 09:00 03/16/22 08:27 Atorvastatin 10 Mg Tab PO 10 mg DAILY [facility] Administration Carvedilol 6.25 mg 03/12/22 07:30 03/16/22 08:27 Carvedilol 6.25 Mg Tab PO 6.25 mg BID-W/MEALS [facility] Administration Finasteride 5 mg 03/12/22 09:00 03/16/22 08:27 Finasteride 5 Mg Tab PO 5 mg DAILY [facility] Administration Folic Acid 1 mg 03/13/22 09:00 03/16/22 08:27 Folic Acid 1 Mg Tab PO 1 mg DAILY [facility] Administration Hydralazine HCl 10 mg 03/13/22 13:28 Hydralazine Hcl 20 Mg/Ml 1 Ml Vial IVP Q6HR PRN Blood Pressure - High Sodium Chloride 1,000 mls @ 75 mls/hr 03/11/22 20:15 03/16/22 08:26 Saline 0.9% IV 75 mls/hr .[id number] [facility] Administration Ampicillin Sodium 2,000 mg/ 100 mls @ 200 mls/hr 03/14/22 00:00 03/16/22 08:2 8 Sodium Chloride IVPB 200 mls/hr Q4HR [facility] Administration Protocol Insulin Aspart 0 unit 03/12/22 07:30 03/16/22 08:28 Insulin Aspart (Novolog) 100 Unit/Ml Vial SQ 6 unit ACHS [facility] Administration Protocol Magnesium Hydroxide 2,400 mg 03/14/22 11:28 03/14/22 12:38 Magnesium Hydroxide 2,400 Mg/10 Ml Cup PO 2,400 mg BID PRN Administration Constipation Morphine Sulfate 2 mg 03/13/22 13:05 03/16/22 04:22 Morphine Sulfate 2 Mg/Ml Syringe IVP 2 mg Q4HR PRN Administration Pain/Discomfort Naloxone HCl 0.2 mg 03/11/22 20:04 Naloxone 0.4 Mg/Ml 1 Ml Vial IV Q2M PRN Opioid Reversal Ondansetron HCl 4 mg 03/11/22 20:04 03/12/22 15:51 Ondansetron 4 Mg/2 Ml Vial IVP 4 mg Q8HR PRN Administration Nausea And Vomiting Polyethylene Glycol 17 gm 03/14/22 11:27 03/14/22 14:14 Polyethylene Glycol 3350 17 Gm Powd.Pack PO 17 gm TID PRN Administration Constipation Tizanidine HCl 4 mg 03/12/22 14:00 03/16/22 05:42 Tizanidine 4 Mg Tab PO 4 mg 0600,1400,2200 [facility] Administration Tramadol HCl 50 mg 03/12/22 12:53 03/16/22 05:42 Tramadol 50 Mg Tab PO 50 mg TID PRN Administration Breakthrough Pain Intake and Output 03/15/22 03/16/22 03/16/22 22:59 06:59 14:59 Intake Total 1100 Balance 1100 Intake: Intake, IV Titration 1100 Amount Ampicillin 2,000 mg In 200 Sodium Chloride 0.9% 100 ml @ 200 mls/hr IVPB Q4HR [facility] Rx#:[id number] Sodium Chloride 0.9% 1, 900 000 ml @ 75 mls/hr IV . [id number] [facility] Rx#:[id number] Other: Voiding Method Toilet # Voids 4 1 03/15/22 06:44 03/15/22 06:44 Assessment and Plan Assessment: Bacteremia rule out endocarditis Plan: Patient will go for transesophageal echocardiogram tomorrow morning Nothing by mouth at midnight Further recommendations based on clinical course The above impression and plan of care have been discussed and directed by the signing physician. Dee Siegel, nurse practitioner, acting as scribe for signing physician.
[2022-03-16 17:09] LABS: Glucose,Whole Blood 105 mg/dL (70-110)
[2022-03-16 20:32] LABS: Glucose,Whole Blood 211 mg/dL (70-110)
[2022-03-17] MEDS: SODIUM CHLORIDE 0.9% 1,000 ML IV SCH ×2 (03:16→21:37)
[2022-03-17] MEDS: AMPICILLIN 2,000 MG in SODIUM CHLORIDE 0.9% 100 ML IVPB SCH ×6 (03:56→23:31)
[2022-03-17] MEDS: MORPHINE SULFATE 2 MG/ML SYRINGE IVP PRN ×4 (03:57→21:30)
[2022-03-17] MEDS: tiZANidine 4 MG TAB PO SCH ×3 (05:32→21:38)
[2022-03-17 07:01] LABS: Glucose,Whole Blood 174 mg/dL (70-110)
--- NOTE | 2022-03-17 07:24 | P.PN ---
Subjective Progress Note Date: 03/15/22 Principal diagnosis: Bacteremia and discitis Patient is a 81 year old male presenting to the hospital with lower back pain and abnormal MRI done in the outpatient MRI suggestive of L2 and at the vertebral bodies discitis and possible osteomyelitis in this patient who is status post IR aspirate of that area and subsequently blood cultures came back positive with Enterococcus faecalis On today's evaluation that is 03/15/2022, patient continues to be afebrile, the patient is a breathing comfortably on room air, the patient denies chest pain shortness of breath or cough, the patient lower back pain has slightly decreased in intensity denies any weakness in the leg and no nausea no vomiting no abdominal pain no diarrhea Objective - Vital Signs Vital signs: Vital Signs Temp 98 F 03/15/22 11:14 Pulse 83 03/15/22 11:14 Resp 17 03/15/22 11:14 BP 151/81 03/15/22 11:14 Pulse Ox 99 03/15/22 11:14 FiO2 Intake & Output 03/14/22 03/15/22 03/15/22 18:59 06:59 18:59 Intake Total 900 800 Balance 900 800 Weight 74.843 kg Intake: Intake, IV Titration 900 200 Amount Ampicillin 2,000 mg In 200 Sodium Chloride 0.9% 100 ml @ 200 mls/hr IVPB Q4HR [facility] Rx#:[id number] Sodium Chloride 0.9% 1, 900 000 ml @ 75 mls/hr IV . [id number] [facility] Rx#:[id number] Oral 600 Other: Voiding Method Toilet Toilet # Voids 3 - Exam GENERAL DESCRIPTION: An elderly male lying in bed in no distress RESPIRATORY SYSTEM: Unlabored breathing , decreased breath sounds at bases HEART: S1 S2 regular rate and rhythm , ABDOMEN: Soft , no tenderness EXTREMITIES: No edema feet - Labs CBC & Chem 7: 03/15/22 06:44 03/15/22 06:44 Labs: Abnormal Lab Results - Last 24 Hours (Table) 03/14/22 03/14/22 03/15/22 Range/Units 17:03 20:17 06:44 Hgb 12.5 L (13.0-17.5) gm/dL Lymphocytes # 0.8 L (1.0-4.8) k/uL Sodium (137-145) mmol/L Glucose (74-99) mg/dL POC Glucose (mg/dL) 138 H 241 H (70-110) mg/dL 03/15/22 03/15/22 03/15/22 Range/Units 06:44 07:05 11:14 Hgb (13.0-17.5) gm/dL Lymphocytes # (1.0-4.8) k/uL Sodium 134 L (137-145) mmol/L Glucose 184 H (74-99) mg/dL POC Glucose (mg/dL) 203 H 305 H (70-110) mg/dL Microbiology - Last 24 Hours (Table) 03/13/22 11:15 Gram Stain - Preliminary Aspirate Body Fluid Culture - Preliminary 03/14/22 07:05 Blood Culture - Preliminary Blood No Growth after 24 hours 03/13/22 11:15 Acid Fast Bacilli Smear - Final Aspirate Acid Fast Bacilli Culture - Preliminary 03/13/22 12:00 Blood Culture - Preliminary Blood No Growth after 24 hours 03/13/22 05:49 Blood Culture Gram Stain - Preliminary Blood 03/11/22 19:35 Blood Culture Gram Stain - Preliminary Blood Blood Culture - Preliminary Enterococcus faecalis 03/11/22 19:20 Blood Culture Gram Stain - Preliminary Blood Blood Culture - Preliminary Group D Enterococcus Assessment and Plan (1) Discitis Current Visit: Yes Status: Acute Code(s): M46.40 - DISCITIS, UNSPECIFIED, SITE UNSPECIFIED SNOMED Code(s): 2251950 Plan: 1patient been complaining of lower back pain for 3 weeks in this patient with no fever no tenderness no white count however did have abnormal MRI of the lumbosacral spine underlying discitis not entirely excluded. 2the patient is status post IR aspirate of the affected area and the fluid has been sent for gram stain and culture. 3patient Enterococcus faecalis bacteremia likely the source of this L2-3 discitis and Osteomyelitis, patient also have a abnormal echo suggestive possible vegetation on the aortic valve , however will recommend cardiology evaluation and YVETTE to confirm and also to see the integrity of aortic valve 4- patient to continue with ampicillin , blood culture repeat has been negative so far and if remains to be negative at 72 hours to get a PICC line Time with Patient: Less than 30
--- NOTE | 2022-03-17 07:26 | P.PN ---
Subjective Progress Note Date: 03/16/22 Principal diagnosis: Bacteremia and discitis Patient is a 81 year old male presenting to the hospital with lower back pain and abnormal MRI done in the outpatient MRI suggestive of L2 and at the vertebral bodies discitis and possible osteomyelitis in this patient who is status post IR aspirate of that area and subsequently blood cultures came back positive with Enterococcus faecalis, patient also have abnormal echo suspicious for aortic valve vegetation cardiology has been consulted for YVETTE On today's evaluation that is 03/16/2022, patient denies any fever or any chills, the patient is a breathing comfortably on room air, the patient denies chest pain shortness of breath or cough, the patient is feeling slightly better and his lower back pain has slightly decreased in intensity , the patient denies nausea no vomiting no abdominal pain no diarrhea Objective - Vital Signs Vital signs: Vital Signs Temp 97.8 F 03/16/22 11:10 Pulse 78 03/16/22 11:10 Resp 17 03/16/22 11:10 BP 143/73 03/16/22 11:10 Pulse Ox 97 03/16/22 11:10 FiO2 Intake & Output 03/15/22 03/16/22 03/16/22 18:59 06:59 18:59 Intake Total 1100 Balance 1100 Intake: Intake, IV Titration 1100 Amount Ampicillin 2,000 mg In 200 Sodium Chloride 0.9% 100 ml @ 200 mls/hr IVPB Q4HR [facility] Rx#:[id number] Sodium Chloride 0.9% 1, 900 000 ml @ 75 mls/hr IV . [id number] POLO Rx#:[id number] Other: Voiding Method Toilet Toilet Toilet # Voids 4 1 - Exam GENERAL DESCRIPTION: An elderly male lying in bed in no distress RESPIRATORY SYSTEM: Unlabored breathing , decreased breath sounds at bases HEART: S1 S2 regular rate and rhythm , ABDOMEN: Soft , no tenderness EXTREMITIES: No edema feet - Labs CBC & Chem 7: 03/15/22 06:44 03/15/22 06:44 Labs: Abnormal Lab Results - Last 24 Hours (Table) 03/15/22 03/16/22 03/16/22 Range/Units 20:33 07:05 11:09 POC Glucose (mg/dL) 192 H 218 H 217 H (70-110) mg/dL Microbiology - Last 24 Hours (Table) 03/13/22 11:15 Gram Stain - Preliminary Aspirate Body Fluid Culture - Preliminary 03/14/22 07:05 Blood Culture - Preliminary Blood No Growth after 48 hours 03/13/22 05:49 Blood Culture Gram Stain - Preliminary Blood Blood Culture - Preliminary Group D Enterococcus 03/13/22 12:00 Blood Culture - Preliminary Blood No Growth after 48 hours Assessment and Plan (1) Discitis Current Visit: Yes Status: Acute Code(s): M46.40 - DISCITIS, UNSPECIFIED, SITE UNSPECIFIED SNOMED Code(s): 4259602 Plan: 1patient been complaining of lower back pain for 3 weeks in this patient with no fever no tenderness no white count however did have abnormal MRI of the lumbosacral spine underlying discitis not entirely excluded. 2the patient is status post IR aspirate of the affected area and the fluid has been sent for gram stain and culture. 3patient Enterococcus faecalis bacteremia likely the source of this L2-3 discitis and Osteomyelitis, patient also have a abnormal echo suggestive possible vegetation on the aortic valve , cardiology has seen the patient and possible YVETTE to confirm the diagnoses of endocarditis also to see the integrity of aortic valve 4- patient to continue with ampicillin , blood culture repeat has been negative, patient will be able to get a PICC line in the morning, outpatient antibiotics has been arranged for the patient Time with Patient: Less than 30
[2022-03-17] MEDS: amLODIPine 5 MG TAB PO SCH (08:16)
[2022-03-17] MEDS: carvediloL 6.25 MG TAB PO SCH ×2 (08:16→18:09)
[2022-03-17] MEDS: ATORVASTATIN 10 MG TAB PO SCH (08:16)
[2022-03-17] MEDS: ASPIRIN 81 MG PO SCH (08:16)
[2022-03-17] MEDS: INSULIN ASPART (NovoLOG) 100 UNIT/ML VIAL SQ SCH ×4 (08:17→20:09)
[2022-03-17] MEDS: BENZOCAINE SPRAY 1 CAN MUCOUS MEM ONE ×2 (10:14→10:26)
[2022-03-17] MEDS ORDERED: IV FLUID CONTINUATION 650 ML IV ONE (10:14)
--- NOTE | 2022-03-17 10:19 | P.PN ---
Subjective Progress Note Date: 03/17/22 Pt doing well today. Planned YVETTE and PICC line placement. BCx NGTD x 72 hours. 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 Cardiology consult placed with YVETTE which will likely be done tomorrow. Per ID well order for PICC line once blood cultures are negative. Blood cultures on 03/13/2022 is positive. Blood culture on 03/14/2022 is negative so far. PICC line order placed Diabetes mellitus type 2 Sliding-scale insulin Hypertension Resume amlodipine and hydralazine as needed Coronary artery disease status post CABG Resume aspirin and statin and beta deon BPH Resume Flomax Anticipated discharge: In the next 24 if surveillance blood culture negative and YVETTE negative for endocarditis. Patient will be discharged home. He has great support at home for antibiotic home infusion. Objective - Vital Signs Vital signs: Vital Signs Temp 97.8 F 03/17/22 05:04 Pulse 84 03/17/22 10:14 Resp 16 03/17/22 10:14 BP 161/84 03/17/22 10:14 Pulse Ox 99 03/17/22 10:14 FiO2 Intake & Output 03/16/22 03/17/22 03/17/22 18:59 06:59 18:59 Other: Voiding Method Toilet Toilet # Voids 4 1 - Labs CBC & Chem 7: 03/15/22 06:44 03/15/22 06:44 Labs: Abnormal Lab Results - Last 24 Hours (Table) 03/16/22 03/16/22 03/17/22 Range/Units 11:09 20:31 07:00 POC Glucose (mg/dL) 217 H 211 H 174 H (70-110) mg/dL Microbiology - Last 24 Hours (Table) 03/14/22 07:05 Blood Culture - Preliminary Blood No Growth after 72 hours 03/13/22 11:15 Gram Stain - Preliminary Aspirate Body Fluid Culture - Preliminary 03/11/22 19:20 Blood Culture Gram Stain - Final Blood Blood Culture - Final Enterococcus faecalis 03/11/22 19:35 Blood Culture Gram Stain - Final Blood Blood Culture - Final Enterococcus faecalis 03/13/22 12:00 Blood Culture - Preliminary Blood No Growth after 72 hours 03/13/22 11:15 Anaerobic Culture - Preliminary Aspirate
[2022-03-17] MEDS ORDERED: MIDAZOLAM 2 MG/2 ML VIAL IV ONE (10:26)
[2022-03-17] MEDS ORDERED: fentaNYL (PF) 50 MCG/ML 2 ML AMP IV ONE (10:26)
[2022-03-17] MEDS ORDERED: LIDOCAINE 1% INJ 10MG/ML (5 ML VIAL-PF) SQ ONE (11:06)
--- NOTE | 2022-03-17 11:22 | IR ---
PICC LINE PLACEMENT: HISTORY: Infection requiring long-term antibiotic therapy PROCEDURE: Ultrasound and fluoroscopic guidance of PICC line placement. COMPLICATIONS: None ANESTHESIA: 1. 1% Lidocaine locally. FINDINGS/TECHNIQUE: The procedure was explained to the patient. The risks, complications, benefits and alternatives were discussed and any questions were answered. Informed consent was obtained. The patient was placed supine on the fluoroscopic table and prepped and draped in the usual sterile fash ion. Utilizing a 21 gauge needle and sonographic and fluoroscopic guidance, access in the left basi lic vein was achieved and there is placement of a 0.018 guidewire. The vein is patent. A 4-F sheath was placed over the guidewire. The guidewire and dilator were removed and a 4-F. PICC line was plac ed through the sheath with the tip at the level of the SVC. The sheath was removed, the catheter was flushed and sutured into position. The patient was stable throughout the procedure and remained sta ble upon discharge from the Department of Radiology. The vein puncture was patent under ultrasound. A noland scale image was obtained to document patency of the vein punctured. All elements of the maximal barrier technique were utilized. FLUOROSCOPY TIME: 0.4 minutes and 1 images submitted IMPRESSION: Successful PICC line placement under ultrasound and fluoroscopic guidance.
[2022-03-17 11:36] LABS: Glucose,Whole Blood 110 mg/dL (70-110)
[2022-03-17] MEDS: traMADol 50 MG TAB PO PRN (11:43)
[2022-03-17] MEDS: FINASTERIDE 5 MG TAB PO SCH (11:44)
[2022-03-17] MEDS: FOLIC ACID 1 MG TAB PO SCH (11:44)
--- NOTE | 2022-03-17 16:01 | P.PN ---
Subjective Progress Note Date: 03/17/22 Principal diagnosis: Bacteremia and discitis Patient is a 81 year old male presenting to the hospital with lower back pain and abnormal MRI done in the outpatient MRI suggestive of L2 and at the vertebral bodies discitis and possible osteomyelitis in this patient who is status post IR aspirate of that area and subsequently blood cultures came back positive with Enterococcus faecalis, patient also have abnormal echo suspicious for aortic valve vegetation cardiology has been consulted, the patient is status post YVETTE this morning official report is pending On today's evaluation that is 03/17/2022, patient remains to be afebrile, the patient is a breathing comfortably on room air, the patient denies chest pain shortness of breath or cough, the patient is feeling slightly better and his lower back pain has slightly decreased in intensity , the patient denies nausea no vomiting no abdominal pain no diarrhea Objective - Vital Signs Vital signs: Vital Signs Temp 97.8 F 03/17/22 05:04 Pulse 71 03/17/22 10:46 Resp 16 03/17/22 10:46 BP 133/65 03/17/22 10:46 Pulse Ox 97 03/17/22 10:46 FiO2 Intake & Output 03/16/22 03/17/22 03/17/22 18:59 06:59 18:59 Other: Voiding Method Toilet Toilet Toilet # Voids 4 1 - Exam GENERAL DESCRIPTION: An elderly male lying in bed in no distress RESPIRATORY SYSTEM: Unlabored breathing , decreased breath sounds at bases HEART: S1 S2 regular rate and rhythm , ABDOMEN: Soft , no tenderness EXTREMITIES: No edema feet - Labs CBC & Chem 7: 03/15/22 06:44 03/15/22 06:44 Labs: Abnormal Lab Results - Last 24 Hours (Table) 03/16/22 03/17/22 Range/Units 20:31 07:00 POC Glucose (mg/dL) 211 H 174 H (70-110) mg/dL Microbiology - Last 24 Hours (Table) 03/14/22 07:05 Blood Culture - Preliminary Blood No Growth after 72 hours 03/13/22 11:15 Gram Stain - Preliminary Aspirate Body Fluid Culture - Preliminary 03/11/22 19:20 Blood Culture Gram Stain - Final Blood Blood Culture - Final Enterococcus faecalis 03/11/22 19:35 Blood Culture Gram Stain - Final Blood Blood Culture - Final Enterococcus faecalis 03/13/22 12:00 Blood Culture - Preliminary Blood No Growth after 72 hours 03/13/22 11:15 Anaerobic Culture - Preliminary Aspirate Assessment and Plan (1) Discitis Current Visit: Yes Status: Acute Code(s): M46.40 - DISCITIS, UNSPECIFIED, SITE UNSPECIFIED SNOMED Code(s): 1344105 Plan: 1patient been complaining of lower back pain for 3 weeks in this patient with no fever no tenderness no white count however did have abnormal MRI of the lumbosacral spine underlying discitis not entirely excluded. 2the patient is status post IR aspirate of the affected area and the fluid has been sent for gram stain and culture. 3patient Enterococcus faecalis bacteremia likely the source of this L2-3 discitis and Osteomyelitis, patient also have a abnormal echo suggestive possible vegetation on the aortic valve , cardiology has seen the patient and patient did have a YVETTE this morning [facility] report did shows vegetation operation report is currently pending 4- patient to continue with ampicillin however now with evidence of possible endocarditis we will add Rocephin 2 g every 12 hours for 2 weeks in addition to the 6 weeks of ampicillin 2 g every 6 hours, gentamicin is not a good choice as high risk of nephrotoxicity in outpatient setting, plan of care was discussed in detail with the daughter on the phone Time with Patient: Less than 30
[2022-03-17 17:10] LABS: Glucose,Whole Blood 194 mg/dL (70-110)
[2022-03-17 20:05] LABS: Glucose,Whole Blood 177 mg/dL (70-110)
--- NOTE | 2022-03-18 01:55 | ECHOT ---
TRANSESOPHAGEAL ECHOCARDIOGRAM INDICATION: Sepsis, rule out infective endocarditis. PROCEDURE NOTE: After obtaining informed consent, transesophageal echocardiogram was performed in left lateral position using an Omniplane probe. Local and IV sedation were obtained with Versed and fentanyl. The patient tolerated the procedure well without any obvious immediate complications. 2D color Doppler and spectral analysis have been performed. Total sedation time was 9 minutes. FINDINGS: 1. Aortic valve is a 3-leaflet valve. There is an echodense lesion attached to the right coronary cusp that involves both the ventricular and aortic surface of the valve. This appearance is consistent with a vegetation. There is mild aortic regurgitation noted. There is no perivalvular abscess. 2. Mitral valve is anatomically normal with mild mitral regurgitation. 3. Tricuspid valve appears normal. 4. Left ventricle has normal size and systolic function. 5. Left atrium, right atrium, and right ventricle seen within normal limits. Left atrial appendage appears normal. There is no evidence of [id number] shunt by color-flow Doppler or [id number] shunt by agitated saline contrast study. CONCLUSIONS: An echodense lesion involving right coronary cusp is noted. It is consistent with the appearance of a vegetation. There is mild aortic regurgitation. Otherwise, aortic valve appears structurally intact. MMODL / IJN: [id number] /
[2022-03-18] MEDS: MORPHINE SULFATE 2 MG/ML SYRINGE IVP PRN ×2 (03:03→09:19)
[2022-03-18] MEDS: AMPICILLIN 2,000 MG in SODIUM CHLORIDE 0.9% 100 ML IVPB SCH ×2 (03:04→09:10)
[2022-03-18] MEDS: tiZANidine 4 MG TAB PO SCH (05:20)
[2022-03-18 05:23] VITALS: TEMP 98.2
[2022-03-18 07:27] LABS: Glucose,Whole Blood 173 mg/dL (70-110)
[2022-03-18] MEDS: INSULIN ASPART (NovoLOG) 100 UNIT/ML VIAL SQ SCH (08:58)
[2022-03-18] MEDS: FOLIC ACID 1 MG TAB PO SCH (08:59)
[2022-03-18] MEDS: ATORVASTATIN 10 MG TAB PO SCH (08:59)
[2022-03-18] MEDS: FINASTERIDE 5 MG TAB PO SCH (08:59)
[2022-03-18] MEDS: ASPIRIN 81 MG PO SCH (08:59)
[2022-03-18] MEDS: amLODIPine 5 MG TAB PO SCH (09:00)
[2022-03-18] MEDS: carvediloL 6.25 MG TAB PO SCH (09:00)
[2022-03-18 11:42] LABS: Glucose,Whole Blood 318 mg/dL (70-110)
[2022-03-18 12:16] VITALS: BP 162/73; PULSE 81; RESP 17
--- NOTE | 2022-03-18 13:14 | P.DS ---
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 Workup in the ED showed no leukocytosis, CRP was within normal limits. Overall labs with within normal limits. Lactic acid slightly elevated at 2.1 Pts blood cultures returned positive for Enterococcus faecalis. ID was consulted and recommended treatment with ceftriaxone and ampicillin. He also recommended CT-guided aspirate of the lumbar spine, which was done on 03/13, however, this did not grow any bacteria. Patient's blood cultures cleared after 48 hours and PICC line was placed. Patient was discharged home with anticipated 6 week course of antibiotics. Patient also underwent YVETTE while he was in the hospital to rule out possible vegetation seen on TTE, but this was negative for infection. Patient will be followed up by primary care as well as infectious disease. Back pain improved while he was in the hospital. I spent 40 minutes coordinating this discharge, discharge date 03/18 Gen: awake, alert HEENT: normocephalic, atraumatic, good hearing acuity, moist mucous membranes Resp: good air exchange, breathing comfortably with no accessory muscle use CVS: good distal perfusion x 4, GI: soft, NTTP, ND : no SPT, no CVAT, ackerman catheter not present MSK: no pitting edema, no clubbing Neuro: non-focal, moving all extremities Psych: cooperative, euthymic mood Patient Condition at Discharge: Good Plan - Discharge Summary Discharge Rx Participant: Yes New Discharge Prescriptions: New cefTRIAXone [Rocephin] 2,000 mg IVP Q12HR #28 each Ampicillin Sodium 2 gm IJ Q6H #168 each amLODIPine [Norvasc] 5 mg PO DAILY #30 tab Acetaminophen Tab [Tylenol] 650 mg PO Q6HR PRN tab PRN Reason: Mild Pain Or Fever > 100.5 Continue Folic Acid 0.8 mg PO DAILY carvediloL [Coreg] 6.25 mg PO BID tiZANidine [Zanaflex] 4 mg PO DAILY Pioglitazone [Actos] 45 mg PO DAILY metFORMIN HCL [Glucophage] 1,000 mg PO BID Lovastatin [Mevacor] 20 mg PO DAILY Finasteride [Proscar] 5 mg PO DAILY Aspirin [Adult Low Dose Aspirin EC] 81 mg PO DAILY Changed Furosemide [Lasix] 20 mg PO DAILY #0 traMADol HCL 50 mg PO Q8H PRN #9 tab PRN Reason: Pain Discharge Medication List Aspirin [Adult Low Dose Aspirin EC] 81 mg PO DAILY 09/05/21 [History] Finasteride [Proscar] 5 mg PO DAILY 09/05/21 [History] Folic Acid 0.8 mg PO DAILY 09/05/21 [History] Lovastatin [Mevacor] 20 mg PO DAILY 09/05/21 [History] Pioglitazone [Actos] 45 mg PO DAILY 09/05/21 [History] carvediloL [Coreg] 6.25 mg PO BID 09/05/21 [History] metFORMIN HCL [Glucophage] 1,000 mg PO BID 09/05/21 [History] tiZANidine [Zanaflex] 4 mg PO DAILY 03/12/22 [History] Acetaminophen Tab [Tylenol] 650 mg PO Q6HR PRN tab 03/18/22 [Rx] Ampicillin Sodium 2 gm IJ Q6H #168 each 03/18/22 [Rx] Furosemide [Lasix] 20 mg PO DAILY #0 03/18/22 [Rx] amLODIPine [Norvasc] 5 mg PO DAILY #30 tab 03/18/22 [Rx] cefTRIAXone [Rocephin] 2,000 mg IVP Q12HR #28 each 03/18/22 [Rx] traMADol HCL 50 mg PO Q8H PRN #9 tab 03/18/22 [Rx] Follow up Appointment(s)/Referral(s): Skyler Moffett, [place] [PHYSICIAN [employer]] - 2 Weeks (Patient may follow-up with Skyler Moffett PA-C or Dr. Silvano Hurst at [facility] in 2-3 weeks following discharge. ) [facility], [NON-STAFF] - 03/18/22 8:00 pm (Start of Care (SOC) on 03.18.22 at 8pm with [facility]) [facility]fusion [NON-STAFF] - As Needed ([facility] P: [phone], who updated SW that patient is covered at 80% home, office, teach&train, until his $5,900 out of pocket is met. Ampicillin 2 gram gravity every 6 hours per [facility]. ) Andre Berger DO [Primary Care Provider] - 1-2 days Kristal Pendleton MD [STAFF PHYSICIAN] - 1 Week (call for follow up appt) Ambulatory/Diagnostic Orders: Basic Metabolic Panel [LAB.AMB] Location: None Selected C Reactive Protein [LAB.AMB] Location: None Selected Complete Blood Count w/diff [LAB.AMB] Location: None Selected Erythrocyte Sedimentation Rate [LAB.AMB] Location: None Selected Patient Instructions/Handouts: Back Pain (GEN) Discharge Disposition: HOME WITH HOME HEALTH SERVICES
== END 2022-03-18 12:20 | disposition home health service (06) | DRG 638 ==
LOC: EC 18:15 → 5NMEDONC 20:04
PROVIDERS: ADMIT Internal Medicine; ATTEND Internal Medicine
PROC: 02HV33Z Insertion of Infusion Device into Superior Vena Cava, Percutaneous Approach (ICD-10-PCS; principal; 2022-03-17 07:30)
DX: E11.69 Type 2 diabetes mellitus with other specified complication (principal); M46.26 Osteomyelitis of vertebra, lumbar region; M46.36 Infection of intervertebral disc (pyogenic), lumbar region; R78.81 Bacteremia; M46.46 Discitis, unspecified, lumbar region; B95.2 Enterococcus as the cause of diseases classified elsewhere; E78.5 Hyperlipidemia, unspecified; I10 Essential (primary) hypertension; I25.10 Atherosclerotic heart disease of native coronary artery without angina pectoris; M47.816 Spondylosis without myelopathy or radiculopathy, lumbar region; M51.34 Other intervertebral disc degeneration, thoracic region; M41.80 Other forms of scoliosis, site unspecified; E11.9 Type 2 diabetes mellitus without complications; K59.00 Constipation, unspecified; N40.0 Benign prostatic hyperplasia without lower urinary tract symptoms; Z95.1 Presence of aortocoronary bypass graft; Z87.891 Personal history of nicotine dependence; Z85.819 Personal history of malignant neoplasm of unspecified site of lip, oral cavity, and pharynx; Z79.899 Other long term (current) drug therapy; Z79.82 Long term (current) use of aspirin; Z79.4 Long term (current) use of insulin
CPT/HCPCS: 36415; 36573; 77012; 80048; 80053; 82565; 83036; 83605; 85025; 85610; 85652; 85730; 86140; 87040; 87070; 87075; 87077; 87102; 87116; 87186; 87205; 87206; 93306; 93312; 93320; 93325; 96374; 99284

== ENCOUNTER → 2022-03-11 | Outpatient (CLI) | payer MEDICARE ==
--- NOTE | 2022-03-11 16:14 | MR ---
EXAMINATION TYPE: MR lumbar spine wo con DATE OF EXAM: 03/11/2022 COMPARISON: None HISTORY: Lower back pain. Multiplanar multiecho imaging of the lumbar spine without contrast. Normal alignment. There is narrowing of disc spaces throughout the lumbar spine. There is increased s ignal on the T2 images on both sides of the L2 and L3 discs. L3 disc space is narrowed with slight in creased fluid signal. There is posterior endplate spur formation and minimal disc bulging throughout the lumbar spine. No significant spinal stenosis. No lumbar paraspinal mass. No significant compressi on deformity. IMPRESSION: Edema in the L2 and L3 vertebral bodies with increased fluid signal in the disc that is consistent wi th discitis and possible osteomyelitis. No fracture seen. Multilevel spondylotic changes. No signific ant spinal stenosis.
== END | disposition home or self-care (01) ==
LOC: RADMRIMAIN 07:37
PROVIDERS: ATTEND Family Medicine
DX: M48.061 Spinal stenosis, lumbar region without neurogenic claudication (principal)
CPT/HCPCS: 72148

== ENCOUNTER → 2022-12-19 | Outpatient (CLI) | payer MEDICARE ==
--- NOTE | 2022-12-19 11:59 | FL ---
EXAMINATION TYPE: FL barium swallow w video DATE OF EXAM: 12/19/2022 CLINICAL HISTORY: 82-year-old male R13.12, oropharyngeal phase dysphagia, sensation of food sticking. TECHNIQUE: Deglutition study is performed utilizing thin liquid barium, barium thick pudding, and ba rium coated cracker. COMPARISON: None. Total fluoroscopy time: 1 minute 46 seconds. Total images: None. Real-time fluoroscopy support was provided to speech pathology. DOSE AREA PRODUCT (DAP) UGY*M,MGY*CM: 319.5. FINDINGS: The oral and pharyngeal phases show satisfactory initiation and propagation with all modalities teste d. Normal mastication is seen with solid modalities tested. There is no evidence of penetration or aspiration with any modality tested. No significant pharyngeal residue was appreciated. IMPRESSION: Normal deglutition study. Please refer to speech therapist notes for further details if necessary.
== END | disposition home or self-care (01) ==
LOC: RADFLMAIN 11:13
PROVIDERS: ATTEND Family Medicine
DX: R13.12 Dysphagia, oropharyngeal phase (principal)
CPT/HCPCS: 74230

== ENCOUNTER → 2023-06-21 | Outpatient (CLI) | payer MEDICARE ==
[2023-06-21 12:22] LABS: African American GFR (CKD) 80 (>60 ml/min/1.73 sqM); Blood Urea Nitrogen 20 mg/dL (9-20); Non-African American GFR(CKD) 69 (>60 ml/min/1.73 sqM)
--- NOTE | 2023-06-21 13:18 | CT ---
EXAMINATION TYPE: CT soft tissue neck w con DATE OF EXAM: 06/21/2023 COMPARISON: None HISTORY: left side jaw swelling CT DLP: 631.3 mGycm CONTRAST: CT scan of the neck is performed with IV Contrast, patient injected with 100 mL of Isovue 300. Contrast enhanced CT of the neck was performed from the skull base through the lung apices. AIRWAY: The supraglottic, glottic, and subglottic portions of the airway appear patent and free of mass. SALIVARY GLANDS: Irregular necrotic mass arising from the anterior aspect of the left submandibular g land measures approximately 3.1 x 3.3 x 3.1 cm and is felt to reflect malignancy until proven otherwi se. There is overlying mild skin thickening seen. Right submandibular gland is unremarkable as are th e parotid glands. THYROID GLAND: No nodules or masses seen. LYMPH NODES: No adenopathy seen greater than 1cm. LUNG APICES: No nodule or mass is seen. OTHER: Vascular structures are patent. No significant degenerative change of the cervical spine. N o abscess seen. IMPRESSION: Irregular necrotic mass arising from the anterior aspect of the left submandibular gland measures isaias roximately 3.1 x 3.3 x 3.1 cm and is felt to reflect malignancy until proven otherwise.
== END | disposition home or self-care (01) ==
LOC: RADCTMAIN 10:12
PROVIDERS: ATTEND Otolaryngology
DX: Z13.9 Encounter for screening, unspecified (principal); R22.1 Localized swelling, mass and lump, neck
CPT/HCPCS: 82565; 84520; 70491; 36415; Q9967

== ENCOUNTER 2023-07-20 08:20 | Day surgery (SDC) | payer MEDICARE ==
[2023-07-20 08:52] VITALS: RESP 16; TEMP 97.2
[2023-07-20] MEDS ORDERED: ALPRAZolam 0.25 MG TAB PO STA (08:54)
[2023-07-20 09:43] VITALS: BP 162/82; PULSE 78
--- NOTE | 2023-07-20 13:46 | US ---
ULTRASOUND GUIDED CORE BIOPSY OF LEFT SUBMANDIBULAR MASS: CLINICAL HISTORY: Left submandibular mass FINDINGS: The procedure was explained to the patient. The risks, complications, benefits and alternatives were discussed and any questions were answered. Informed consent was obtained. Patient was placed supin e on the ultrasound table and prepped and draped in the usual sterile fashion. Utilizing a 18 gauge needle, two passes were made into the left submandibular mass. Patient was stable throughout the procedure. Pathology is pending. All elements of maximal barrier and sterile technique were utilized. IMPRESSION: 1. Successful ultrasound guided core biopsy of left submandibular mass.
== END 2023-07-20 10:05 | disposition home or self-care (01) ==
LOC: RADPROMAIN 08:20
PROVIDERS: ATTEND Otolaryngology
DX: R22.1 Localized swelling, mass and lump, neck (principal)
CPT/HCPCS: 21550